=== PATIENT | male | born 1955 | race Caucasian/White ===

== ENCOUNTER 2021-08-07 18:19 | Emergency (ER) | payer MEDICARE, OTHER, SELFPAY ==
--- NOTE | ~2021-08-07 | CT_ITS ---
EXAMINATION: CT abdomen pelvis wo con DATE: 08/07/2021 20:48 INDICATION: Bilateral flank pain radiating to lower abdomen for one month TECHNIQUE: Computed tomography (CT) of the abdomen and pelvis was performed without intravenous contr ast. Automated exposure control and iterative reconstruction technique were employed. Exam dose: 208 .97 mGy-cm total exam DLP. COMPARISON: 06/10/2019 CT abdomen pelvis with IV contrast material FINDINGS: There is chronic discoid scarring at the lung bases. Normal heart size. No pericardial or p leural effusion. Small sliding hiatal hernia. Status post cholecystectomy. The liver, spleen, pancreas, and adrenal glands are unremarkable. No stefan e duct or pancreatic duct dilatation. There is bilateral perinephric stranding; consider pyelonephritis. Multiple bilateral renal cysts are noted. No urinary tract calculus or hydroureteronephrosis. The uri nary bladder is unremarkable. No evidence of appendicitis. No bowel obstruction, bowel wall thickening, pneumatosis or intraperiton eal free air. There is atherosclerotic calcification of the abdominal aorta and iliac and femoral arteries. No abdo lola aortic aneurysm. No intraperitoneal or retroperitoneal or pelvic mass lesion or adenopathy or a scites. No suspicious osteolytic or osteoblastic lesions. IMPRESSION: Bilateral perinephric stranding; recommend clinical correlation for possible pyelonephri tis No urinary tract calculus or hydroureteronephrosis Bilateral renal cysts Status post cholecystectomy Small sliding hiatal hernia Reviewed, dictated and finalized at [facility]. Reviewed, dictated and finalized at location [facility]. IMPRESSION: Bilateral perinephric stranding; recommend clinical correlation fo r possible pyelonephritis No urinary tract calculus or hydroureteronephrosis Bilateral renal cysts Status post cholecystectomy Small sliding hiatal hernia
[2021-08-07 18:47] VITALS: BP 130/87; PULSE 93; RESP 17; TEMP 36.4; O2SAT 97
[2021-08-07 18:58] LABS: Basophils Percent Auto 0.3 % (0.2-1.2); Eosinophils Absolute Auto 0.1 K/mm3 (0-0.3); Eosinophils Percent Auto 1.1 % (0-4.4); Hematocrit 39.8 % (42.0-52.0); Hemoglobin 13.5 g/dL (14.0-18.0); Immature Granulocyte Absolute 0.04 K/mm3 (0.00-0.031); Immature Granulocyte Percent A 0.4 % (0-0.5); Lymphocytes Percent Auto 30.2 % (18.3-44.2); Mean Corpuscular HGB Conc 33.9 g/dl (32-36); Mean Corpuscular Volume 94.3 fl (80-100); Mean Platelet Volume 9.8 fl (7.4-10.4); Monocytes Absolute Auto 0.8 K/mm3 (0.1-0.6); Monocytes Percent Auto 8.7 % (2.6-8.5); Neutrophils Absolute Auto 5.5 K/mm3 (1.3-6.7); Neutrophils Percent Auto 59.3 % (45.5-73.1); Platelet Count Result 305 k/mm3 (150-375); Red Blood Count 4.22 M/mm3 (4.6-6.20); Red Cell Distribution Width 13.2 % (11.5-14.5); White Blood Count 9.3 K/mm3 (4.5-10.0)
[2021-08-07 19:19] LABS: Add Urine Microscopic? NO; Appearance Urine Clear (Clear); Bilirubin Urine Negative (Negative); Blood Urine Negative (Negative); Color Urine Yellow (Yellow); Glucose Urine UA Negative (Negative); Ketones Urine Negative (Negative); Leukocyte Esterase Ur Negative LEU/UL (Negative); Nitrate Urine Negative (Negative); Protein Urine Negative (Negative); Specific Grav Ur 1.013 (1.001-1.035); Urobilinogen Urine Negative mg/dL (<2.0)
[2021-08-07 19:40] LABS: Anion Gap 11 mmol/L (8-16); Blood Urea Nitrogen 24 mg/dL (9-20); Carbon Dioxide 23 mmol/L (22-30); Chloride 104 mmol/L (98-107); Estimated CRCL calculation 52 ml/min; Estimated Glomerular Filt Rate 55; Glucose 104 mg/dL (65-110); Potassium 4.2 mmol/L (3.4-5.0); Sodium 138 mmol/L (137-145)
[2021-08-07 20:25] VITALS: BP 141/89; PULSE 78; RESP 16; O2SAT 98
--- NOTE | 2021-08-07 20:50 | ED.BACK ---
HPI - Back Pain/Injury General Chief Complaint: Back Pain/Injury Stated Complaint: bilateral flank pain Time Seen by Provider: 08/07/21 20:13 Source: patient Mode of arrival: ambulatory Limitations: no limitations History of Present Illness HPI Narrative: 66-year-old female with complaints of low back pain and flank pain for past few days since this morning his pain has been more intense. He states that his unable to lay down because of the pain. He denies any trauma. He states that he walks about a mile a day. MD elicited complaint: back pain Onset (ago): day(s) (1) Timing: constant Severity: moderate Related Data Allergies Allergy/AdvReac Type Severity Reaction Status Date / Time No Known Allergies Allergy Verified 08/07/21 20:40 Review of Systems Review of Systems: All systems reviewed & are unremarkable except as noted in HPI and below Constitutional: Constitutional: Reports no additional constitutional complaints Eyes: Eyes: Reports no additional eye complaints ENT: Reports system reviewed and no additional complaints, except as documented Cardiovascular: Cardiovascular: Reports no additional cardiovascular complaints Respiratory: Respiratory: Reports no additional respiratory complaints Gastrointestinal: Gastrointestinal: Reports as per HPI Genitourinary: Genitourinary: Reports no additional male genitourinary complaints Musculoskeletal: Musculoskeletal: Reports as per HPI Neurologic: Reports system reviewed and no additional complaints, except as documented Exam Narrative: GENERAL: Well-appearing, well-nourished, and in no acute distress. HEAD: Normocephalic, atraumatic. EYES: PERRLA and EOMI. NECK: Supple. CHEST: Clear to auscultation. No respiratory distress. HEART: Regular rate and rhythm. No murmur heard. Normal peripheral pulses. ABDOMEN: Soft, nontender, nondistended, normal active bowel sounds. No CVA tenderness Back no vertebral point tenderness but has pain in the lower lumbar area between L3-L4-L5 EXTREMITIES: Normal range of motion. No edema. SKIN: Warm, dry, no rash. NEURO: No focal deficits. Alert and oriented x3. PSYCH: Normal mood and affect. Course Course Emergency Course: Patient feeling slightly better with the pain medication I did inform him about his lab work, CT findings. Cause of pain most likely musculoskeletal however the CT report states he has pyelonephritis and send the urine for culture meanwhile given pain medication advised him to follow-up with his primary doctor. Vital Signs Vital signs: Vital Signs Temperature 36.4 C 08/07/21 18:47 Pulse Rate 93 08/07/21 18:47 Respiratory Rate 17 08/07/21 18:47 Blood Pressure 130/87 08/07/21 18:47 Pulse Oximetry 97 08/07/21 18:47 Temperature 36.4 C 08/07/21 18:47 Pulse Rate 78 08/07/21 20:25 Respiratory Rate 16 08/07/21 20:25 Blood Pressure 141/89 H 08/07/21 20:25 Pulse Oximetry 98 08/07/21 20:25 MDM - Back Pain/Injury Lab Data Result diagrams: 08/07/21 18:52 08/07/21 18:52 Labs: Lab Results 08/07/21 08/07/21 08/07/21 Range/Units 18:52 18:52 19:07 WBC 9.3 (4.5-10.0) K/mm3 RBC 4.22 L (4.6-6.20) M/mm3 Hgb 13.5 L (14.0-18.0) g/dL Hct 39.8 L (42.0-52.0) % MCV 94.3 (80-100) fl MCH 32.0 (26-34) pg MCHC 33.9 (32-36) g/dl RDW 13.2 (11.5-14.5) % Plt Count 305 (150-375) k/mm3 MPV 9.8 (7.4-10.4) fl Immature Gran % (Auto) 0.4 (0-0.5) % Neut % (Auto) 59.3 (45.5-73.1) % Lymph % (Auto) 30.2 (18.3-44.2) % [place] % (Auto) 8.7 H (2.6-8.5) % Eos % (Auto) 1.1 (0-4.4) % Baso % (Auto) 0.3 (0.2-1.2) % Lymph # (Auto) 2.80 (0.9-3.2) K/mm3 [place] # (Auto) 0.8 H (0.1-0.6) K/mm3 Eos # (Auto) 0.1 (0-0.3) K/mm3 Baso # (Auto) 0.0 (0.0-0.1) K/mm3 Abs Immat Gran (auto) 0.04 H (0.00-0.031) K/mm3 Absolute Neuts (auto) 5.5 (1.3-6.7) K/mm3 Absolute Nucleated RBC 0.0 (0
[2021-08-07] MEDS: SODIUM CHLORIDE 0.9% IV 1,000 ML 150 ML IV CONT (21:00)
[2021-08-07] MEDS: KETOROLAC 30 MG/ML VIAL (*BKC) IV PUSH (21:18)
[2021-08-07 21:40] LABS: Troponin I < 0.012 ng/mL (0.000-0.034)
[2021-08-07 21:47] VITALS: BP 136/83; PULSE 70; RESP 16; O2SAT 98
== END 2021-08-07 21:50 | disposition home or self-care (01) ==
PROVIDERS: Emergency Provider Family Medicine
DX: S39.012A Strain of muscle, fascia and tendon of lower back, initial encounter (principal); N28.1 Cyst of kidney, acquired; K44.9 Diaphragmatic hernia without obstruction or gangrene; X58.XXXA Exposure to other specified factors, initial encounter
CPT/HCPCS: 36415; 74176; 80048; 81003; 84484; 85025; 96361; 96374; 99284; J1885; J7030

== ENCOUNTER 2024-08-13 16:45 | Emergency (ER) | payer MEDICARE, OTHER, SELFPAY ==
[2024-08-13] VITALS (17 sets, daily range): BP systolic 111–128; BP diastolic 64–84; PULSE 59–98; RESP 8–35; TEMP 36.7; O2SAT 95–99
--- NOTE | ~2024-08-13 | CT_ITS ---
CTA brain carotid Ordering provider: Eileen White PA-C History: . lightheadedness/syncope . Comparison: None. Technique: CT angiogram head and neck was performed following timed intravenous injection of contrast . Thin slice axial images and reformatted coronal images were obtained. Three dimensional reformatted images of the brain were also obtained using a Directr workstation. Radiation reduction technique ut ilized. DLP is 1000 2237.39 mGy-cm. 100 mL Omnipaque 350 was given IV. FINDINGS: HEAD: The inferior sagittal sinus is not demonstrated. --ANTERIOR AND MIDDLE CEREBRAL ARTERIES AND BRANCHES: Normal caliber and contour. --INTERNAL CAROTID ARTERIES: Mild atheromatous disease but no significant stenosis. No occlusion. --BASILAR ARTERY AND BRANCHES: Normal caliber and contour. No atheromatous disease. --POSTERIOR CEREBRAL ARTERIES: Normal caliber and contour --POSTERIOR COMMUNICATING ARTERIES: Not visualized which is probably related to congenital absence or small size. --ANEURYSM: None visualized. --BRAIN: Please refer to report of CT head performed the same day. --BONES AND SUPERFICIAL SOFT TISSUES: Please refer to report of CT head performed the same day. --PARANASAL SINUSES AND MASTOIDS: Please refer to report of CT head done the same day. NECK: --RIGHT CERVICAL CAROTID SYSTEM: Mild atheromatous disease of the carotid bulb and proximal internal carotid artery without significant stenosis. Percent stenosis per NASCET criteria is 0%. No carotid dissection. Otherwise, no significant atheromatous disease or stenosis of the cervical carotid system . --LEFT CERVICAL CAROTID SYSTEM: Mild atheromatous disease of the carotid bulb and proximal internal c arotid artery without significant stenosis. Percent stenosis per NASCET criteria is 0%. No carotid d issection. Otherwise, no significant atheromatous disease or stenosis of the cervical carotid system. --VERTEBRAL ARTERIES: Normal caliber and contour. --VISUALIZED AORTIC ARCH AND BRANCHING VESSELS: Mild atheromatous disease but no significant stenosis . --SOFT TISSUES: Normal. Dependent atelectatic changes. --CERVICAL SPINE: Age appropriate degenerative changes. IMPRESSION: 1. Normal CTA head and neck. Percent stenosis per NASCET criteria is 0%. No intracranial occlusion or significant stenosis seen. 2. Nonvisualization of the inferior sagittal venous sinus. Reviewed, dictated and finalized at location A. IMPRESSION: 1. Normal CTA head and neck. Percent stenosis per NASCET criteria is 0%. No i ntracranial occlusion or significant stenosis seen. 2. Nonvisualization of the inferior sagittal venous sinus.
--- NOTE | ~2024-08-13 | CT_ITS ---
CT brain wo con Ordering provider: Eileen White PA-C History: 69 years Male with . syncope . Comparison: None. Technique: CT of the head without contrast. Radiation reduction technique utilized. The dose-length product was 681 mGy-cm. FINDINGS: BRAIN PARENCHYMA AND CSF SPACES: No midline shift, mass effect or hemorrhage. The brain parenchyma a nd CSF spaces are otherwise normal. VISUALIZED PARANASAL SINUSES: Well aerated. MASTOIDS: Well aerated. BONES: The bones appear intact. SOFT TISSUES: Visualized nasopharynx is normal. Superficial soft tissues are normal. IMPRESSION: No acute intracranial findings. Reviewed, dictated and finalized at location A.
--- NOTE | ~2024-08-13 | XR_ITS ---
XR chest 2V Ordering provider: Tr Wright MD History: 69 years Male with . syncope . Comparison: None. FINDINGS: MEDIASTINUM: The cardiac silhouette is not enlarged. LUNGS: No infiltrates, effusions or pneumothorax. OTHER: No free air under the diaphragm. IMPRESSION: No acute cardiopulmonary pathology. Reviewed, dictated and finalized at location A.
--- NOTE | ~2024-08-13 | CT_ITS ---
CT cervical spine wo con Ordering provider: Eileen White PA-C History: . NECK PAIN . Comparison: None. Technique: CT of the cervical spine was performed without contrast. Sagittal and coronal reformatted images were also obtained and reviewed. Automated exposure control and iterative reconstruction sonya hnique were employed. The dose-length product was 681.00 mGy-cm. FINDINGS: VERTEBRAE: No subluxation or acute fracture. The occipital condyles are intact. Degenerative changes of the spine. DISC SPACES: Narrowing of the disc C5-C6 and C6-C7. Multilevel facet joint disease. Multilevel uncove rtebral joint osteoarthritic changes. Narrowing of the foramina at the level of bilateral C3-C4, righ t C4-C5, bilateral C5-C6 and left C6-C7. PARASPINOUS SOFT TISSUES: Bilateral carotid calcification. Dependent atelectatic changes in the lungs . IMPRESSION: No acute osseous abnormality cervical spine. Multilevel degenerative disc disease with variable degrees of intervertebral foraminal narrowing. Reviewed, dictated and finalized at location A. IMPRESSION: No acute osseous abnormality cervical spine. Multilevel degenerative disc disease with variable degrees of intervertebral fo raminal narrowing.
--- NOTE | 2024-08-13 16:47 | ECG_ITS ---
Test Date: 2024-08-13 17:07:08 Measurements Intervals [place] Rate: 81 P: 68 SD: 211 QRS: -50 QRSD: 117 T: 72 QT: 361 QTc: 419 Interpretive Statements SINUS RHYTHM WITH FIRST DEGREE AV BLOCK INCOMPLETE RIGHT BUNDLE BRANCH BLOCK LEFT ANTERIOR FASCICULAR BLOCK BASELINE ARTIFACT- I, III, V2 ABNORMAL ECG No previous ECG available for comparison Electronically Signed On 08-13-2024 19:24:19 CDT by Sixto Mejia D.O.
--- NOTE | 2024-08-13 17:14 | PC.NURSE ---
pt informed about the need of a urine sample
[2024-08-13] MEDS: SODIUM CHLORIDE 0.9% IV 1,000 ML 999 ML IV CONT ×2 (17:17→18:48)
[2024-08-13 17:20] LABS: Basophils Percent Auto 0.4 % (0.2-1.2); Eosinophils Absolute Auto 0.1 K/mm3 (0-0.3); Eosinophils Percent Auto 0.6 % (0-4.4); Hematocrit 36.8 % (42.0-52.0); Hemoglobin 12.5 g/dL (14.0-18.0); Immature Granulocyte Absolute 0.02 K/mm3 (0.00-0.031); Immature Granulocyte Percent A 0.3 % (0-0.5); Lymphocytes Absolute Auto 1.85 K/mm3 (0.9-3.2); Lymphocytes Percent Auto 23.5 % (18.3-44.2); Mean Corpuscular Volume 91.3 fl (80-100); Mean Platelet Volume 9.6 fl (7.4-10.4); Monocytes Absolute Auto 0.4 K/mm3 (0.1-0.6); Monocytes Percent Auto 5.2 % (2.6-8.5); Neutrophils Absolute Auto 5.5 K/mm3 (1.3-6.7); Platelet Count Result 295 k/mm3 (150-375); Red Blood Count 4.03 M/mm3 (4.6-6.20); Red Cell Distribution Width 13.4 % (11.5-14.5); White Blood Count 7.9 K/mm3 (4.5-10.0)
[2024-08-13 17:41] LABS: Alanine Aminotransferase 14 U/L (6-50); Albumin Level 4.2 g/dL (3.5-5.1); Alkaline Phosphatase 79 U/L (38-126); Anion Gap 8 mmol/L (4-12); Aspartate Amino Transferase 23 U/L (17-59); Bilirubin,Total 0.4 mg/dL (0.2-1.3); Blood Urea Nitrogen 18 mg/dL (9-20); Carbon Dioxide 23 mmol/L (22-30); Chloride 94 mmol/L (98-107); Creatine Kinase 56 U/L (55-170); Estimated Glomerular Filt Rate 60; Glucose 149 mg/dL (65-110); Sodium 125 mmol/L (137-145)
[2024-08-13 17:43] LABS: Troponin I < 0.012 ng/mL (0.000-0.034)
[2024-08-13 17:45] LABS: Potassium 3.7 mmol/L (3.4-5.0)
--- NOTE | 2024-08-13 18:40 | ED.DIZZY ---
HPI - Dizziness General Chief Complaint: Syncope <AUSTIN Kinney Last Filed: 08/14/24 03:51> Stated Complaint: syncope, low blood pressure <AUSTIN Kinney Last Filed: 08/14/24 03:51> Time Seen by Provider: 08/13/24 17:04 <AUSTIN Kinney Last Filed: 08/14/24 03:51> Source: patient <AUSTIN Kinney Last Filed: 08/14/24 03:51> Mode of arrival: ambulatory <AUSTIN Kinney Last Filed: 08/14/24 03:51> Limitations: no limitations <AUSTIN Kinney Last Filed: 08/14/24 03:51> History of Present Illness HPI Narrative: Patient is a 69-year-old male who presents the ED with report of syncope. Patient reports he walks his dogs on the bike trail every morning. This morning he was walking and began feeling lightheaded. Noticed black spots in his vision. He sat down quickly to avoid falling. He then woke up on the ground appeared to have passed out. He is unsure how long he out for. He does mention he has had intermittent lightheadedness with movement and standing upright for the last several months. [facility]. Has never been told he may have vertigo. He has never passed out before. Patient does still feel somewhat lightheaded with movements currently. Denies BEAL, vision changes, focal weakness/numbness, chest pain, palpitations, shortness of breath, abdominal pain, nausea, vomiting. <AUSTIN Kinney Last Filed: 08/14/24 03:51> Related Data Home Medications: Home Medications Medication Instructions Recorded Confirmed dicyclomine 10 mg capsule 10 mg PO BID PRN abdominal pain 06/01/24 06/01/24 doxazosin 8 mg tablet 8 mg PO QHS 06/01/24 06/01/24 finasteride 5 mg tablet 5 mg PO DAILY 06/01/24 06/01/24 oxybutynin chloride 10 mg 10 mg PO DAILY 06/01/24 06/01/24 tablet,extended release 24 hr rosuvastatin 10 mg tablet 5 mg PO DAILY 06/01/24 06/01/24 sildenafil 50 mg tablet 50 mg PO DAILY PRN 06/01/24 06/01/24 <Eileen White PA-C - Last Filed: 08/14/24 03:51> Allergies/Adverse Reactions: Allergies Allergy/AdvReac Type Severity Reaction Status Date / Time No Known Allergies Allergy Verified 08/13/24 17:14 <Eileen White PA-C - Last Filed: 08/14/24 03:51> Review of Systems Review of Systems: All systems reviewed & are unremarkable except as noted in HPI. <Eileen White PA-C - Last Filed: 08/14/24 03:51> All systems reviewed & are unremarkable except as noted in HPI and below <Eileen White PA-C - Last Filed: 08/14/24 03:51> [facility] Past Medical History Medical History: Medical History BPH (benign prostatic hyperplasia) C. difficile diarrhea (~2017) Hyperlipidemia Irritable bowel syndrome Pancreatitis (~2017) Prediabetes <Eileen White PA-C - Last Filed: 08/14/24 03:51> Surgical History Surgical History: Surgical History Hx of cholecystectomy (~2016) <Eileen White PA-C - Last Filed: 08/14/24 03:51> Family History Family History: Family History Father Hypertension Family history of lung cancer Cerebrovascular accident <Eileen White PA-C - Last Filed: 08/14/24 03:51> Social History Social History: Social History Smoking packs per day: 0.5 Smoking cigarettes per day: 10.0 Years smoked: 40 Smoking pack-years: 20.00 Smoking status: Unknown if ever smoked Tobacco type: cigarettes Alcohol intake: unknown Substance use type: does not use Do You Feel Safe in your Home?: Yes Lack of Transportation: No Lack of Food: Never True Current Housing: I Have Housing Concerned About Future Housing:
[2024-08-13] MEDS: MECLIZINE HCL 25 MG TABLET PO (18:49)
[2024-08-13 19:03] LABS: Add Urine Microscopic? NO; Appearance Urine Clear (Clear); Bilirubin Urine Negative (Negative); Blood Urine Negative (Negative); Color Urine Yellow (Yellow); Glucose Urine UA Negative (Negative); Ketones Urine Negative (Negative); Leukocyte Esterase Ur Negative LEU/UL (Negative); Nitrate Urine Negative (Negative); Protein Urine Negative (Negative); Specific Grav Ur 1.006 (1.001-1.035); Urobilinogen Urine 0.2 mg/dL (<2.0)
[2024-08-13 19:23] LABS: Amphetamine Screen Urine Negative (Negative); Barbiturate Screen Urine Negative (Negative); Benzodiazepines Screen Urine Negative (Negative); Cannabinoid Screen Urine Negative (Negative); Cocaine Screen Urine Negative (Negative); Methadone Screen Urine Negative (Negative); Opiate Screen Urine Negative (Negative); Phencyclidine Screen Urine Negative (Negative)
[2024-08-13 20:44] LABS: Ethanol < 10 mg/dL (<10)
[2024-08-13 20:56] LABS: Troponin I < 0.012 ng/mL (0.000-0.034)
== END 2024-08-13 23:11 | disposition home or self-care (01) ==
PROVIDERS: Student in an Organized Health Care Education/Training Program; Emergency Provider Physician Assistant; PCP Internal Medicine
DX: R55 Syncope and collapse (principal); R42 Dizziness and giddiness; E87.1 Hypo-osmolality and hyponatremia; E78.5 Hyperlipidemia, unspecified; N40.0 Benign prostatic hyperplasia without lower urinary tract symptoms; K58.9 Irritable bowel syndrome, unspecified; R73.03 Prediabetes; Z90.49 Acquired absence of other specified parts of digestive tract; I45.10 Unspecified right bundle-branch block; I44.0 Atrioventricular block, first degree; M50.31 Other cervical disc degeneration, high cervical region
CPT/HCPCS: 36415; 70450; 70496; 70498; 71046; 72125; 80053; 80307; 81003; 82550; 83735; 84484; 85025; 93005; 96360; 96361; 99284; A9270; J7030; Q9967

== ENCOUNTER 2024-08-14 14:36 | Emergency (ER) | payer MEDICARE, OTHER, SELFPAY ==
[2024-08-14 14:42] VITALS: BP 121/70; PULSE 86; RESP 16; TEMP 36.9; O2SAT 98
[2024-08-14 16:48] VITALS: BP 113/66; PULSE 70; RESP 16; TEMP 36.6; O2SAT 100
[2024-08-14 17:12] VITALS: BP 147/102; PULSE 64; PULSE 68; RESP 14; O2SAT 100
--- NOTE | 2024-08-14 17:56 | ECG_ITS ---
Test Date: 2024-08-14 18:08:58 Measurements Intervals [place] Rate: 63 P: 61 MN: 268 QRS: -45 QRSD: 105 T: 47 QT: 389 QTc: 401 Interpretive Statements SINUS RHYTHM WITH FIRST DEGREE AV BLOCK LEFT ANTERIOR FASCICULAR BLOCK ABNORMAL ECG Compared to ECG 08/13/2024 17:07:08 Incomplete right bundle-branch block no longer present Electronically Signed On 08-14-2024 18:55:52 CDT by Sixto Mejia D.O.
--- NOTE | 2024-08-14 17:59 | ED.DIZZY ---
HPI - Dizziness General Chief Complaint: Dizziness Stated Complaint: dizziness Time Seen by Provider: 08/14/24 17:25 History of Present Illness HPI Narrative: 69-year-old male with history of prediabetes, BPH, hyperlipidemia GERD presents to the emergency department for dizziness. Patient states he has had intermittent episodes of dizziness for approximately 1 year but they seem to be more frequent over the past couple of days. He states he gets very dizzy when he turns his head too quickly. He came to our ED yesterday after having an episode of dizziness where he saw black spots after walking his dog. He had a full workup including normal EKG, 2- troponins and a CTA brain carotid that was unremarkable. He was found to be hyponatremic which was treated with fluids. He was given the option to stay in the hospital for a MRI and was discharged home after he reported improvement with the meclizine. Patient states he was feeling great last night after he left the hospital and again this morning. Around 9:00 a.m. this morning he states he started to feel dizzy again. States it feels like he is veering to the left when these episodes occur. He states he has not picked up his prescription for meclizine because he has not had time. He denies vision changes, focal numbness or weakness, chest pain or shortness of breath, palpitations, syncope. States he is currently asymptomatic. Related Data Home Medications Medication Instructions Recorded Confirmed dicyclomine 10 mg capsule 10 mg PO BID PRN abdominal pain 06/01/24 06/01/24 doxazosin 8 mg tablet 8 mg PO QHS 06/01/24 06/01/24 finasteride 5 mg tablet 5 mg PO DAILY 06/01/24 06/01/24 oxybutynin chloride 10 mg 10 mg PO DAILY 06/01/24 06/01/24 tablet,extended release 24 hr rosuvastatin 10 mg tablet 5 mg PO DAILY 06/01/24 06/01/24 sildenafil 50 mg tablet 50 mg PO DAILY PRN 06/01/24 06/01/24 Allergies Allergy/AdvReac Type Severity Reaction Status Date / Time No Known Allergies Allergy Verified 08/14/24 14:41 Review of Systems Review of Systems: All systems reviewed & are unremarkable except as noted in HPI and below PMFSH Past Medical History Medical History BPH (benign prostatic hyperplasia) C. difficile diarrhea (~2017) Hyperlipidemia Irritable bowel syndrome Pancreatitis (~2017) Prediabetes Surgical History Surgical History Hx of cholecystectomy (~2017) Family History Family History Father Hypertension Family history of lung cancer Cerebrovascular accident Social History Social History Smoking packs per day: 0.5 Smoking cigarettes per day: 10.0 Years smoked: 40 Smoking pack-years: 20.00 Smoking status: Unknown if ever smoked Tobacco type: cigarettes Alcohol intake: unknown Substance use type: does not use Do You Feel Safe in your Home?: Yes Lack of Transportation: No Lack of Food: Never True Current Housing: I Have Housing Concerned About Future Housing: No Difficulty Paying Gas/Electric Bills: No Difficulty Paying for Meds: No Currently Unemployed: No Education: High School Diploma/GED Difficulty w/ Childcare or Family Care: No Exam Narrative: GENERAL: Well-appearing, well-nourished, and in no acute distress. HEAD: Normocephalic, atraumatic. EYES: PERRLA and EOMI. Horizontal and unidirectional nystagmus to both eyes ENT: Nares clear, no rhinorrhea or epistaxis. Mucous membranes moist. NECK: Supple. CHEST: Clear to auscultation. No respiratory distress. HEART: Regular rate and rhythm. No murmur heard. Normal peripheral pulses. EXTREMITIES: Normal range of motion. No edema. SKIN: Warm, dry, no rash. NEURO: No focal deficits. Alert and oriented x3. Cranial nerves 2-12 intact. Strength 5/5 in
[2024-08-14 18:21] LABS: Basophils Percent Auto 0.5 % (0.2-1.2); Eosinophils Absolute Auto 0.1 K/mm3 (0-0.3); Eosinophils Percent Auto 0.8 % (0-4.4); Hematocrit 37.1 % (42.0-52.0); Hemoglobin 12.4 g/dL (14.0-18.0); Immature Granulocyte Absolute 0.01 K/mm3 (0.00-0.031); Immature Granulocyte Percent A 0.1 % (0-0.5); Lymphocytes Absolute Auto 1.87 K/mm3 (0.9-3.2); Lymphocytes Percent Auto 25.3 % (18.3-44.2); Mean Corpuscular HGB Conc 33.4 g/dl (32-36); Mean Corpuscular Hemoglobin 31.2 pg (26-34); Mean Corpuscular Volume 93.2 fl (80-100); Mean Platelet Volume 9.6 fl (7.4-10.4); Monocytes Absolute Auto 0.5 K/mm3 (0.1-0.6); Monocytes Percent Auto 6.9 % (2.6-8.5); Neutrophils Absolute Auto 4.9 K/mm3 (1.3-6.7); Neutrophils Percent Auto 66.4 % (45.5-73.1); Platelet Count Result 301 k/mm3 (150-375); Red Blood Count 3.98 M/mm3 (4.6-6.20); Red Cell Distribution Width 13.5 % (11.5-14.5); White Blood Count 7.4 K/mm3 (4.5-10.0)
[2024-08-14 18:30] LABS: Alanine Aminotransferase 13 U/L (6-50); Alkaline Phosphatase 72 U/L (38-126); Anion Gap 9 mmol/L (4-12); Aspartate Amino Transferase 20 U/L (17-59); Bilirubin,Total 0.3 mg/dL (0.2-1.3); Blood Urea Nitrogen 15 mg/dL (9-20); Carbon Dioxide 24 mmol/L (22-30); Chloride 103 mmol/L (98-107); Estimated CRCL calculation 52 ml/min; Estimated Glomerular Filt Rate 60; Glucose 99 mg/dL (65-110); Potassium 3.9 mmol/L (3.4-5.0); Sodium 136 mmol/L (137-145)
[2024-08-14] MEDS: SODIUM CHLORIDE 0.9% IV 1,000 ML 999 ML IV CONT (18:34)
[2024-08-14] MEDS: MECLIZINE HCL 25 MG TABLET PO (18:35)
--- NOTE | 2024-09-05 21:07 | PC.NURSE ---
LATE ENTRY This note is being entered to document information to the patient's record. The following information was omitted on [08/14/24], by [Delia Avendaño RN]. Stop time for NS was 1914
== END 2024-08-14 19:31 | disposition home or self-care (01) ==
PROVIDERS: Emergency Provider Physician Assistant; PCP Internal Medicine
DX: R42 Dizziness and giddiness (principal); E78.5 Hyperlipidemia, unspecified; N40.0 Benign prostatic hyperplasia without lower urinary tract symptoms; R73.03 Prediabetes; K21.9 Gastro-esophageal reflux disease without esophagitis; K58.9 Irritable bowel syndrome, unspecified; F17.210 Nicotine dependence, cigarettes, uncomplicated; Z90.49 Acquired absence of other specified parts of digestive tract; Z79.899 Other long term (current) drug therapy; I44.0 Atrioventricular block, first degree; I44.4 Left anterior fascicular block
CPT/HCPCS: 36415; 80053; 85025; 93005; 96360; 99284; A9270; J7030

== ENCOUNTER 2024-12-30 11:25 | Outpatient (CLI) | payer MEDICARE, OTHER, SELFPAY ==
--- OUTSIDE RECORDS SUMMARY | 2024-12-30 13:02 | XMS_ITS | Clinical Summary ---
Author Organization [facility] Address [address] [place] [address] Care Team Providers Care Senior Oracle Soa Developer Name Role Phone Unavailable Primary Care Provider Unavailabl e Source Comments [facility],non-owned Affiliates and Associated Physician Practices is amultiple site organization consisting of ambulatory clinics and hospital sitesin [place], [place], [place] and [place]. This disclosure is being madepursuant to the Care Everywhere program and may not contain all information available regarding this patient. Last updated 18.[employer] Allergies No known active allergies Medications * Be aware that medications may not be up to date on this document. Alwaysverify current medications with the patient. Medication Sig Dispensed Refills Start Date End Date Status VANCOMYCIN HCL PO Active METRONIDAZOLE PO Active OXYCODONE HCL PO Active DOCUSATE SODIUM PO Active AMOXICILLIN ER PO Active aspirin (ASPIRIN) 81 MG tablet Take 81 mg by mouth once daily Active PANTOPRAZOLE SODIUM PO Ac tive Immunizations Name Administration Dates Next Due INFLUENZA VACCINE, HIGH-DOSE , QUADR. (FLUZONE HIGH-DOSE QUADRIVALENT; 65Y+), 0.7 ML (HD-IIV4) 09/14/2020 Social History Tobacco Use Types Packs/Day Years Used Date Smoking Tobacco: Former Smokeless Tobacco: Never Sex and Gender Information Value Date Recorded Sex Assigned at Not on file Gender Identity Not on file Sexual Orientation Not on file Last Filed Vital Signs Vital Sign Reading Time Taken Comments Blood Pressure 138/88 09/20/2017 10:57 AM CDT Pulse 84 09/20/2017 10:57 AM CDT Temperature 36.6 ??C (97.9 ??F) 09/20/2017 10:57 AM C DT Respiratory Rate 16 09/20/2017 10:57 AM CDT Oxygen Saturation 96% 09/20/2017 10:57 AM CDT Inhaled Oxygen Concentration - - Weight 74.8 kg (165 lb) 09/20/2017 10:57 AM CDT Height 175.3 cm (5' 9 ) 09/20/2017 10:57 AM CDT Body Mass Index 24.37 09/20/2017 10:57 AM CDT Plan of Treatment Health Maintenance Due Date Last Done Comments COLOGUARD (AGES 45-75) - COL ON CA SCREENING 1955 COLON MONITORING 1955 COLONOSCOPY - COLON CA SCREENING 1955 CT COLONOGRAPHY - COLON CA SCREENING 1955 Colorectal Cancer Screening 1955 FIT - COLON CA SCREENING 1955 FLEX SIG - COLON CA SCREENING 1955 LIPID TESTING 1955 MEDICARE AWV ? 12 MONTHS 1955 HEPATITIS C SCREENING 07/09/1973 DTAP/TDAP/TD VACCINES (1 - Tdap) 1974 PNEUMOCOCCAL VACCINE 50+ (1 of 1 - PCV) 2005 ZOSTER VACCINE (1 of 2) 2005 AAA SCREENING 2020 COVID-19 VACCINE (1 - 2023-2 5 season) 2024 INFLUENZA VACCINE (#1) 2024 09/14/2020 DEPRESSION SCREENING 11/25/2024 Respiratory Syncytial Virus (RSV) Vaccine Pt: or over 60 yrs (1 - 1-dose 75+ series) 2030 HEPATITIS B VACCINE Aged Out No longe r eligible based on patient's age to complete this topic HIB VACCINE Aged Out No longer eligi ble based on patient's age to complete this topic HPV VACCINE Aged Out No longer eligi ble based on patient's age to complete this topic MENINGOCOCCAL (Group B) VACCINE Aged Out No longer eligible based on patient's age to complete this topic MENINGOCOCCAL VACCINE Aged Out No rachel tea eligible based on patient's age to complete this topic
--- OUTSIDE RECORDS SUMMARY | 2024-12-30 13:02 | XMS_ITS | Continuity of Care Document ---
Author Organization [facility] Address [address] [place] [address] [address] [place] [address] Phone Care Team Providers Care Superintendent Mechanical Name Role Phone Margarita Rodriguez Unavailable Unavailable Advance Directives Directive Yes / No Effective Date File Name No Information Encounters Encounter Description Practice Location Reason(s) For Visit Diagnoses Date Provider Providers Copied on Encounter [facility], [address] [place] [address] [address], [place], [place], [id number], [place] tel:[phone] [facility] No Information [address] Jennifer Avila. [address] [facility] , [address], [place], [address], [place]. tel:[phone] Family History Family Member Type Diagnosis Age At Onset No Information Payers Payer name Insurance type Covered alliance party ID Authoriza tion(s) No Information Social [...]
--- OUTSIDE RECORDS SUMMARY | 2024-12-30 13:02 | XMS_ITS | Clinical Summary ---
Author Organization [facility] Address [address] [place] [address] Care Team Providers Care Drawing Tender Name Role Phone Unavailable Primary Care Provider Unavailabl e Social History Tobacco Use Types Packs/Day Years Used Date Smoking Tobacco: Never Assessed Sex and Gender Information Value Date Recorded Sex Assigned at Not on file Legal Sex Male 8:24 PM CDT Gender Identity Not on file Sexual Orientation Not on file Last Filed Vital Signs Vital Sign Reading Time Taken Comments Blood Pressure 128/86 09/08/2012 11:08 AM CDT Pulse 76 09/08/2012 11:08 AM CDT Temperature - - Respiratory Rate - - Oxygen Saturation - - Inhaled Oxygen Concentration - - Weight 74.8 kg (165 lb) 09/08/2012 11:08 AM CDT Height 175.3 cm (5' 9 ) 09/08/2012 11:08 AM CDT Body Mass Index 24.37 09/08/2012 11:08 AM CDT Plan of Treatment Health Maintenance Due Date Last Done Comments Colorectal Cancer Screening Colonoscopy (10 Years) 1955 Hepatitis C 1973 DTaP, Tdap and Td Vaccines ( 1 - Tdap) 1974 Zoster Vaccines (1 of 2) 2005 Pneumococcal Vaccine: 65+ Ye ars (1 of 1 - PCV) 2020 COVID-19 Vaccine ( - 2023-2 5 season) 2024 Influenza Adult (#1) 2024 RSV Immunization or 60+ Years (1 - 1-dose 75+ series) 2030 Meningococcal B Vaccine Aged Out No l onger eligible based on patient's age to complete this topic Meningococcal Vaccine Aged Out No rachel tea eligible based on patient's age to complete this topic RSV Immunizations Under 20 Months Aged Out No longer eligible based on patient's age to complete this topic
--- OUTSIDE RECORDS SUMMARY | 2024-12-30 13:02 | XMS_ITS | Referral Summary ---
Author Organization [facility] Address [address] [place] [address] Care Team Providers Care Operations Supervisor Chemical Cleaning Name Role Phone Unavailable Primary Care Provider Unavailabl e Source Comments [facility],non-owned Affiliates and Associated Physician Practices is amultiple site organization consisting of ambulatory clinics and hospital sitesin [place], [place], [place] and [place]. This disclosure is being madepursuant to the Care Everywhere program and may not contain all information available regarding this patient. Last updated 18.[employer] Allergies No known active allergies Medications * [...] 09/20/2017 10:57 AM CDT Plan of Treatment Not on file
--- OUTSIDE RECORDS SUMMARY | 2024-12-30 13:02 | XMS_ITS | Patient Health Summary ---
Author Organization [facility] Address [address] [place] [address] Care Team Providers Care Health Science Writer Name Role Phone Unavailable Primary Care Provider Unavailabl e Note from [facility],non-owned Affiliates and Associated Physician Practices is amultiple site organization consisting of ambulatory clinics and hospital sitesin [place], [place], [place] and [place]. This disclosure is being madepursuant to the Care Everywhere program and may not contain all information available regarding this patient. Last updated 18.[facility] Allergies No known active allergies Medications * Be aware that medications may not be up to date on this document. Alwaysverify current medications with the patient. * VANCOMYCIN HCL PO * METRONIDAZOLE PO * OXYCODONE HCL PO * DOCUSATE SODIUM PO * AMOXICILLIN ER PO * aspirin (ASPIRIN) 81 MG tablet Take 81 mg by mouth once daily * PANTOPRAZOLE SODIUM PO Immunizations * INFLUENZA VACCINE, HIGH-DOSE, QUADR. (FLUZONE HIGH-DOSE QUADRIVALENT; 65Y+), 0.7 ML (HD-IIV4)(Given 09/14/2020) Social History Tobacco Use Types Packs/Day Years [...]
--- OUTSIDE RECORDS SUMMARY | 2024-12-30 13:02 | XMS_ITS | Continuity of Care Document ---
Author Organization [facility] Address [address] [place] [address] Phone Care Team Providers Care Director Of Business Operations Name Role Phone Administrative, Provider Unavailable Unavail able Procedures Procedure Date Work/Medical Disability Exam [employer] 2011 Advance Directives Directive Yes / No Effective Date File Name No Information Encounters Encounter Description Practice Location Reason(s) For Visit Diagnoses Date Provider Providers Copied on Encounter [facility], [address] [place], [place] [address] [place] [address], [id number], tel:[phone] [facility] CERVICAL DISC DEGEN 2 Administrative Provider. [address] [place] [address], [place] [address], [place], [place], [address] [place] [address], . tel:[phone] Referring Provider: Markell Aceves, [address] [place] [address] [address] [facility], [place], [address] . tel:[phone] Family History Family Member Type Diagnosis Age At Onset No Information Payers Payer name Insurance type Covered green party ID Authorkarlaa titameka(s) [facility] [id number] Social History Type Description Quantity Date [...]
[2024-12-30 14:09] LABS: Basophils Percent Auto 0.1 % (0.2-1.2); Eosinophils Absolute Auto 0.1 K/mm3 (0-0.3); Eosinophils Percent Auto 0.8 % (0-4.4); Hemoglobin 11.9 g/dL (14.0-18.0); Immature Granulocyte Absolute 0.05 K/mm3 (0.00-0.031); Immature Granulocyte Percent A 0.7 % (0-0.5); Lymphocytes Absolute Auto 2.09 K/mm3 (0.9-3.2); Lymphocytes Percent Auto 28.7 % (18.3-44.2); Mean Corpuscular HGB Conc 32.2 g/dl (32-36); Mean Corpuscular Hemoglobin 30.1 pg (26-34); Mean Corpuscular Volume 93.4 fl (80-100); Mean Platelet Volume 9.6 fl (7.4-10.4); Monocytes Absolute Auto 0.8 K/mm3 (0.1-0.6); Monocytes Percent Auto 10.8 % (2.6-8.5); Neutrophils Absolute Auto 4.3 K/mm3 (1.3-6.7); Neutrophils Percent Auto 58.9 % (45.5-73.1); Platelet Count Result 469 k/mm3 (150-375); Red Blood Count 3.96 M/mm3 (4.6-6.20); Red Cell Distribution Width 13.5 % (11.5-14.5); White Blood Count 7.3 K/mm3 (4.5-10.0)
== END 2024-12-30 11:26 | disposition home or self-care (01) ==
LOC: ANHGOSHLAB 11:27
PROVIDERS: PCP Internal Medicine; Visit Provider Clinical Nurse Specialist
DX: R73.9 Hyperglycemia, unspecified (principal); D64.9 Anemia, unspecified
CPT/HCPCS: 36415; 83036; 85025

== ENCOUNTER 2025-01-18 08:42 | Emergency (ER) | payer MEDICARE, OTHER, SELFPAY ==
--- NOTE | ~2025-01-18 | CT_ITS ---
EXAMINATION: CT abdomen pelvis w con DATE: 01/18/2025 11:48 INDICATION: Diarrhea. Lower abdominal pain and cramping. TECHNIQUE: Computed tomography (CT) of the abdomen and pelvis was performed with 100 mL Omnipaque-350 intravenous contrast. Automated exposure control and iterative reconstruction technique were employe d. The dose-length product was 350.02 mGy-cm. COMPARISON: 08/07/2021 FINDINGS: Discoid atelectasis at the bilateral lung bases. Heart size is normal. No pericardial or pleural effu chrissy. Heart size is normal. No pericardial or pleural effusion.. Small sliding-type hiatal hernia. Ch olecystectomy clips in the gallbladder fossa. 6 mm hepatic cyst. Spleen, pancreas and bilateral adren al glands are normal. There are bilateral renal cysts the largest on the left measuring up to 3.7 cm. Bowels including the appendix are normal. Bladder is normal. No free intraperitoneal gas or fluid. N o pathologically enlarged abdominal or pelvic lymphadenopathy. IMPRESSION: 1. No acute intra-abdominal/pelvic process. Reviewed, dictated and finalized at location B. NT LIAISON
[2025-01-18 08:47] VITALS: BP 133/79; PULSE 114; RESP 18; TEMP 36.1; O2SAT 98
--- OUTSIDE RECORDS SUMMARY | 2025-01-18 09:02 | XMS_ITS | CLINICAL SUMMARY ---
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 Name Role Phone Krishna Avila Unavailable [phone] Nahed Bush Unavailable [facility] Unavailable [phone] SOCIAL HISTORY Social History Observation Description Dates Observed Current Smoking Status Current every day smoker 20231004 Sex Male [id number] VITAL SIGNS BMI Body Mass Index Percentile Date Systolic Diastolic Head Circumference Head Circumference Percentile Height Oxygen Concentration Pulse Pulse Oximeter Respiratory Rate Temperature Weight Udoefh-zxh-xouiny Percentile 24.8 82 kg/m 2 Unknown 110 130 mmHg 70 mmHg Unknown Unknown 69 [in_i] Unknown 81 /min 97 % 18 /min 98.1 168.5 [lb_av] Unknown ALLERGIES AND ADVERSE REACTIONS No known allergies MEDICATIONS Medication Directions Start Date Form Frequency Route Duration Duration Units Status Strength Strength Units of Measure albuterol sulfate Take 2 Application (inhalation ) 4 times per day for 7 days 20221125 10 HFA aeros ol inhal er 4 times per day inhala tion 7 days suspend ed 90 mcg/actua tion Bromfed DM Take 10 ml (oral) 3 times per day PRN - Cough for 7 days 20221125 10 syrup 3 times per day oral 7 days suspend ed 2-30-10 mg/5 mL prednisone Take 1 tablet (oral) 1 time per day for 5 days 20221125 10 table t 1 time per day oral 5 days suspend ed 50 MG Bromfed DM Take 10 ml (oral) 3 times per day PRN - Cough for 7 days 20231125 syrup 3 times per day oral 7 days suspend ed 2-30-10 mg/5 mL Paxlovid Take 1 (oral) per package directions 20231125 Table t, Dose Pack per package directions oral No set duration recorded No set duration amount recorded active 300 mg (150 mg x 2)-100 mg Bromfed DM Take 10 ml (oral) 3 times per day PRN - Cough for 7 days syrup 3 times per day oral 7 days active 2-30-10 mg/5 mL Tamiflu Take 1 Capsule (oral) 1 time per day for 10 days capsu le 1 time per day oral 10 days active 75 MG finasteride Take No date record ed No form recor ded No frequency recorded No route record ed No set duration recorded No set duration amount recorded active No dosage strength recorded No dosage strength units of measure recorded pantoprazol e Take No date record ed No form recor ded No frequency recorded No route record ed No set duration recorded No set duration amount recorded active No dosage strength recorded No dosage strength units of measure recorded rosuvastati n Take No date record ed No form recor ded No frequency recorded No route record ed No set duration recorded No set duration amount recorded active No dosage strength recorded No dosage strength units of measure recorded PROBLEM LIST Names Dates Status Hyperlipidemia No date recorded active Acute upper respiratory infection, unspecified 2 8020156 active Other specified symptoms and signs involving the circulatory and respiratory systems 72048866 active COVID-19 [id number] active Acute cough 07434686 active Other specified symptoms and signs involving the circulatory and respiratory systems 84040821 active Acute upper respiratory infection, unspecified 2 0008792 active Influenza due to unidentifie d influenza virus with other manifestations No date recorded undefined Fever, unspecified 45560193 active Other fatigue 24606008 active Headache, unspecified 96174556 active FAMILY HISTORY ENCOUNTERS Encounter Performer Location E/M Code E/M Label Date Diagnosi s visit [facility] [address] Office or other outpatient visit (detailed) [id number] Acute upper respiratory infection, unspecified visit [facility] [address] Office or other outpatient visit (detailed) 17563280 Other specified symptoms and signs involving the circulatory and respiratory systems LAB RESULTS Overall Code Overall Text [Code] Result Type (Code) Result Text Result Value Relevant Reference Range Date Lab Name [facility] No overall lab code recorded PPE Worn {PPE} QTY(1) No result type code recorded PPE Worn {PPE} QTY(1) No range recorded 20221125 No lab name record ed No street recorded No city recor ded No state record ed No zip code recor ded INSURANCE PROVIDERS (PAYERS) Payer name Policy type / Coverage type Policy ID Covered green party ID Insurance type Policy [employer] [id number] ? Primary [facility] PROCEDURE NOTE Date Name Status Summary Text (N otes) 20231004 PPE Worn {PPE} Completed PPE Worn {PPE } QTY(1) None recorded None recorded None recorded None recorde d None recorded None recorded None recorded None recorde d PROCEDURES Date Name Status Summary Text (N otes) 20231004 PPE Worn {PPE} Completed PPE Worn {PPE } QTY(1) None recorded None recorded None recorded None recorde d None recorded None recorded None recorded None recorde d ASSESSMENTS No information recorded LABORATORY REPORT NARRATIVE NOTE No information recorded PATHOLOGY REPORT NARRATIVE NOTE No information recorded IMAGING NARRATIVE Result Code Result Text Date Status Urgency Interp retation None None None None None None DISCHARGE SUMMARY NOTE * Allergies: No known allergies * Medication Current: Medication Directions Start Date Form Frequency Route Duration Duration Units Status Strength Strength Units of Measure albuterol sulfate Take 2 Application (inhalation ) 4 times per day for 7 days 20221125 10 HFA aeros ol inhal er 4 times per day inhala tion 7 days suspend ed 90 mcg/actua tion Bromfed DM Take 10 ml (oral) 3 times per day PRN - Cough for 7 days 20221125 10 syrup 3 times per day oral 7 days suspend ed 2-30-10 mg/5 mL prednisone Take 1 tablet (oral) 1 time per day for 5 days 20221125 10 table t 1 time per day oral 5 days suspend ed 50 MG Bromfed DM Take 10 ml (oral) 3 times per day PRN - Cough for 7 days 20231125 08 syrup 3 times per day oral 7 days suspend ed 2-30-10 mg/5 mL Paxlovid Take 1 (oral) per package directions 20231125 08 Table t, Dose Pack per package directions oral No set duration recorded No set duration amount recorded active 300 mg (150 mg x 2)-100 mg Bromfed DM Take 10 ml (oral) 3 times per day PRN - Cough for 7 days syrup 3 times per day oral 7 days active 2-30-10 mg/5 mL Tamiflu Take 1 Capsule (oral) 1 time per day for 10 days capsu le 1 time per day oral 10 days active 75 MG finasteride Take No date record ed No form recor ded No frequency recorded No route record ed No set duration recorded No set duration amount recorded active No dosage strength recorded No dosage strength units of measure recorded pantoprazol e Take No date record ed No form recor ded No frequency recorded No route record ed No set duration recorded No set duration amount recorded active No dosage strength recorded No dosage strength units of measure recorded rosuvastati n Take No date record ed No form recor ded No frequency recorded No route record ed No set duration recorded No set duration amount recorded active No dosage strength recorded No dosage strength units of measure recorded * Plan of Care (advice, pending tests, pending diagnostic tests): Treatment Type Code Text Date Observatio n Data Instruction [id number] Patient Education 2023-10-04 Recomm end follow up with PCP in 7-10 days if still not better. Instruction [id number] Patient Education 2023-10-04 May us e Afrin 2 puffs 2 times a day for 3 days, and then stop using. It has very high dependancy potential and may lead to a rebound congestion effect. Instruction [id number] Patient Education 2023-10-04 - do f requent valsalva maneuvers throughout the day - apply warm compresses to the outer ear several times a day - use Afrin (oxymetazoline) nasal spray twice a day for 3 days Instruction [id number] Patient Education 2023-10-04 You ar e currently suffering from an illness which is most likely viral, antibiotics will not be effective in treating your illness. The symptoms can last anywhere from 7- 10 days, with the cough persisting for up to 3 weeks. The most effective treatment is simply for symptom relief, with cough suppressants, decongestants, and pain/fever reducers. Please discuss over the counter medication options with your pharmacist. Instruction [id number] Patient Education 2023-10-04 Nasal saline rinse/spray 3-4 times per day Instruction [id number] Patient Education 2023-10-04 If you r condition worsens we recommend that you receive another evaluation at the emergency room immediately or contact your primary medical clinics after hours call service to discuss your concerns. You must understand that you've received an Urgent Care treatment only and that you may be released before all of your medical problems are known or treated. You, the patient, will arrange for follow up care as instructed. Instruction [id number] Patient Education 2023-10-04 Please use over the counter cough remedies, discuss the best options with your pharmacist. Instruction [id number] Patient Education 2023-10-04 Please take prednisone/Medrol mark after meals. Avoid concurrent use of OTC NSAID unless recommended by your provider * Visit Diagnosis: Acute upper respiratory infection, unspecified (J06.9) Other specified symptoms and signs involving the circulatory and respiratory systems (R09.89) * Referrals: First Name Last Name NPI# Reason None recorded None recorded None recorded None recorde d HISTORY AND PHYSICAL NOTE * Reason for Visit: Patient Reports: Congestion; Cough [Onset: 09/20/2023; Frequency: Constant; Duration: 2 Week(s); Free text: 68yr. old male presents with cough and congestion. Pt. states that cough is worse at night and when coughing pt. states that he feels phlegmin his chest but it won't come out. Pt. has declind testing.]. * Family History: * Smoking Status: Current every day smoker 20231004 * Allergies: No known allergies * Problems: Names Dates Status Hyperlipidemia No date recorded active Acute upper respiratory infection, unspecified 2 0970006 active Other specified symptoms and signs involving the circulatory and respiratory systems 20231004 active COVID-19 14666748 active Acute cough 20241006 active Other specified symptoms and signs involving the circulatory and respiratory systems 20241006 active Acute upper respiratory infection, unspecified 2 6939050 active Influenza due to unidentifie d influenza virus with other manifestations No date recorded undefined Fever, unspecified 98779811 active Other fatigue 41080617 active Headache, unspecified 61110794 active * Vitals: BMI Body Mass Index Percentile Date Systolic Diastolic Head Circumference Head Circumference Percentile Height Oxygen Concentration Pulse Pulse Oximeter Respiratory Rate Temperature Weight Wmlzmi-bmv-vvmdlr Percentile 24.8 82 kg/m 2 Unknown 110 130 mmHg 70 mmHg Unknown Unknown 69 [in_i] Unknown 81 /min 97 % 18 /min 98.1 168.5 [lb_av] Unknown * Review of Systems: All non-documented systems reviewed and considered negative. * *Systemic* Patient Denies* Fever * Allergy/Immun* Patient Denies* Allergy symptoms * ENT/Mouth* Patient Denies* Sore throat * Eyes* Patient Denies* Vision changes * GI* Patient Denies* Nausea * * Patient Denies* Decreased urinary output * Reinaldo/Lymph* Patient Denies* Lymphadenopthy (Swollen Lymph Nodes) * Musc/Skel* Patient Denies* Swelling * Respiratory* Patient Reports* Congestion * Cough (Onset: 09/20/2023; Frequency: Constant; Duration: 2 Week(s); Free text: 68yr. old male presents with cough and congestion. Pt. states that cough is worse at night and when coughing pt. states that he feels phlegmin his chest but it won't come out. Pt. has declind testing.) * Skin/Breast* Patient Denies* Rash * Exam: * General : Normal* Normal : Well developed,No acute distress * Skin, Hair, Nails : Normal* Normal : No rashes noted,No Abrasions observed * Head : Abnormal* Normal : Normocephalic,Non-tender right frontal sinus,Non- tender left frontal sinus,Non-tender nasal bridge,No evidence of trauma * Abnormal : Tender right maxillary sinus,Tender left maxillary sinus * Eyes : Normal* Normal : Pupils Equal, Round, Reactive to Light and Accomodation,Sclera normal,Lids and lashes are normal,Normal conjunctiva,Nystagmus absent,Photophobia absent * Ears : Normal* Normal : Normal TM(s), Normal pinna bilaterally, Normal external canals bilaterally * Nose : Normal* Normal : Nasal discharge absent,Normal appearing nose * Oral pharynx : Abnormal* Normal : Lips appear normal,Normal tongue,Normal gingiva,Normal appearing tonsils,Normal soft palate,Normal dentitia * Abnormal : Posterior pharynx is erythematous * Neck : Normal* Normal : Neck is grossly unremarkable upon exam * Lymph Nodes : Normal* Normal : Lymph nodes are grossly unremarkable upon exam * Chest/Lungs : Normal* Normal : No signs of respiratory distress,Chest is clear to auscultation bilaterally upon exam,Normal and symmetrical appearing chest on exam * Cardiac : Normal* Normal : Heart normal to auscultation,Normal heart rate noted,Peripheral edema absent * Plan of Care (advice, pending tests, pending diagnostic tests): Treatment Type Code Text Date Observatio n Data Instruction [id number] Patient Education 2023-10-04 Recomm end follow up with PCP in 7-10 days if still not better. Instruction [id number] Patient Education 2023-10-04 May us e Afrin 2 puffs 2 times a day for 3 days, and then stop using. It has very high dependancy potential and may lead to a rebound congestion effect. Instruction [id number] Patient Education 2023-10-04 - do f requent valsalva maneuvers throughout the day - apply warm compresses to the outer ear several times a day - use Afrin (oxymetazoline) nasal spray twice a day for 3 days Instruction [id number] Patient Education 2023-10-04 You ar e currently suffering from an illness which is most likely viral, antibiotics will not be effective in treating your illness. The symptoms can last anywhere from 7- 10 days, with the cough persisting for up to 3 weeks. The most effective treatment is simply for symptom relief, with cough suppressants, decongestants, and pain/fever reducers. Please discuss over the counter medication options with your pharmacist. Instruction [id number] Patient Education 2023-10-04 Nasal saline rinse/spray 3-4 times per day Instruction [id number] Patient Education 2023-10-04 If you r condition worsens we recommend that you receive another evaluation at the emergency room immediately or contact your primary medical clinics after hours call service to discuss your concerns. You must understand that you've received an Urgent Care treatment only and that you may be released before all of your medical problems are known or treated. You, the patient, will arrange for follow up care as instructed. Instruction [id number] Patient Education 2023-10-04 Please use over the counter cough remedies, discuss the best options with your pharmacist. Instruction [id number] Patient Education 2023-10-04 Please take prednisone/Medrol mark after meals. Avoid concurrent use of OTC NSAID unless recommended by your provider * Lab Results: Overall Code Overall Text [Code] Result Type (Code) Result Text Result Value Relevant Reference Range Date Lab Name Street City State Zip Code No overall lab code recorded PPE Worn {PPE} QTY(1) No result type code recorded PPE Worn {PPE} QTY(1) No range recorded 20221125 No lab name record ed No street recorded No city recor ded No state record ed No zip code recor ded * Radiology Results: Overall Code Overall Text [Code] Result Type (Code) Result Text Result Value Relevant Reference Range Date Lab Name Street City State Zip Code None recorded None recorded None recorded None recorded None recorded None recorded None recor ded None recor ded None recorde d None recor ded None record ed None recor ded * Visit Diagnosis: Acute upper respiratory infection, unspecified (J06.9) Other specified symptoms and signs involving the circulatory and respiratory systems (R09.89) * Referrals: First Name Last Name NPI# Reason None recorded None recorded None recorded None recorde d PLAN OF TREATMENT Treatment Type Code Text Date Instructio n Data Instruction [id number] Patient Education 2023-10-04 Recomm end follow up with PCP in 7-10 days if still not better. Instruction [id number] Patient Education 2023-10-04 May us e Afrin 2 puffs 2 times a day for 3 days, and then stop using. It has very high dependancy potential and may lead to a rebound congestion effect. Instruction [id number] Patient Education 2023-10-04 - do f requent valsalva maneuvers throughout the day - apply warm compresses to the outer ear several times a day - use Afrin (oxymetazoline) nasal spray twice a day for 3 days Instruction [id number] Patient Education 2023-10-04 You ar e currently suffering from an illness which is most likely viral, antibiotics will not be effective in treating your illness. The symptoms can last anywhere from 7- 10 days, with the cough persisting for up to 3 weeks. The most effective treatment is simply for symptom relief, with cough suppressants, decongestants, and pain/fever reducers. Please discuss over the counter medication options with your pharmacist. Instruction [id number] Patient Education 2023-10-04 Nasal saline rinse/spray 3-4 times per day Instruction [id number] Patient Education 2023-10-04 If you r condition worsens we recommend that you receive another evaluation at the emergency room immediately or contact your primary medical clinics after hours call service to discuss your concerns. You must understand that you've received an Urgent Care treatment only and that you may be released before all of your medical problems are known or treated. You, the patient, will arrange for follow up care as instructed. Instruction [id number] Patient Education 2023-10-04 Please use over the counter cough remedies, discuss the best options with your pharmacist. Instruction [id number] Patient Education 2023-10-04 Please take prednisone/Medrol mark after meals. Avoid concurrent use of OTC NSAID unless recommended by your provider CHIEF COMPLAINT AND REASON FOR VISIT NARRATIVE Patient Reports: Congestion; Cough [Onset: 09/20/2023; Frequency: Constant; Duration: 2 Week(s); Free text: 68yr. old male presents with cough and congestion. Pt. states that cough is worse at night and when coughing pt. states that he feels phlegmin his chest but it won't come out. Pt. has declind testing.].
--- OUTSIDE RECORDS SUMMARY | 2025-01-18 09:02 | XMS_ITS | Data Portability ---
Author Organization [place] [facility], Main Office Address [address] [place] [address] Assessment Encounter Date Assessment Date Assessment LastModified by Organization Details LastModified Time 09/09/2023 09/09/2023 Patient has righ t knee pain mostly medially he has had 2 previous knee arthroscopies on this knee back in the s and has likely developed some osteoarthritis particularly medial and patellofemoral compartments. We talked about treatment options for this in detail today we talked about gel shots versus cortisone and oral prednisone he want to proceed with cortisone and oral prednisone therefore under sterile conditions I injected the patient's right knee joint in the office with 4 cc 0.5% ropivacaine and 20 mg of Kenalog. Patient tolerated the procedure well. I will see him back in a month if his symptoms continue to be significant we can try a course of gel shots we talked about this in detail today as well. We will see how he does with time he voiced understanding agrees above plan he will call for any further problems difficulties or questions. I do suspect he has more osteoarthritis than the plain x-rays reveal if his symptoms continue when he returns we will get a 30 degree PA view as well. Not available 09/09/2023 12:16:54 06/23/2024 06/23/2024 The patient has moderate primary osteoarthritis of the right knee joint with significant chondromalacia patella, resulting in crepitation aching pain with more activity. We talked about treatment options today he had cortisone last time this worked well for him but he would like to try something different we talked about gel shots he would like to proceed therefore today under sterile conditions I injected the patient's right knee joint in the office with Orthovisc injection number 1. I will see him back next time for the 2nd injection right knee. He was given a brochure on Orthovisc we talked about it in detail today, we talked about the differences between cortisone and Orthovisc and he elected to go with the Orthovisc. Hopefully this will work for him given time. He voiced understanding agrees above plan he will ice his knee if necessary and avoid lots of squatting or kneeling or stair climbing when he can due to the fact that he does have significant wear behind the kneecap. Not available 06/23/2024 15:34:56 07/07/2024 07/07/2024 The patient has moderate primary osteoarthritis of the right knee joint with chronic pain under sterile conditions I injected the patient's right knee joint in the office today with Orthovisc injection number 2. I will see him back next week for the 3rd injection right knee voiced understanding agrees above plan call for any further problems difficulties or questions. Not available 07/07/2024 14:17:27 2024 2024 The patient has moderate primary osteoarthritis of the right knee joint with significant chondromalacia of the right patella and crepitation. Under sterile conditions I injected the patient's right knee joint in the office with Orthovisc injection number 3. He tolerated the procedure well. We can do this again in 6 months versus cortisone in between we talked about this in detail today he will continue with current conservative measures and call for any further problems difficulties or questions he voiced understanding and agrees with the above plan. Not available 2024 14:12:51 Plan of Treatment Reminders Order Date Submit Date Provider Last Modified By Organization Details Last Modified Time Details Appointments None recorded. Lab None recorded. Referral None recorded. Procedures knee aspiration/ injection (PROC) 2023 024 In-Office Order, Internal Use Only DO Not Attach Compendium DO Not Attach Compendium, Do Not Delete/merge, [id number] 13:56:37 knee aspiration/ injection (PROC) 2023 024 In-Office Order, Internal Use Only DO Not Attach Compendium DO Not Attach Compendium, Do Not Delete/merge, [id number] 14:01:15 injection/a spiration joint/bursa (PROC) - in office procedure, administere d by provider 2023 024 In-Office Order, Internal Use Only DO Not Attach Compendium DO Not Attach Compendium, Do Not Delete/merge, [id number] 4 14:56:27 injection/a spiration joint/bursa (PROC) - in office procedure, administere d by provider 2022 023 [email or web address] In-Office Order, Internal Use Only DO Not Attach Compendium DO Not Attach Compendium, Do Not Delete/merge, [id number] 11:35:36 Surgeries None recorded. Imaging XR, knee 2023 024 [facility] [place], [address], [place], [address], 4 15:35:51 Medication Orders ORTHOVISC 30 mg/2 mL intra-artic ular syringe 2023 024 [facility] #[id number], [address] [place], [place], [id number], 4 16:53:47 ORTHOVISC 30 mg/2 mL intra-artic ular syringe 2023 024 [facility] #[id number], [address] [facility], [place], [place], [id number], 4 14:42:51 ORTHOVISC 30 mg/2 mL intra-artic ular syringe 2023 024 [facility] #[id number], [address] [place], [place], [id number], 4 16:10:57 Kenalog 10 mg/mL suspension for injection 2022 023 [facility] #[id number], [address] [facility], [place], [place], [id number], 4 14:50:22 prednisone 10 mg tablets in a dose pack 2022 023 [facility] #73103, [address], [place], [id number], 4 14:50:44 ropivacaine (PF) 5 mg/mL (0.5 %) injection solution 2022 023 Not available 4 14:50:56 Patient TargetsNo targets recorded. Patient InstructionsNo instructions recorded. Reason for Referral None Reported. Results Created Date Observation Date Name Description Value Unit Range Abnormal Flag Note LastModifiedBy Organization Detail LastModifiedTime 06/23/20 24 XR, knee No observ ation record ed. [facility] [place] [address], [place], [address], 06/23/2024 15:35:50 Result Notes None recorded. Problems Name Problem SNOMED Code Status Onset Date Resolution Date Notes Provider Name and Address Organization Details Recorded Time Chondromal acia of right patella 7489299013350 9108 Active 2021 Not Available [facility] 3 13:30:13 Pain of right knee joint 8431291054584 00 Active 2022 Mary allen, MD - [facility] [employer] 3 11:21:04 Osteoarthr itis of right knee joint 8646946318696 00 Active 2022 RYAN Azar [address] [facility], [facility] [address], [place], [address] , [place] [facility] [employer] 3 12:17:02 Problem Notes None recorded. Procedures Surgical History Date Name Laterality Status Provider Name and Address Organization Details Recorded Time repair of meniscus completed Not Available [facility] 01/23/2023 13:29:48 Imaging Results Imaging Date Name Status LastModified by Organiz ation Details LastModified Time 06/23/2024 XR, knee completed [facility] [place] [address], [place], [id number], 06/23/2024 15:35:50 Procedure Notes None recorded. Medical Equipment None Reported. Allergies No known drug allergies Medications Name Sig Start Date Stop Date Status Note LastModified by Organization Details LastModified Time amoxicillin 500 mg capsule TAKE 1 CAPSULE BY MOUTH TWICE DAILY FOR 7 DAYS 06/23 completed Not Available Not Available Not Available prednisone 10 mg tablet 06/23 completed Not Available Not Available Not Available oxybutynin chloride ER 10 mg tablet,exte nded release 24 hr Take 1 tablet every day by oral route. active Not Available Not Available No t Available Lidocaine Viscous 2 % mucosal solution 06/23 completed Not Available Not Available Not Available prednisone 10 mg tablets in a dose pack Take 1 tab by mouth, 3 times a day for 3 daysTake 1 tab by mouth 2 times a day for 2 daysTake 1 tab by mouth once a day for 1 day 06/23 completed Not Available Not Available Not Available doxazosin 8 mg tablet Take 1 tablet every day by oral route. active Not Available Not Available No t Available Kenalog 10 mg/mL suspension for injection Take 20 mg by injection route. 06/23 completed [facility]: 0003- 0494- 20 Not Available Not Available Not Available prednisone 50 mg tablet TAKE 1 TABLET BY MOUTH DAILY 06/23 completed Not Available Not Available Not Available albuterol sulfate HFA 90 mcg/actuati on aerosol inhaler INHALE 2 PUFFS BY MOUTH FOUR TIMES DAILY 06/23 completed Not Available Not Available Not Available bromphenira mine-pseudo ephedrine-D M 2 mg-30 mg-10 mg/5 mL oral syrup TAKE 10 ML BY MOUTH THREE TIMES DAILY FOR 7 DAYS NEEDED FOR COUGH 06/23 completed Not Available Not Available Not Available ORTHOVISC 30 mg/2 mL intra-artic ular syringe Inject 2 mL every week by intra-art icular route. 2023 active Not Available Not Available Not Avai lable metronidazo le 1 % topical gel APPLY TO RED AREAS ON FACE EVERY DAY 10/02 completed Not Available Not Available Not Available atorvastati n 2021 active Not Available Not Available Not Avai lable ropivacaine (PF) 5 mg/mL (0.5 %) injection solution Take 20 mg by injection route. 06/23 completed [facility] 17941 -[phone]- 01 Not Available Not Available Not Available Vitals Date Recorded Body mass index (BMI) Body height Body weight Provider Name and Address Organization Details Last Updated DateTime 11/13/2022 26.4 kg/m2 175.26 cm 27503.03 g Not Available [facility] 01/23/2023 13:29:57 Date Recorded Body height Body mass index (BMI) Body weight Provider Name and Address Organization Details Last Updated DateTime 09/09/2023 175.26 cm 26.4 kg/m2 19603.03 g Mary Jungmons [email or web address] 09/09/2023 11:19:59 Date Recorded Body height Body mass index (BMI) Body weight Provider Name and Address Organization Details Last Updated DateTime 06/23/2024 175.26 cm 25.8 kg/m2 23318.66 g [email or web address] 06/23/2024 14:49:10 Date Recorded Body height Body mass index (BMI) Body weight Provider Name and Address Organization Details Last Updated DateTime 07/07/2024 175.26 cm 25.8 kg/m2 92008.66 g [facility], [employer] [email or web address] 07/07/2024 13:59:44 Date Recorded Body height Body mass index (BMI) Body weight Provider Name and Address Organization Details Last Updated DateTime 2024 175.26 cm 25.1 kg/m2 68908.7 g [employer], [email or web address] 2024 13:54:54 Social History Question Answer Notes LastModified by Organizat ion Details LastModified Time Tobacco Smoking Status Current Every Day Smoker Not Available [facility] 01/23/2023 13:29:47 What Is Your Level Of Alcohol Consumption? None Information not available 06/23/2024 How Much Tobacco Do You Smoke? 0.5 PPD Information not available 06/23/2024 How Many Years Have You Smoked Tobacco? 2 Information not available 06/23/2024 Sex: Unknown Functional Status None recorded. Mental Status None recorded. Family History Nothing Reported. Medical History Condition Response URINARY/BLADDER/KIDNEY PROBLEMS Y Past Encounters Encounter ID Performer Location Encounter Start Date Encounter Closed Date Diagnosis/Indication Diagnosis SNOMED-CT Code Diagnosis ICD10 Code Diagnosis Note [id number] [facility] [place] [address] [place] [address] 10/02/2022 00:00:00 10/02/2022 14:27:11 [id number] [facility] [place] [address] [place] [address] 11/13/2022 00:00:00 11/13/2022 14:29:52 [id number] RYAN Azar [facility] [place] [address] [place] [address] 09/09/2023 11:15:42 09/09/2023 11:37:47 Chondromalacia of right patella 8084634503 1769786 M22.41 Pain of ri ght knee joint 3669939072 04157 M25.561 Osteoarthr itis of right knee joint 1407524086 89099 M17.11 [id number] RYAN Azar [facility] [place] [address] [place] [address] 06/23/2024 14:36:04 06/23/2024 15:17:42 Chondromalacia of right patella 8524732528 1923806 M22.41 Osteoarthr itis of right knee joint 6659095663 55739 M17.11 Pain of ri ght knee joint 0185528300 68654 M25.076 [id number] RYAN Azar [facility] [place] [address] [place] [address] 07/07/2024 13:57:15 07/07/2024 14:52:46 Chondromalacia of right patella 1659579457 6089004 M22.41 Osteoarthr itis of right knee joint 3235979223 98010 M17.11 Pain of ri ght knee joint 7768305591 06312 M25.057 [id number] RYAN Azar [facility] [place] [address] [facility] [address] [place] [id number] 2024 13:51:53 2024 14:15:46 Chondromalacia of right patella 9205631632 3741979 M22.41 Osteoarthr itis of right knee joint 7978217784 47089 M17.11 Pain of ri ght knee joint 3524562037 93809 M25.561 Health Concerns Section Related Observation LastModified by Organization Detai ls LastModified Time None Recorded Concern Status LastModified by Organization Details LastModified Time None Recorded Advance Directives Directive None Recorded Payers Encounter Date Sequence Insurance Name Policy Number Policy Riggs Covered Member ID Riggs Member ID Guarantor Name 09/09/2023 1 MEDICARE-ID (MEDICARE) Brent Landaverde [employer]arel[employer] [id number] 1 Brent Landaverde Yarelis 06/23/2024 1 MEDICARE-ID (MEDICARE) Brent Landaverde Yarelis [id number] 1 Brent Landaverde Yarelis 07/07/2024 1 MEDICARE-ID (MEDICARE) Brent Landaverde Yarelis [id number] 1 Brent Landaverde Yarelis 2024 1 MEDICARE-ID (MEDICARE) Brent Antonler [id number] 1 Brent Santoyo Notes Date Note Type Note Provider Name and Address Organization Details Recorded Time 11/13/2022 text/html KneeReported bypatient.Location:r ight; anterior Quality:aching; burning; throbbing Severity:moderate Duration:continuous since onset Timing:chronic; recurrent; intermittent episodes lasting: Context:cannot identify Alleviating Factors:lying down; rest; elevation; stretching Aggravating Factors:twisting; bending/squatting Associated Symptoms:swelling;wa rmth;popping/clickin g Previous PT:helped a little Not Available [facility] 11/13/2022 14:29:52 09/09/2023 text/html The patient is a 68-year-old male who presents with a chronic history of right knee pain. He states recently his knees really started bothering quite a bit he was staying at his daughter's house for a month last month and had to go up and down the stairs quite a bit. He states when he was doing this he started to develop more more knee pain. He was last seen for knee pain about a year ago he had a shot of cortisone at that time and did well until recently. He does have remote history of 2 knee arthroscopies in the for his right knee due to medial meniscal tears. He has likely developed some osteoarthritis particularly the medial compartment his x-rays in the past did not show severe osteoarthritis or anything else obvious. He states he has popping sensation with mechanical irritation particularly medially tenderness here sometimes the throbbing and aching keep him awake at night. He denies any effusion or swelling today no recent injury no erythema heat or other signs of infection. He states he has been taking easy for the past week so today is a little bit better day for him. He comes in today with right knee pain as described. His past medical history was reviewed in detail today with the patient. RYAN Azar [address], [place], [address], [facility] - [facility] [employer] [facility] 09/09/2023 12:21:19 06/23/2024 text/html patient returns we have not seen him for over 9 months. He is complaining of right knee aching pain he states he has lots of popping and cracking behind the kneecap if he is very active this bothers him more. He has particularly problems with going up and down stairs. In the he did have knee arthroscopy x2 for medial meniscal tears. It appears he has developed some osteoarthritis particularly the medial compartment but also shows significant chondromalacia on exam in the patellofemoral articulation and some irregularity and spurring of the patellofemoral joint. He states the mechanical symptoms behind the kneecap concern him this has been present chronically but lately causes more throbbing and aching and keeping him awake at night. He comes in today for evaluation treatment. He had a shot of cortisone 9 months ago states this gave him excellent relief for several months but now his pain is bothering him once again. Denies any new trauma or injury to the knee. New past medical history sheet was reviewed and signed on the intake sheet of today's date drug allergies current medications family social history previous surgical history 10 point review of systems was reviewed and discussed in detail today with the patient. Hugo Loza, [address], [place], [address], [email or web address] 06/23/2024 15:36:25 07/07/2024 text/html Patient returns for Orthovisc injection number 2 right knee. The patient has moderate primary osteoarthritis of the right knee with significant crepitation in the patellofemoral region and has had chronic aching pain particularly squatting kneeling going up and down stairs. He has had a couple of knee arthroscopies in the mid 90s from medial meniscal tears and has developed osteoarthritis over time in the medial compartment as well. Today he denies any effusion or swelling no erythema heat or other signs of infection he is starting to get a little relief from the 1st round. RYAN Azar [address], [place], [address], [email or web address] 07/07/2024 14:17:37 2024 text/html The patient retu rns for Orthovisc injection number 3 right knee. He has moderate primary osteoarthritis with significant crepitation in the patellofemoral region chronic aching pain but is getting much better today he states he has no pain although on his history sheet he had marked 5 on a scale of 1-10. He states the crepitation and popping behind the kneecap or what he is referring to but otherwise he really does not have any pain. He denies any effusion or swelling no erythema heat or other signs of infection he states he likes to walk every morning for exercise he is continuing to do this I have advised him better exercise would be an exercise bike or elliptical machine something low-impact but he would rather walk. He comes in today for the last injection. RYAN Azar [address], [place], [address], [email or web address] 2024 14:13:05
--- OUTSIDE RECORDS SUMMARY | 2025-01-18 09:02 | XMS_ITS | CLINICAL SUMMARY ---
Author Name Krishna Avila Address [address] [place] [address] Phone Organization [facility] Address [address] [place] [address] Phone Care Team Providers Care Client Evaluator Name Role Phone Krishna Avila Unavailable Aury Gutierrez Unavailable [facility] Unavailable [phone] SOCIAL HISTORY Social History Observation Description Dates Observed Sex Male [id number] None recorded VITAL SIGNS BMI Body Mass Index Percentile Date Systolic Diastolic Head Circumference Head Circumference Percentile Height Oxygen Concentration Pulse Pulse Oximeter Respiratory Rate Temperature Weight Baaqxv-kmu-fxwszs Percentile 24.9 56 kg/m 2 Unknown 108 131 mmHg 82 mmHg Unknown Unknown 69 [in_i] Unknown 105 /min 98 % 16 /min 99.7 169 [lb_av] Unknown ALLERGIES AND ADVERSE REACTIONS No [...] active Acute upper respiratory infection, unspecified 2 0163270 active Other specified symptoms and signs involving the circulatory and respiratory systems [id number] active COVID-19 56512236 active Acute cough 93549659 active Other specified symptoms and signs involving the circulatory and respiratory systems 04229953 active Acute upper respiratory infection, unspecified 2 8320583 active Influenza due to unidentifie d influenza virus with other manifestations No date recorded undefined Fever, unspecified 56627662 active Other fatigue 54436652 active Headache, unspecified 06323442 active FAMILY HISTORY ENCOUNTERS Encounter Performer Location E/M Code E/M Label Date Diagnosi s visit [facility] [address] No E/M display label [id number] COVID-19 visit [facility] [address] No E/M display label [id number] Hyperlipidemia visit [facility] [address] No E/M display label [id number] Acute cough visit [facility] [address] No E/M display label [id number] Other specified symptoms and signs involving the circulatory and respiratory systems LAB RESULTS Overall Code Overall Text [Code] Result Type (Code) Result Text Result Value Relevant Reference Range Date Lab Name [facility] Zip Code No overall lab code recorded Covid-19 Antigen Test CARD [60448] 05235-7 Covid-19 Antigen Test CARD Positive Normal = Negative 20231125 08 [facility] [place] [address] [place] [address] 0000 No overall lab code recorded Flu Test (Binax, QuickVue ) [13264] No result type code recorded Flu A Negative Normal = Negative 20231125 08 [facility] [place] [facility] [address] [place] [address] 0000 No overall lab code recorded Flu Test (Binax, QuickVue ) [93513] No result type code recorded Flu B Negative Normal = Negative 20231125 08 [facility] [place] [facility] [address] [place] [address] 0000 No overall lab code recorded Rapid Strep [89365] No result type code recorded Rapid Strep Negative Normal = Negative 20231125 08 [facility] [place] [facility] [address] [place] [address] 0000 No overall lab code recorded Covid-19 Antigen Test CARD [21815] QTY(1) No result type code recorded Covid-19 Antigen Test CARD [12225] QTY(1) No range recorded 20231125 08 [facility] [place] [facility] [address] [place] [address] 0000 No overall lab code recorded Rapid Strep [57755] QTY(1) [Complet ed by: Aury Gutierrez] No result type code recorded Rapid Strep [21792] QTY(1) [Complet ed by: Aury Gutierrez] No range recorded 20231125 08 [facility] [place] [facility] [address] [place] [address] 0000 INSURANCE PROVIDERS (PAYERS) Payer name Policy type / Coverage type Policy ID Covered libertarian ID Insurance type Policy [employer] [id number] ? Primary [facility] [place] PROCEDURE NOTE Date Name Status Summary Text (N otes) 20241002 Covid-19 Antigen Test CARD Completed C ovid-19 Antigen Test CARD [24500] QTY(1) 20241002 Flu Test (Binax, QuickVue) Completed F sergey Test (Binax, QuickVue) [25227] QTY(2) [Completed by: Aury Gutierrez] 20241002 Rapid Strep Completed Rapid Strep [87 880] QTY(1) [Completed by: Aury Gutierrez] 20241002 59698 Completed Flu Test (Binax , QuickVue) None recorded None recorded None recorded None recorde d 20241002 Covid-19 Antigen Test CARD Completed C ovid-19 Antigen Test CARD [50186] QTY(1) 20241002 Flu Test (Binax, QuickVue) Completed F sergey Test (Binax, QuickVue) [56293] QTY(2) [Completed by: Aury Gutierrez] 20241002 Rapid Strep Completed Rapid Strep [87 880] QTY(1) [Completed by: Aury Gutierrez] PROCEDURES Date Name Status Summary Text (N otes) 20241002 Covid-19 Antigen Test CARD Completed C ovid-19 Antigen Test CARD [72288] QTY(1) 20241002 Flu Test (Binax, QuickVue) Completed F sergey Test (Binax, QuickVue) [74216] QTY(2) [Completed by: Aury Gutierrez] 20241002 Rapid Strep Completed Rapid Strep [87 880] QTY(1) [Completed by: Aury Gutierrez] 20241002 56120 Completed Flu Test (Binax , QuickVue) None recorded None recorded None recorded None recorde d 20241002 Covid-19 Antigen Test CARD Completed C ovid-19 Antigen Test CARD [01289] QTY(1) 20241002 Flu Test (Binax, QuickVue) Completed F sergey Test (Binax, QuickVue) [74285] QTY(2) [Completed by: Aury Gutierrez] 20241002 Rapid Strep Completed Rapid Strep [87 880] QTY(1) [Completed by: Aury Gutierrez] ASSESSMENTS No information recorded LABORATORY REPORT NARRATIVE [...] day PRN - Cough for 7 days 21 syrup 3 times per day oral 7 days active 2-30-10 mg/5 mL Tamiflu Take 1 Capsule (oral) 1 time per day for 10 days 21 capsu le 1 time per day oral [...] Code Text Date Observatio n Data Instruction [id number] Patient Education 2024-10-02 The nivia leiva was stable enough for home care and placed in home self-isolation while awaiting the laboratory results. The patient was also given handouts containing information about home self-isolation regarding both the patient and household members. Instructed the patient to remain on home self-isolation until contacted with the laboratory results and further guidance is given. Patient verbalized understanding. Instruction [id number] Patient Education 2024-10-02 You we re tested today for COVID-19. Per CDC recommendations, your symptoms are stable enough, at this time, to receive care at home. Please use a space in your home that is not shared with other family members. Advise your family to wash their hands for a minimum of 20 seconds, use gloves and a face mask as a precaution, if available. Please remain home until you receive your test results. If your symptoms worsen, please call the ER and let them know you have been quarantined, awaiting results, and that you will be presenting to their facility. Instruction [id number] Patient Education 2024-10-02 If you r condition worsens we recommend [...] for follow up care as instructed. Instruction [id number] Patient Education 2024-10-02 Avoid Caffeine, Alcohol, Peppermint, and Chocolate. Keep Head of bed elevated 4-6 inches. Instruction [id number] Patient Education 2024-10-02 Please use over the counter cough remedies, discuss the best options with your pharmacist. Instruction [id number] Patient Education 2024-10-02 Tyleno l every 4-6 hours as needed and/or Ibuprofen every 6-8 hours as needed, over the counter for pain or fever. Instruction [id number] Patient Education 2024-10-02 It is possible that dehydration could be the cause of or aggravate your condition. Both food and water are important to maintain proper hydration status. Signs of dehydration include but are not limited to; feeling thirsty, urinating less often, dark yellow urine, dry mouth, feeling tired, and feeling dizzy or lightheaded. Instruction [id number] Patient Education 2024-10-02 Paxlov id Antiviral therapy was recommended today, as one or more of the following criteria were met; *Age >65 *Age >50 without vaccination *Immunocompromised *Multiple risk factors Instruction [id number] Patient Education 2024-10-02 You te sted positive for COVID-19. You have been given detailed information on follow-up and self-care. If you have worsening symptoms please call 911 and inform personnel that you were COVID-19 positive. Instruction [id number] Patient Education 2024-10-02 Your c hronic illness appears to be exacerbated and therefore needs to be addressed as it adds complexity for the condition you have be diagnosed with. Instruction [id number] Patient Education 2024-10-02 You we re prescribed Paxlovid for your Covid diagnosis. This medication interacts with your high cholesterol medication. As we discussed, stop your cholesterol medication for the next 10 days. Observation 88517-6 Covid-19 Antigen Test CARD None specified No Observation data available for this record Observation Flu Test (Binax, QuickVue) None specified No Observation data available for this record Observation Rapid Strep None specified No Obser vation data available for this record * Visit Diagnosis: COVID-19 (U07.1) Hyperlipidemia (E78.5) Acute cough (R05.1) Other specified symptoms and signs involving the circulatory and respiratory systems (R09.89) * Referrals: First Name Last Name NPI# Reason None recorded None recorded None recorded None recorde d HISTORY AND PHYSICAL NOTE * Reason for Visit: Patient Reports: Cough [Onset: 3 Day(s)]; Sore throat [Onset: 3 Day(s)]; Runny nose [Onset: 2 Day(s)]. Dictation: 69 y/o M presents with sore throat, cough, and runny nose. Pt stated visiting his four grandsons recently and they were all under the weather, coughing, sneezing. Pt stated taking OTC cough medicine but not feeling any improvement in his symptoms. Pt is requesting to get tested for COVID, Flu, and Strep. Dictation: 69 y/o M presents with sore throat, cough, and runny nose. Pt stated visiting his four grandsons recently and they were all under the weather, coughing, sneezing. Pt stated taking OTC cough medicine but not feeling any improvement in his symptoms. Pt is requesting to get tested for COVID, Flu, and Strep. * Family History: * * Allergies: No known allergies * Problems: Names Dates Status Hyperlipidemia No date recorded active Acute upper respiratory infection, unspecified 2 0678434 active Other specified symptoms and signs involving the circulatory and respiratory systems 20231004 active COVID-19 47262137 active Acute cough 20241006 active Other specified symptoms and signs involving the circulatory and respiratory systems 20241006 active Acute upper respiratory infection, unspecified 2 2501025 active Influenza due to unidentifie d influenza virus with other manifestations No date recorded undefined Fever, unspecified 20241218 active Other fatigue 29618397 active Headache, unspecified 20241218 active * Vitals: BMI Body Mass Index Percentile Date Systolic Diastolic Head Circumference Head Circumference Percentile Height Oxygen Concentration Pulse Pulse Oximeter Respiratory Rate Temperature Weight Imapps-som-txtrjh Percentile 24.9 56 kg/m 2 Unknown 98739 108 131 mmHg 82 mmHg Unknown Unknown 69 [in_i] Unknown 105 /min 98 % 16 /min 99.7 169 [lb_av] Unknown * Review of Systems: All non-documented systems reviewed and considered negative. * *Systemic* Patient Denies* Dizziness * Fever * Allergy/Immun* Patient Denies* Allergy symptoms * ENT/Mouth* Patient Reports* Sore throat (Onset: 3 Day(s)) * Eyes* Patient Denies* Vision changes * GI* Patient Denies* Nausea * * Patient Denies* Decreased urinary output * Reinaldo/Lymph* Patient Denies* Lymphadenopthy (Swollen Lymph Nodes) * Musc/Skel* Patient Denies* Muscle weakness * Swelling * Respiratory* Patient Reports* Cough (Onset: 3 Day(s)) * Skin/Breast* Patient Denies* Rash * Exam: * General : Normal* Normal : Well developed,No acute distress * Skin, Hair, Nails : Normal* Normal : No rashes noted,No Abrasions observed * Head : Normal* Normal : Normocephalic,Face is grossly normal,No evidence of trauma * Eyes : Normal* Normal : Sclera normal,Lids and lashes are normal,Normal conjunctiva * Ears : Normal* Normal : Normal TMs,Normal External canal,Normal Auditory canal * Nose : Normal* Normal : Nasal discharge absent,Normal appearing nose * Oral pharynx : Abnormal* Normal : Lips appear normal,Normal tongue,Normal gingiva,Normal appearing tonsils,Normal soft palate,Normal oral mucosa,Normal dentitia,Normal voice * Abnormal : Posterior pharynx is erythematous,Posterior nasal drainage noted in exam * Neck : Normal* Normal : No deformity of neck * Lymph Nodes : Normal* Normal : Lymph nodes are grossly unremarkable upon exam * Chest/Lungs : Normal* Normal : No signs of respiratory distress,Normal and symmetrical appearing chest on exam * Cardiac : Normal* Normal : Normal heart rate noted,Peripheral edema absent * Neurological : Normal* Normal : Gross motor coordination intact * Musculoskeletal : Normal* Normal : Normal Gait,Normal Posture * Plan of Care (advice, pending tests, pending diagnostic tests): Treatment Type Code Text Date Observatio n Data Instruction [id number] Patient Education 2024-10-02 The pa tient was stable enough for home care and placed in home self-isolation while awaiting the laboratory results. The patient was also given handouts containing information about home self-isolation regarding both the patient and household members. Instructed the patient to remain on home self-isolation until contacted with the laboratory results and further guidance is given. Patient verbalized understanding. Instruction [id number] Patient Education 2024-10-02 You we re tested today for COVID-19. Per CDC recommendations, your symptoms are stable enough, at this time, to receive care at home. Please use a space in your home that is not shared with other family members. Advise your family to wash their hands for a minimum of 20 seconds, use gloves and a face mask as a precaution, if available. Please remain home until you receive your test results. If your symptoms worsen, please call the ER and let them know you have been quarantined, awaiting results, and that you will be presenting to their facility. Instruction [id number] Patient Education 2024-10-02 If you r condition worsens we recommend [...] for follow up care as instructed. Instruction [id number] Patient Education 2024-10-02 Avoid Caffeine, Alcohol, Peppermint, and Chocolate. Keep Head of bed elevated 4-6 inches. Instruction [id number] Patient Education 2024-10-02 Please use over the counter cough remedies, discuss the best options with your pharmacist. Instruction [id number] Patient Education 2024-10-02 Tyleno l every 4-6 hours as needed and/or Ibuprofen every 6-8 hours as needed, over the counter for pain or fever. Instruction [id number] Patient Education 2024-10-02 It is possible that dehydration could be the cause of or aggravate your condition. Both food and water are important to maintain proper hydration status. Signs of dehydration include but are not limited to; feeling thirsty, urinating less often, dark yellow urine, dry mouth, feeling tired, and feeling dizzy or lightheaded. Instruction [id number] Patient Education 2024-10-02 Paxlov id Antiviral therapy was recommended today, as one or more of the following criteria were met; *Age >65 *Age >50 without vaccination *Immunocompromised *Multiple risk factors Instruction [id number] Patient Education 2024-10-02 You te sted positive for COVID-19. You have been given detailed information on follow-up and self-care. If you have worsening symptoms please call 911 and inform personnel that you were COVID-19 positive. Instruction [id number] Patient Education 2024-10-02 Your c hronic illness appears to be exacerbated and therefore needs to be addressed as it adds complexity for the condition you have be diagnosed with. Instruction [id number] Patient Education 2024-10-02 You we re prescribed Paxlovid for your Covid diagnosis. This medication interacts with your high cholesterol medication. As we discussed, stop your cholesterol medication for the next 10 days. Observation 02387-4 Covid-19 Antigen Test CARD None specified No Observation data available for this record Observation Flu Test (Binax, QuickVue) None specified No Observation data available for this record Observation Rapid Strep None specified No Obser vation data available for this record * Lab Results: Overall Code Overall Text [Code] Result Type (Code) Result Text Result Value Relevant Reference Range Date Lab Name [facility] Zip Code No overall lab code recorded Covid-19 Antigen Test CARD [11322] 19995-8 Covid-19 Antigen Test CARD Positive Normal = Negative 20231125 08 [facility] [place] [facility] [address] [place] [address] 0000 No overall lab code recorded Flu Test (Binax, QuickVue ) [23301] No result type code recorded Flu A Negative Normal = Negative 20231125 08 [facility] [place] [facility] [address] [place] [address] 0000 No overall lab code recorded Flu Test (Binax, QuickVue ) [98234] No result type code recorded Flu B Negative Normal = Negative 20231125 08 [facility] [place] [facility] [address] [place] [address] 0000 No overall lab code recorded Rapid Strep [93375] No result type code recorded Rapid Strep Negative Normal = Negative 20231125 08 [facility] [place] [facility] [address] [place] [address] 0000 No overall lab code recorded Covid-19 Antigen Test CARD [22456] QTY(1) No result type code recorded Covid-19 Antigen Test CARD [03782] QTY(1) No range recorded 20231125 08 [facility] [place] [address] [place] [address] 0000 No overall lab code recorded Rapid Strep [22831] QTY(1) [Complet ed by: uAry Gutierrez] No result type code recorded Rapid Strep [90583] QTY(1) [Complet ed by: Aury Gutierrez] No range recorded 20231125 08 [facility] [place] [facility] [address] [place] [address] 0000 * Radiology Results: Overall Code Overall Text [Code] Result Type (Code) Result Text Result Value Relevant Reference Range Date Lab Name [facility] Zip Code None recorded None recorded None recorded None recorded None recorded None recorded None recor ded None recor ded None recorde d None recor ded None record ed None recor ded * Visit Diagnosis: COVID-19 (U07.1) Hyperlipidemia (E78.5) Acute cough (R05.1) Other specified symptoms and signs involving the circulatory and respiratory systems (R09.89) * Referrals: First Name Last Name NPI# Reason None recorded None recorded None recorded None recorde d PLAN OF TREATMENT Treatment Type Code Text Date Instructebonie dominic Data Instruction [id number] Patient Education 2024-10-02 The pa tient was stable enough for home care and placed in home self-isolation while awaiting the laboratory results. The patient was also given handouts containing information about home self-isolation regarding both the patient and household members. Instructed the patient to remain on home self-isolation until contacted with the laboratory results and further guidance is given. Patient verbalized understanding. Instruction [id number] Patient Education 2024-10-02 You we re tested today for COVID-19. Per CDC recommendations, your symptoms are stable enough, at this time, to receive care at home. Please use a space in your home that is not shared with other family members. Advise your family to wash their hands for a minimum of 20 seconds, use gloves and a face mask as a precaution, if available. Please remain home until you receive your test results. If your symptoms worsen, please call the ER and let them know you have been quarantined, awaiting results, and that you will be presenting to their facility. Instruction [id number] Patient Education 2024-10-02 If you r condition worsens we recommend [...] for follow up care as instructed. Instruction [id number] Patient Education 2024-10-02 Avoid Caffeine, Alcohol, Peppermint, and Chocolate. Keep Head of bed elevated 4-6 inches. Instruction [id number] Patient Education 2024-10-02 Please use over the counter cough remedies, discuss the best options with your pharmacist. Instruction [id number] Patient Education 2024-10-02 Tyleno l every 4-6 hours as needed and/or Ibuprofen every 6-8 hours as needed, over the counter for pain or fever. Instruction [id number] Patient Education 2024-10-02 It is possible that dehydration could be the cause of or aggravate your condition. Both food and water are important to maintain proper hydration status. Signs of dehydration include but are not limited to; feeling thirsty, urinating less often, dark yellow urine, dry mouth, feeling tired, and feeling dizzy or lightheaded. Instruction [id number] Patient Education 2024-10-02 Paxlov id Antiviral therapy was recommended today, as one or more of the following criteria were met; *Age >65 *Age >50 without vaccination *Immunocompromised *Multiple risk factors Instruction [id number] Patient Education 2024-10-02 You te sted positive for COVID-19. You have been given detailed information on follow-up and self-care. If you have worsening symptoms please call 911 and inform personnel that you were COVID-19 positive. Instruction [id number] Patient Education 2024-10-02 Your c hronic illness appears to be exacerbated and therefore needs to be addressed as it adds complexity for the condition you have be diagnosed with. Instruction [id number] Patient Education 2024-10-02 You we re prescribed Paxlovid for your Covid diagnosis. This medication interacts with your high cholesterol medication. As we discussed, stop your cholesterol medication for the next 10 days. Observation 75752-5 Covid-19 Antigen Test CARD None specified No instruction data available for this record Observation Flu Test (Binax, QuickVue) None specified No instruction data available for this record Observation Rapid Strep None specified No instr uction data available for this record CHIEF COMPLAINT AND REASON FOR VISIT NARRATIVE Patient Reports: Cough [Onset: 3 Day(s)]; Sore throat [Onset: 3 Day(s)]; Runny nose [Onset: 2 Day(s)]. Dictation: 69 y/o M presents with sore throat, cough, and runny nose. Pt stated visiting his four grandsons recently and they were all under the weather, coughing, sneezing. Pt stated taking OTC cough medicine but not feeling any improvement in his symptoms. Pt is requesting to get tested for COVID, Flu, and Strep. Dictation: 69 y/o M presents with sore throat, cough, and runny nose. Pt stated visiting his four grandsons recently and they were all under the weather, coughing, sneezing. Pt stated taking OTC cough medicine but not feeling any improvement in his symptoms. Pt is requesting to get tested for COVID, Flu, and Strep.
--- OUTSIDE RECORDS SUMMARY | 2025-01-18 09:02 | XMS_ITS | Clinical Summary ---
Author Organization [facility] [employer] Address [address] [place] [address] Care Team Providers Care Engineering Research Manager Name Role Phone Unavailable Primary Care Provider Unavailabl e Source Comments [facility] [employer]non-owned Affiliates and Associated Physician Practices is amultiple site organization consisting of ambulatory clinics and hospital sitesin [place], [place], [place] and [place]. This disclosure is being madepursuant to the Care Everywhere program and may not contain all information available regarding this patient. Last updated 18.[facility] Allergies No known active allergies Medications * [...] 84 09/20/2017 10:57 AM CDT Temperature 36.6 C (97.9 F) 09/20/2017 10:57 AM CDT Respiratory Rate 16 09/20/2017 10:57 AM CDT [...] SCREENING 1955 LIPID TESTING 1955 MEDICARE AWV 12 MONTHS 1955 HEPATITIS C SCREENING 07/09/1973 DTAP/TDAP/TD VACCINES (1 - Tdap) 1974 PNEUMOCOCCAL VACCINE 50+ (1 of 1 - PCV) 2005 ZOSTER VACCINE (1 of 2) 2005 AAA SCREENING 2020 COVID-19 VACCINE ( - 2023-2 5 season) 2024 INFLUENZA VACCINE [...]
--- OUTSIDE RECORDS SUMMARY | 2025-01-18 09:02 | XMS_ITS | Continuity of Care Document ---
Author Organization [facility] Address [address] [place] [address] Phone Care Team Providers Care Shear Helper Name Role Phone Administrative, Provider Unavailable Unavail able Procedures Procedure Date Work/Medical Disability Exam RJR 2011 Advance Directives Directive Yes / No Effective Date File Name No Information Encounters Encounter Description Practice Location Reason(s) For Visit Diagnoses Date Provider Providers Copied on Encounter [facility], [address] [place], [place] [address]uite [address] [place] [address], [id number], tel:[phone] [facility] [employer] [facility] DEGEN 2 Administrative Provider. [address] [place] [address], [place] [address], [place], [place], [address] [place] [address], . tel:[phone] Referring Provider: Markell Aceves, [address] [place] [address] [address] [facility], [place], [address] . tel:[phone] Family History Family Member Type Diagnosis Age At Onset No Information Payers Payer name Insurance type Covered alliance party ID Authorkarlaa titameka(s) [employer] [facility] [id number] Social History Type Description Quantity Date [...]
--- OUTSIDE RECORDS SUMMARY | 2025-01-18 09:02 | XMS_ITS | Clinical Summary ---
Author Organization [facility] Address [address] [place] [address] Care Team Providers Care Construction Project Administrator Name Role Phone Unavailable Primary Care Provider [...]
--- OUTSIDE RECORDS SUMMARY | 2025-01-18 09:02 | XMS_ITS | CLINICAL SUMMARY ---
Author Name Krishna Avila Address [address] [place] [address] Phone Organization [facility] Address [address] [place] [address] Phone Care Team Providers Care Cistern Room Operator Name Role Phone Krishna Avila Unavailable [phone] Essence Floreskarinnataly Unavailable [facility] Unavailable [phone] SOCIAL HISTORY Social History Observation Description Dates Observed Sex Male 10201740 None recorded VITAL SIGNS BMI Body Mass Index Percentile Date Systolic Diastolic Head Circumference Head Circumference Percentile Height Oxygen Concentration Pulse Pulse Oximeter Respiratory Rate Temperature Weight Zuibec-qaa-ubcbla Percentile 23.8 71 kg/m 2 Unknown 87225 121 122 mmHg 77 mmHg Unknown Unknown 68 [in_i] Unknown 122 /min 96 % 19 /min 101 157 [lb_av] Unknown ALLERGIES AND ADVERSE REACTIONS No [...] active Acute upper respiratory infection, unspecified 2 1334951 active Other specified symptoms and signs involving the circulatory and respiratory systems 50135810 active COVID-19 21701804 active Acute cough 96771310 active Other specified symptoms and signs involving the circulatory and respiratory systems 53946419 active Acute upper respiratory infection, unspecified 2 5373621 active Influenza due to unidentifie d influenza virus with other manifestations No date recorded undefined Fever, unspecified 84504033 active Other fatigue 94065051 active Headache, unspecified 85179960 active FAMILY HISTORY ENCOUNTERS Encounter Performer Location E/M Code E/M Label Date Diagnosi s visit [facility] [address] No E/M display label 17842800 Acute upper respiratory infection, unspecified visit [facility] [address] No E/M display label 14327489 Influenza due to unidentified influenza virus with other manifestations visit [facility] [address] No E/M display label 70231650 Fever, unspecified visit [facility] [address] No E/M display label 92860290 Other fatigue visit Krishna Avila [facility] [address] No E/M display label 17229792 Headache, unspecified LAB RESULTS Overall Code Overall Text [Code] Result Type (Code) Result Text Result Value Relevant Reference Range Date Lab Name [facility] Zip Code No overall lab code recorded Covid-19 Antigen Test CARD [11519] 78970-5 Covid-19 Antigen Test CARD Negative Normal = Negative 362064 [facility] [place] [address] [place] [address] No overall lab code recorded Flu Test ([facility], [facility] ) [19524] No result type code recorded Flu A Negative Normal = Negative 054192 [facility] [place] [facility] [address] [place] [address] No overall lab code recorded Flu Test (Binax, [facility] ) [47686] No result type code recorded Flu B Negative Normal = Negative 488553 [facility] [place] [facility] [address] [place] [address] 0000 No overall lab code recorded Rapid Strep [54503] No result type code recorded Rapid Strep Negative Normal = Negative 247865 [facility] [place] [facility] [address] [place] [address] 0000 No overall lab code recorded Covid-19 Antigen Test CARD [85624] QTY(1) No result type code recorded Covid-19 Antigen Test CARD [87323] QTY(1) No range recorded 887150 [facility] [place] [address] [place] [address] No overall lab code recorded Rapid Strep [83463] QTY(1) [Complet ed by: Naima Flores] No result type code recorded Rapid Strep [83980] QTY(1) [Complet ed by: Naima Flores] No range recorded 443172 [facility] [place] [address] [place] [address] INSURANCE PROVIDERS (PAYERS) Payer name Policy type / Coverage type Policy ID Covered libertarian ID Insurance type Policy [employer] Bilna. [id number] ? Primary Brent Marsh PROCEDURE NOTE Date Name Status Summary Text (N otes) [id number] Covid-19 Antigen Test CARD Completed C ovid-19 Antigen Test CARD [29375] QTY(1) 87757930 Flu Test (Binax, [facility]) Completed F sergey Test (Binax, [facility]) [80110] QTY(2) [Completed by: Naima Flores] 23200435 Rapid Strep Completed Rapid Strep [87 880] QTY(1) [Completed by: Naima Flores] [id number] 54558 Completed Flu Test (Binax , [facility]) None recorded None recorded None recorded None recorde d [id number] Covid-19 Antigen Test CARD Completed C ovid-19 Antigen Test CARD [17083] QTY(1) 69994527 Flu Test (Binax, [facility]) Completed F sergey Test (Binax, QuickVue) [67282] QTY(2) [Completed by: Naima Flores] 47979849 Rapid Strep Completed Rapid Strep [87 880] QTY(1) [Completed by: Naima Flores] PROCEDURES Date Name Status Summary Text (N otes) 09016559 Covid-19 Antigen Test CARD Completed C ovid-19 Antigen Test CARD [80235] QTY(1) 59303270 Flu Test (Binax, QuickVue) Completed F sergey Test (Binax, QuickVue) [20826] QTY(2) [Completed by: Naima Flores] 89162584 Rapid Strep Completed Rapid Strep [87 880] QTY(1) [Completed by: Naima Flores] 36236133 37261 Completed Flu Test (Binax , QuickVue) None recorded None recorded None recorded None recorde d [id number] Covid-19 Antigen Test CARD Completed C ovid-19 Antigen Test CARD [21973] QTY(1) 16506956 Flu Test (Binax, QuickVue) Completed F sergey Test (Binax, QuickVue) [66315] QTY(2) [Completed by: Naima Flores] 20416916 Rapid Strep Completed Rapid Strep [87 880] QTY(1) [Completed by: Naima Flores] ASSESSMENTS No information recorded LABORATORY REPORT NARRATIVE [...] Code Text Date Observatio n Data Instruction [id number] Patient Education 2024-12-15 Recomm end follow up with PCP in 7-10 days if still not better. Instruction [id number] Patient Education 2024-12-15 You ar e currently suffering from an [...] counter medication options with your pharmacist. Instruction [id number] Patient Education 2024-12-15 Your t est for COVID-19 was negative today. You have been given education sheets with detailed information on self and follow up care. If you have worsening symptoms, please call 911. Instruction [id number] Patient Education 2024-12-15 Nasal saline rinse/spray 3-4 times per day Instruction [id number] Patient Education 2024-12-15 If you r condition worsens we recommend [...] for follow up care as instructed. Instruction [id number] Patient Education 2024-12-15 Please use over the counter cough remedies, discuss the best options with your pharmacist. Observation 66451-4 Covid-19 Antigen Test CARD None specified No Observation data available for this record Observation Flu Test (Binax, QuickVue) None specified No Observation data available for this record Observation Rapid Strep None specified No Obser vation data available for this record * Visit Diagnosis: Acute upper respiratory infection, unspecified (J06.9) Influenza due to unidentified influenza virus with other manifestations (J11.89) Fever, unspecified (R50.9) Other fatigue (R53.83) Headache, unspecified (R51.9) * Referrals: First Name Last Name NPI# Reason None recorded None recorded None recorded None recorde d HISTORY AND PHYSICAL NOTE * Reason for Visit: Patient Reports: Chills; Cough [Free text: 69 yo m patient presents with chills, cough, congestion,fever, fatigue and headache onset lastnight, pt states him and his grandson both have the same symptoms. Pt states he took tylenol but it didn't help.]; Congestion; Fever; Fatigue; Headache. * Family History: * * Allergies: No known allergies * Problems: Names Dates Status Hyperlipidemia No date recorded active Acute upper respiratory infection, unspecified 2 2301204 active Other specified symptoms and signs involving the circulatory and respiratory systems 20231004 active COVID-19 11724931 active Acute cough 20241006 active Other specified symptoms and signs involving the circulatory and respiratory systems 20241006 active Acute upper respiratory infection, unspecified 2 2501025 active Influenza due to unidentifie d influenza virus with other manifestations No date recorded undefined Fever, unspecified 20241218 active Other fatigue 48894110 active Headache, unspecified 20241218 active * Vitals: BMI Body Mass Index Percentile Date Systolic Diastolic Head Circumference Head Circumference Percentile Height Oxygen Concentration Pulse Pulse Oximeter Respiratory Rate Temperature Weight Lehxsi-qri-ahojts Percentile 23.8 71 kg/m 2 Unknown 91611 121 122 mmHg 77 mmHg Unknown Unknown 68 [in_i] Unknown 122 /min 96 % 19 /min 101 157 [lb_av] Unknown * Review of Systems: All non-documented systems reviewed and considered negative. * *Systemic* Patient Reports* Chills * Patient Denies* Dizziness * Patient Reports* Fatigue * Fever * Headache * Allergy/Immun* Patient Denies* Allergy symptoms * ENT/Mouth* Patient Denies* Sore throat * Eyes* Patient Denies* Vision changes * GI* Patient Denies* Nausea * * Patient Denies* Decreased urinary output * Reinaldo/Lymph* Patient Denies* Lymphadenopthy (Swollen Lymph Nodes) * Musc/Skel* Patient Denies* Muscle weakness * Swelling * Respiratory* Patient Reports* Congestion * Cough (Free text: 69 yo m patient presents with chills, cough, congestion, fever, fatigue and headache onset lastnight, pt states him and his grandson both have the same symptoms. Pt states he took tylenol but it didn't help.) * Skin/Breast* Patient Denies* Rash * Exam: * General : Normal* Normal : Well developed,No acute distress * Skin, Hair, Nails : Normal* Normal : No rashes noted,No Abrasions observed * Head : Normal* Normal : Normocephalic,Non-tender right frontal sinus,Non- tender left frontal sinus,Non-tender nasal bridge,Non-tender right maxillary sinus,Non-tender left maxillary sinus,No evidence of trauma * Eyes : Normal* Normal : Sclera normal,Lids and lashes are normal,Normal conjunctiva * Ears : Normal* Normal : Normal TMs,Normal External canal,Normal Auditory canal * Nose : Abnormal* Normal : Normal appearing nose * Abnormal : Congested nasal mucosa both nasal passages noted,Small amount clear nasal drainage notedboth nostrils * Oral pharynx : Abnormal* Normal : Lips appear normal,Normal tongue,Normal gingiva,Normal appearing tonsils,Normal soft palate,Normal oral mucosa,Normal dentitia,Normal voice * Abnormal : Posterior pharynx is erythematous,Posterior nasal drainage noted in exam * Neck : Normal* Normal : No deformity of neck,Neck is supple * Lymph Nodes : Normal* Normal : No cervical lymphadenopathy noted on exam,Submental lymph nodes normal on exam,Submandibular lymph nodes normal on exam,Supraclavicular nodes normal on exam,No preauricular nodes enlarged on exam,No postauricular nodes enlarged on exam * Chest/Lungs : Normal* Normal : No signs of respiratory distress,Normal and symmetrical appearing chest on exam * Cardiac : Normal* Normal : Normal heart rate noted,Peripheral edema absent * Neurological : Normal* Normal : Patient is alert and attentive,Gross motor coordination intact * Musculoskeletal : Normal* Normal : Normal Gait,Normal Posture * Plan of Care (advice, pending tests, pending diagnostic tests): Treatment Type Code Text Date Observatio n Data Instruction [id number] Patient Education 2024-12-15 Recomm end follow up with PCP in 7-10 days if still not better. Instruction [id number] Patient Education 2024-12-15 You ar e currently suffering from an [...] counter medication options with your pharmacist. Instruction [id number] Patient Education 2024-12-15 Your t est for COVID-19 was negative today. You have been given education sheets with detailed information on self and follow up care. If you have worsening symptoms, please call 911. Instruction [id number] Patient Education 2024-12-15 Nasal saline rinse/spray 3-4 times per day Instruction [id number] Patient Education 2024-12-15 If you r condition worsens we recommend [...] for follow up care as instructed. Instruction [id number] Patient Education 2024-12-15 Please use over the counter cough remedies, discuss the best options with your pharmacist. Observation 01055-9 Covid-19 Antigen Test CARD None specified No Observation data available for this record Observation Flu Test (Binax, [facility]Vue) None specified No Observation data available for this record Observation Rapid Strep None specified No Obser vation data available for this record * Lab Results: Overall Code Overall Text [Code] Result Type (Code) Result Text Result Value Relevant Reference Range Date Lab Name [facility] Zip [facility] No overall lab code recorded Covid-19 Antigen Test CARD [80744] 96145-5 Covid-19 Antigen Test CARD Negative Normal = Negative 475511 [facility] [place] [address] [place] [address] No overall lab code recorded Flu Test (Binax, QuickVue ) [26215] No result type code recorded Flu A Negative Normal = Negative 898082 [facility] [place] [address] [place] [address] No overall lab code recorded Flu Test (Binax, QuickVue ) [55970] No result type code recorded Flu B Negative Normal = Negative 578585 [facility] [place] [address] [place] [address] No overall lab code recorded Rapid Strep [43117] No result type code recorded Rapid Strep Negative Normal = Negative 919684 [facility] [place] [address] [place] [address] No overall lab code recorded Covid-19 Antigen Test CARD [02370] QTY(1) No result type code recorded Covid-19 Antigen Test CARD [29099] QTY(1) No range recorded 866354 [facility] [place] [address] [place] [address] No overall lab code recorded Rapid Strep [84573] QTY(1) [Complet ed by: Naima Flores] No result type code recorded Rapid Strep [15312] QTY(1) [Complet ed by: Naima Flores] No range recorded 846241 [facility] [place] [address] [place] [address] * Radiology Results: Overall Code Overall Text [Code] Result Type (Code) Result Text Result Value Relevant Reference Range Date Lab Name [facility] Zip Code None recorded None recorded None recorded None recorded None recorded None recorded None recor ded None recor ded None recorde d None recor ded None record ed None recor ded * Visit Diagnosis: Acute upper respiratory infection, unspecified (J06.9) Influenza due to unidentified influenza virus with other manifestations (J11.89) Fever, unspecified (R50.9) Other fatigue (R53.83) Headache, unspecified (R51.9) * Referrals: First Name Last Name NPI# Reason None recorded None recorded None recorded None recorde d PLAN OF TREATMENT Treatment Type Code Text Date Instructio n Data Instruction [id number] Patient Education 2024-12-15 Recomm end follow up with PCP in 7-10 days if still not better. Instruction [id number] Patient Education 2024-12-15 You ar e currently suffering from an [...] counter medication options with your pharmacist. Instruction [id number] Patient Education 2024-12-15 Your t est for COVID-19 was negative today. You have been given education sheets with detailed information on self and follow up care. If you have worsening symptoms, please call 911. Instruction [id number] Patient Education 2024-12-15 Nasal saline rinse/spray 3-4 times per day Instruction [id number] Patient Education 2024-12-15 If you r condition worsens we recommend [...] for follow up care as instructed. Instruction [id number] Patient Education 2024-12-15 Please use over the counter cough remedies, discuss the best options with your pharmacist. Observation 33480-9 Covid-19 Antigen Test CARD None specified No instruction data available for this record Observation Flu Test (Binax, QuickVue) None specified No instruction data available for this record Observation Rapid Strep None specified No instr uction data available for this record CHIEF COMPLAINT AND REASON FOR VISIT NARRATIVE Patient Reports: Chills; Cough [Free text: 69 yo m patient presents with chills, cough, congestion,fever, fatigue and headache onset lastnight, pt states him and his grandson both have the same symptoms. Pt states he took tylenol but it didn't help.]; Congestion; Fever; Fatigue; Headache.
--- OUTSIDE RECORDS SUMMARY | 2025-01-18 09:02 | XMS_ITS | Patient Health Summary ---
Author Organization [facility] Address [address] [place] [address] Care Team Providers Care Customer Service Advocate Name Role Phone Unavailable Primary Care Provider Unavailabl e Note from [facility],non-owned Affiliates and Associated Physician Practices is amultiple site organization consisting of ambulatory clinics and hospital sitesin [place], [place], [place] and [place]. This disclosure is being madepursuant to the Care Everywhere program and may not contain all information available regarding this patient. Last updated 18.[facility] Allergies No known active allergies Medications * [...]
--- OUTSIDE RECORDS SUMMARY | 2025-01-18 09:02 | XMS_ITS | Referral Summary ---
Author Organization [facility] Address [address] [place] [address] Care Team Providers Care Geospatial Developer Name Role Phone Unavailable Primary Care Provider Unavailabl e Source Comments [facility],non-owned Affiliates and Associated Physician Practices is amultiple site organization consisting of ambulatory clinics and hospital sitesin [place], [place], [place] and [place]. This disclosure is being madepursuant to the Care Everywhere program and may not contain all information available regarding this patient. Last updated 18.[facility] Allergies No known active allergies Medications * [...]
--- OUTSIDE RECORDS SUMMARY | 2025-01-18 09:02 | XMS_ITS | Continuity of Care Document ---
Author Organization [facility] Address [address] [place] [address] [address] [place] [address] Phone Care Team Providers Care Hand Stemmer Name Role Phone Margarita Rodriguez Unavailable Unavailable Advance Directives Directive Yes / No Effective Date File Name No Information Encounters Encounter Description Practice Location Reason(s) For Visit Diagnoses Date Provider Providers Copied on Encounter [facility], [address] [place] [address] [address], [place], [place], [id number], [place] tel:[phone] [facility] [place] No Information [address] Jennifer Avila. [address] , [address], [place], [address], [place]. tel:[phone] Family History Family Member Type Diagnosis Age At Onset No Information Payers Payer name Insurance type Covered libertarian ID Authoriza tion(s) No Information Social History [...]
--- NOTE | 2025-01-18 10:32 | ED_ITS ---
HPI - Nausea/Vomiting/Diarrhea General Chief complaint: Nausea/Vomiting/Diarrhea Stated complaint: diarrhea Time Seen by Provider: 01/18/25 10:23 History of Present Illness HPI Narrative: 69-year-old male presents emergency department for diarrhea for 5 days. Patient reports several bouts of diarrhea and lower abdominal pain and cramping. He endorses history of C diff back in 2006 is concerning may have C diff. He was also recently hospitalized at the end of November for pneumonia or he received IV antibiotics. States he underwent C diff testing with and draining her a which was negative. Diarrhea has persisted. He has been taking dicyclomine with little relief. He denies fever, vomiting, dysuria or hematuria, hematochezia, mucus in stool. Related Data Home Medications ?Medication ?Instructions ?Recorded ?Confirmed ?Last Taken ?Type dicyclomine 10 mg capsule 10 mg PO BID PRN abdominal pain 06/01/24 01/06/25 Unknown History rosuvastatin 10 mg tablet 5 mg PO DAILY 06/01/24 01/06/25 Unknown History sildenafil 50 mg tablet 50 mg PO DAILY PRN activity 06/01/24 01/06/25 Unknown History pantoprazole 40 mg tablet,delayed 40 mg PO QAM 08/20/24 01/06/25 Unknown History release Allergies Allergy/AdvReac Type Severity Reaction Status Date / Time No Known Allergies Allergy Verified 12/30/24 10:49 Review of Systems 2 Review of Systems: All systems reviewed & are unremarkable except as noted in HPI and below PMFSH Past Medical History Medical History Sepsis Prediabetes Hyperlipidemia BPH (benign prostatic hyperplasia) Irritable bowel syndrome Pancreatitis (~2017) C. difficile diarrhea (~2017) Surgical History Surgical History Hx of cholecystectomy (~2017) Family History Family History Father Hypertension Family history of lung cancer Cerebrovascular accident Social History Social History Smoking packs per day: 0.5 Smoking cigarettes per day: 10.0 Years smoked: 40 Smoking pack-years: 20.00 Smoking status: Unknown if ever smoked Alcohol intake: unknown Substance use: never Substance use type: does not use Do You Feel Safe in your Home?: Yes Lack of Transportation: No Lack of Food: Never True Current Housing: I Have Housing Concerned About Future Housing: No Difficulty Paying Gas/Electric Bills: No Difficulty Paying for Meds: No Currently Unemployed: No Education: High School Diploma/GED Difficulty w/ Childcare or Family Care: No Spiritual care concerns: No Exam 2 Narrative: GENERAL: Well-appearing, well-nourished, and in no acute distress. HEAD: Normocephalic, atraumatic. EYES: PERRLA and EOMI. ENT: Nares clear, no rhinorrhea or epistaxis. Mucous membranes moist. NECK: Supple. CHEST: Clear to auscultation. No respiratory distress. HEART: Regular rate and rhythm. No murmur heard. Normal peripheral pulses. ABDOMEN: Soft, nontender, nondistended, normal active bowel sounds. EXTREMITIES: Normal range of motion. No edema. SKIN: Warm, dry, no rash. NEURO: No focal deficits. Alert and oriented x3 Course Vital Signs Vital signs: Vital Signs Temperature 97.0 F L 01/18/25 08:47 Pulse Rate 114 H 01/18/25 08:47 Respiratory Rate 18 01/18/25 08:47 Blood Pressure 133/79 01/18/25 08:47 Pulse Oximetry 98 01/18/25 08:47 Oxygen Delivery Room Air 01/18/25 08:47 Temperature 97.0 F L 01/18/25 08:47 Pulse Rate 63 01/18/25 11:15 Respiratory Rate 16 01/18/25 11:15 Blood Pressure 128/74 01/18/25 11:15 Pulse Oximetry 97 01/18/25 11:15 Oxygen Delivery Room Air 01/18/25 08:47 MDM - Nausea/Vomiting/Diarrhea MDM Narrative Medical decision making narrative: 69-year-old male presents emergency department for diarrhea for the past 5 days. History of C diff with recent hospitalization and IV antibiotics at the end of November. Vitals with tachycardia 114. He is afebrile nontoxic appearing. Exam significant the above. CBC without leukocytosis, stable chronic anemia with hemoglobin of 12.4. Chemistries are unremarkable. Lipase normal. UA is unremarkable. CT abdomen pelvis shows no acute findings. Patient was unable to provide a stool sample during his several hours stay in the ED. He was updated on results. He was given a prescription for loperamide and advised to follow-up with GI in his PCP. Return precautions provided. He is agreeable to plan verbalized understanding. Discharged in stable condition. Lab Data 01/18/25 10:44 01/18/25 10:44 Labs: Lab Results 01/18/25 01/18/25 Range/Units 10:44 10:50 WBC 8.6 (4.5-10.0) K/mm3 RBC 3.98 L (4.6-6.20) M/mm3 Hgb 12.4 L (14.0-18.0) g/dL Hct 36.7 L (42.0-52.0) % MCV 92.2 (80-100) fl MCH 31.2 (26-34) pg MCHC 33.8 (32-36) g/dl RDW 14.1 (11.5-14.5) % Plt Count 327 (150-375) k/mm3 MPV 9.7 (7.4-10.4) fl Immature Gran % (Auto) 0.3 (0-0.5) % Neut % (Auto) 72.8 (45.5-73.1) % Lymph % (Auto) 19.6 (18.3-44.2) % [place] % (Auto) 6.9 (2.6-8.5) % Eos % (Auto) 0.2 (0-4.4) % Baso % (Auto) 0.2 (0.2-1.2) % Lymph # (Auto) 1.68 (0.9-3.2) K/mm3 [place] # (Auto) 0.6 (0.1-0.6) K/mm3 Eos # (Auto) 0.0 (0-0.3) K/mm3 Baso # (Auto) 0.0 (0.0-0.1) K/mm3 Abs Immat Gran (auto) 0.03 (0.00-0.031) K/mm3 Absolute Neuts (auto) 6.2 (1.3-6.7) K/mm3 Absolute Nucleated RBC 0.000 (0.0-0.012) K/mm3 Nucleated RBC % 0.0 (0.0-0.2) % Sodium 138 (137-145) mmol/L Potassium 4.2 (3.4-5.0) mmol/L Chloride 105 (98-107) mmol/L Carbon Dioxide 23 (22-30) mmol/L Anion Gap 10 (4-12) mmol/L BUN 17 (9-20) mg/dL Creatinine 0.91 (0.7-1.3) mg/dL Estim Creat Clear Calc 67 ml/min Estimated GFR > 60 (59 - ) Glucose 73 (65-110) mg/dL Calcium 9.3 (8.4-10.2) mg/dL Total Bilirubin 0.5 (0.2-1.3) mg/dL AST 28 (17-59) U/L ALT 26 (6-50) U/L Alkaline Phosphatase 72 (38-126) U/L Total Protein 7.0 (6.3-8.2) g/dL Albumin 3.9 (3.5-5.1) g/dL Lipase 50 (23-300) U/L Urine Color Yellow (Yellow) Urine Appearance Clear (Clear) Urine pH 5.5 (5.0-9.0) Ur Specific [place] 1.018 (1.001-1.035) Urine Protein Negative (Negative) mg/dL Urine Glucose (UA) Negative (Negative) mg/dL Urine Ketones Negative (Negative) mg/dL Ur Blood (Man) Negative (Negative) Urine Nitrate Negative (Negative) Urine Bilirubin Negative (Negative) Urine Urobilinogen 0.2 (<2.0) mg/dL Leukocyte Esterase Rfl Negative (Negative) HARPAL/UL Discharge Plan Discharge Clinical Impression: Diarrhea Qualifiers: Diarrhea type: unspecified type Qualified Code(s): R19.7 - Diarrhea, unspecified Patient Disposition: Home, Self-Care Condition: Stable Instructions: Antibiotic Form, Acute Diarrhea (ED) Additional Instructions: Please drink plenty of fluids including water, Gatorade and Pedialyte. Eat a bland diet including bananas, rice, applesauce and toast. Take Bentyl as needed for stomach cramps and loperamide as needed for diarrhea. Follow up with her primary care provider. Return to the emergency department if you develop new or worsening symptoms. Patient Language: Persian Prescriptions: New loperamide 2 mg capsule 2 mg PO Q6H PRN (Reason: loose stool) Qty: 20 0RF No Action pantoprazole 40 mg tablet,delayed release (DR/EC) 40 mg PO QAM rosuvastatin 10 mg tablet 5 mg PO DAILY dicyclomine 10 mg capsule 10 mg PO BID PRN (Reason: abdominal pain) sildenafil 50 mg tablet 50 mg PO DAILY PRN (Reason: activity) Rx Instructions: administer 30 minutes to 4 hours before activity albuterol sulfate [Ventolin HFA] 90 mcg/actuation HFA aerosol inhaler 2 puff inhalation QID PRN (Reason: shortness of breath or wheezing) Qty: 8.5 0RF Follow-up/Referrals: Benoit Solis MD [Physician] - Ignacio Encinas DO [Primary Care Provider] -
[2025-01-18 10:50] LABS: Basophils Percent Auto 0.2 % (0.2-1.2); Eosinophils Percent Auto 0.2 % (0-4.4); Hematocrit 36.7 % (42.0-52.0); Hemoglobin 12.4 g/dL (14.0-18.0); Immature Granulocyte Absolute 0.03 K/mm3 (0.00-0.031); Immature Granulocyte Percent A 0.3 % (0-0.5); Lymphocytes Absolute Auto 1.68 K/mm3 (0.9-3.2); Lymphocytes Percent Auto 19.6 % (18.3-44.2); Mean Corpuscular HGB Conc 33.8 g/dl (32-36); Mean Corpuscular Hemoglobin 31.2 pg (26-34); Mean Corpuscular Volume 92.2 fl (80-100); Mean Platelet Volume 9.7 fl (7.4-10.4); Monocytes Absolute Auto 0.6 K/mm3 (0.1-0.6); Monocytes Percent Auto 6.9 % (2.6-8.5); Neutrophils Absolute Auto 6.2 K/mm3 (1.3-6.7); Neutrophils Percent Auto 72.8 % (45.5-73.1); Platelet Count Result 327 k/mm3 (150-375); Red Blood Count 3.98 M/mm3 (4.6-6.20); Red Cell Distribution Width 14.1 % (11.5-14.5); White Blood Count 8.6 K/mm3 (4.5-10.0)
[2025-01-18] MEDS: SODIUM CHLORIDE 0.9% IV 1,000 ML 999 ML IV CONT (10:53)
[2025-01-18 10:58] LABS: Add Urine Microscopic? NO; Appearance Urine Clear (Clear); Bilirubin Urine Negative (Negative); Blood Urine Negative (Negative); Color Urine Yellow (Yellow); Glucose Urine UA Negative (Negative); Ketones Urine Negative (Negative); Leukocyte Esterase Ur Negative LEU/UL (Negative); Nitrate Urine Negative (Negative); Protein Urine Negative (Negative); Specific Grav Ur 1.018 (1.001-1.035); Urobilinogen Urine 0.2 mg/dL (<2.0); pH Urine 5.5 (5.0-9.0)
[2025-01-18 11:06] LABS: Alanine Aminotransferase 26 U/L (6-50); Albumin Level 3.9 g/dL (3.5-5.1); Alkaline Phosphatase 72 U/L (38-126); Anion Gap 10 mmol/L (4-12); Aspartate Amino Transferase 28 U/L (17-59); Bilirubin,Total 0.5 mg/dL (0.2-1.3); Blood Urea Nitrogen 17 mg/dL (9-20); Calcium 9.3 mg/dL (8.4-10.2); Carbon Dioxide 23 mmol/L (22-30); Chloride 105 mmol/L (98-107); Estimated CRCL calculation 67 ml/min; Estimated Glomerular Filt Rate > 60; Glucose 73 mg/dL (65-110); Lipase 50 U/L (23-300); Potassium 4.2 mmol/L (3.4-5.0); Sodium 138 mmol/L (137-145)
[2025-01-18 11:15] VITALS: BP 128/74; PULSE 63; RESP 16; O2SAT 97
--- OUTSIDE RECORDS SUMMARY | 2025-01-18 12:14 | XMS_ITS | CLINICAL SUMMARY ---
Author Name Krisnha Avila Address [address] [place] [address] Phone Organization [facility] Address [address] [place] [address] Phone Care Team Providers Care Study Specialist Name Role Phone Krishna Avila Unavailable [phone] Aury Gutierrez Unavailable [facility] Unavailable [phone] SOCIAL HISTORY Social History Observation Description Dates Observed Sex Male [id number] None recorded VITAL SIGNS BMI Body Mass Index Percentile Date Systolic Diastolic Head Circumference Head Circumference Percentile Height Oxygen Concentration Pulse Pulse Oximeter Respiratory Rate Temperature Weight [id number]-[id number]-[id number] Percentile 24.9 56 kg/m 2 Unknown 108 [...] active Acute upper respiratory infection, unspecified 2 4944686 active Other specified symptoms and signs involving the circulatory and respiratory systems 00103930 active COVID-19 78164775 active Acute cough 14236084 active Other specified symptoms and signs involving the circulatory and respiratory systems 54595659 active Acute upper respiratory infection, unspecified 2 3679706 active Influenza due to unidentifie d influenza virus with other manifestations No date recorded undefined Fever, unspecified 09501206 active Other fatigue 97911532 active Headache, unspecified 15056041 active FAMILY HISTORY ENCOUNTERS Encounter Performer Location E/M Code E/M Label Date Diagnosi s visit [facility] [address] No E/M display label [id number] COVID-19 visit [facility] 25303 No E/M display label [id number] Hyperlipidemia visit [facility] [address]643 No E/M display label [id number] Acute cough visit [facility] [address]26 No E/M display label [id number] Other specified symptoms and signs involving the circulatory and respiratory systems LAB RESULTS Overall Code Overall Text [Code] Result Type (Code) Result Text Result Value Relevant Reference Range Date Lab Name [facility] [place] [facility] [place] lab code recorded Covid-19 Antigen Test CARD [83620] 73789-0 Covid-19 Antigen Test CARD Positive Normal = Negative 20231125 08 [facility] [place] [facility] [address] [place] [address] No overall lab code recorded Flu Test (Binax, QuickVue ) [45051] No result type code recorded Flu A Negative Normal = Negative 20231125 08 [facility] [place] [facility] [address] [place] [address] 0000 No overall lab code recorded Flu Test (Binax, QuickVue ) [94152] No result type code recorded Flu B Negative Normal = Negative 20231125 08 [facility] [place] [facility] [address] [place] [address] 0000 No overall lab code recorded Rapid Strep [18810] No result type code recorded Rapid Strep Negative Normal = Negative 20231125 08 [facility] [place] [facility] [address] [place] [address] 0000 No overall lab code recorded Covid-19 Antigen Test CARD [65765] QTY(1) No result type code recorded Covid-19 Antigen Test CARD [45837] QTY(1) No range recorded 20231125 08 [facility] [place] [facility] [address] [place] [address] 0000 No overall lab code recorded Rapid Strep [22551] QTY(1) [Complet ed by: Aury Gutierrez] No result type code recorded Rapid Strep [81406] QTY(1) [Complet ed by: Aury Gutierrez] No range recorded 20231125 08 [facility] [place] [facility] [address] [place] [address] 0000 INSURANCE PROVIDERS (PAYERS) Payer name Policy type / Coverage type Policy ID Covered democrat ID Insurance type Policy [employer]. [id number] ? Primary Brent [place] PROCEDURE NOTE Date Name Status Summary Text (N otes) 20241002 Covid-19 Antigen Test CARD Completed C ovid-19 Antigen Test CARD [94906] QTY(1) 20241002 Flu Test (Binax, QuickVue) Completed F sergey Test (Binax, QuickVue) [66185] QTY(2) [Completed by: Aury Gutierrez] 20241002 Rapid Strep Completed Rapid Strep [87 880] QTY(1) [Completed by: Aury Gutierrez] 20241002 41550 Completed Flu Test (Binax , QuickVue) None recorded None recorded None recorded None recorde d 20241002 Covid-19 Antigen Test CARD Completed C ovid-19 Antigen Test CARD [87285] QTY(1) 20241002 Flu Test (Binax, QuickVue) Completed F sergey Test (Binax, QuickVue) [80418] QTY(2) [Completed by: Aury Gutierrez] 20241002 Rapid Strep Completed Rapid Strep [87 880] QTY(1) [Completed by: Aury Gutierrez] PROCEDURES Date Name Status Summary Text (N otes) 20241002 Covid-19 Antigen Test CARD Completed C ovid-19 Antigen Test CARD [74171] QTY(1) 20241002 Flu Test (Binax, QuickVue) Completed F sergey Test (Binax, QuickVue) [27680] QTY(2) [Completed by: Aury Gutierrez] 20241002 Rapid Strep Completed Rapid Strep [87 880] QTY(1) [Completed by: Aury Gutierrez] 20241002 32611 Completed Flu Test (Binax , QuickVue) None recorded None recorded None recorded None recorde d 20241002 Covid-19 Antigen Test CARD Completed C ovid-19 Antigen Test CARD [88552] QTY(1) 20241002 Flu Test (Binax, QuickVue) Completed F sergey Test (Binax, QuickVue) [30567] QTY(2) [Completed by: Aury Gutierrez] 20241002 Rapid [...] Code Text Date Observatio n Data Instruction [id number] Patient Education 2024-10-02 The nivia leiva was stable enough for home care and placed in home self-isolation while awaiting the laboratory results. The patient was also given handouts containing information about home self-isolation regarding both the patient and household members. Instructed the patient to remain on home self-isolation until contacted with the laboratory results and further guidance is given. Patient verbalized understanding. Instruction [id number] Patient Education 2024-10-02 You we re tested [...] will be presenting to their facility. Instruction [id number] Patient Education 2024-10-02 If you r condition [...] for follow up care as instructed. Instruction [id number] Patient Education 2024-10-02 Avoid Caffeine, Alcohol, Peppermint, and Chocolate. Keep Head of bed elevated 4-6 inches. Instruction [id number] Patient Education 2024-10-02 Please use over the counter cough remedies, discuss the best options with your pharmacist. Instruction [id number] Patient Education 2024-10-02 Tyleno l every 4-6 hours as needed and/or Ibuprofen every 6-8 hours as needed, over the counter for pain or fever. Instruction [id number] Patient Education 2024-10-02 It is possible that dehydration could be the cause of or aggravate your condition. Both food and water are important to maintain proper hydration status. Signs of dehydration include but are not limited to; feeling thirsty, urinating less often, dark yellow urine, dry mouth, feeling tired, and feeling dizzy or lightheaded. Instruction [id number] Patient Education 2024-10-02 Paxlov id Antiviral therapy was recommended today, as one or more of the following criteria were met; *Age >65 *Age >50 without vaccination *Immunocompromised *Multiple risk factors Instruction [id number] Patient Education 2024-10-02 You te sted positive for COVID-19. You have been given detailed information on follow-up and self-care. If you have worsening symptoms please call 911 and inform personnel that you were COVID-19 positive. Instruction [id number] Patient Education 2024-10-02 Your c hronic illness appears to be exacerbated and therefore needs to be addressed as it adds complexity for the condition you have be diagnosed with. Instruction [id number] Patient Education 2024-10-02 You we re prescribed Paxlovid for your Covid diagnosis. This medication interacts with your high cholesterol medication. As we discussed, stop your cholesterol medication for the next 10 days. Observation 23640-2 Covid-19 Antigen Test CARD None specified No [...] circulatory and respiratory systems 20231004 active COVID-19 83716898 active Acute cough 20241006 active Other specified symptoms and signs involving the circulatory and respiratory systems 20241006 active Acute upper respiratory infection, unspecified 2501025 active Influenza due to unidentifie d influenza virus with other manifestations No date recorded undefined Fever, unspecified 20241218 active Other fatigue 95650960 active Headache, unspecified 20241218 active * Vitals: BMI Body Mass Index Percentile Date Systolic Diastolic Head Circumference Head Circumference Percentile Height Oxygen Concentration Pulse Pulse Oximeter Respiratory Rate Temperature Weight Vixigc-iyu-sqlkom Percentile 24.9 56 kg/m 2 Unknown 108 [...] Code Text Date Observatio n Data Instruction [id number] Patient Education 2024-10-02 The pa tient was stable enough for home care and placed in home self-isolation while awaiting the laboratory results. The patient was also given handouts containing information about home self-isolation regarding both the patient and household members. Instructed the patient to remain on home self-isolation until contacted with the laboratory results and further guidance is given. Patient verbalized understanding. Instruction [id number] Patient Education 2024-10-02 You we re tested [...] will be presenting to their facility. Instruction [id number] Patient Education 2024-10-02 If you r condition [...] for follow up care as instructed. Instruction [id number] Patient Education 2024-10-02 Avoid Caffeine, Alcohol, Peppermint, and Chocolate. Keep Head of bed elevated 4-6 inches. Instruction [id number] Patient Education 2024-10-02 Please use over the counter cough remedies, discuss the best options with your pharmacist. Instruction [id number] Patient Education 2024-10-02 Tyleno l every 4-6 hours as needed and/or Ibuprofen every 6-8 hours as needed, over the counter for pain or fever. Instruction [id number] Patient Education 2024-10-02 It is possible that dehydration could be the cause of or aggravate your condition. Both food and water are important to maintain proper hydration status. Signs of dehydration include but are not limited to; feeling thirsty, urinating less often, dark yellow urine, dry mouth, feeling tired, and feeling dizzy or lightheaded. Instruction [id number] Patient Education 2024-10-02 Paxlov id Antiviral therapy was recommended today, as one or more of the following criteria were met; *Age >65 *Age >50 without vaccination *Immunocompromised *Multiple risk factors Instruction [id number] Patient Education 2024-10-02 You te sted positive for COVID-19. You have been given detailed information on follow-up and self-care. If you have worsening symptoms please call 911 and inform personnel that you were COVID-19 positive. Instruction [id number] Patient Education 2024-10-02 Your c hronic illness appears to be exacerbated and therefore needs to be addressed as it adds complexity for the condition you have be diagnosed with. Instruction [id number] Patient Education 2024-10-02 You we re prescribed Paxlovid for your Covid diagnosis. This medication interacts with your high cholesterol medication. As we discussed, stop your cholesterol medication for the next 10 days. Observation 30540-1 Covid-19 Antigen Test CARD None specified No Observation data available for this record Observation Flu Test (Binax, QuickVue) None specified No Observation data available for this record Observation Rapid Strep None specified No Obser vation data available for this record * Lab Results: Overall Code Overall Text [Code] Result Type (Code) Result Text Result Value Relevant Reference Range Date Lab Name [facility] Zip Code No overall lab code recorded Covid-19 Antigen Test CARD [40792] 17215-0 Covid-19 Antigen Test CARD Positive Normal = Negative 20231125 08 [facility] [place] [address] [place] [address] No overall lab code recorded Flu Test (Binax, QuickVue ) [21427] No result type code recorded Flu A Negative Normal = Negative 20231125 08 [facility] [place] [address] [place] [address] 0000 No overall lab code recorded Flu Test (Binax, QuickVue ) [09849] No result type code recorded Flu B Negative Normal = Negative 20231125 08 [facility] [place] [facility] [address] [place] [address] 0000 No overall lab code recorded Rapid Strep [45763] No result type code recorded Rapid Strep Negative Normal = Negative 20231125 08 [facility] [place] [facility] [address] [place] [address] 0000 No overall lab code recorded Covid-19 Antigen Test CARD [92478] QTY(1) No result type code recorded Covid-19 Antigen Test CARD [74683] QTY(1) No range recorded 20231125 08 [facility] [place] [address] [place] [address] No overall lab code recorded Rapid Strep [47810] QTY(1) [Complet ed by: Aury Gutierrez] No result type code recorded Rapid Strep [02631] QTY(1) [Complet ed by: Aury Gutierrez] No range recorded 340093 08 [facility] [place] [address] [place] [address] 0000 * Radiology Results: Overall Code Overall Text [Code] Result Type (Code) Result Text Result Value Relevant Reference Range Date Lab Name [facility] Zip Code None recorded None recorded None [...] OF TREATMENT Treatment Type Code Text Date [place] alfaro Data Instruction [id number] Patient Education 2024-10-02 The pa tient was stable enough for home care and placed in home self-isolation while awaiting the laboratory results. The patient was also given handouts containing information about home self-isolation regarding both the patient and household members. Instructed the patient to remain on home self-isolation until contacted with the laboratory results and further guidance is given. Patient verbalized understanding. Instruction [id number] Patient Education 2024-10-02 You we re tested [...] will be presenting to their facility. Instruction [id number] Patient Education 2024-10-02 If you r condition [...] for follow up care as instructed. Instruction [id number] Patient Education 2024-10-02 Avoid Caffeine, Alcohol, Peppermint, and Chocolate. Keep Head of bed elevated 4-6 inches. Instruction [id number] Patient Education 2024-10-02 Please use over the counter cough remedies, discuss the best options with your pharmacist. Instruction [id number] Patient Education 2024-10-02 Tyleno l every 4-6 hours as needed and/or Ibuprofen every 6-8 hours as needed, over the counter for pain or fever. Instruction [id number] Patient Education 2024-10-02 It is possible that dehydration could be the cause of or aggravate your condition. Both food and water are important to maintain proper hydration status. Signs of dehydration include but are not limited to; feeling thirsty, urinating less often, dark yellow urine, dry mouth, feeling tired, and feeling dizzy or lightheaded. Instruction [id number] Patient Education 2024-10-02 Paxlov id Antiviral therapy was recommended today, as one or more of the following criteria were met; *Age >65 *Age >50 without vaccination *Immunocompromised *Multiple risk factors Instruction [id number] Patient Education 2024-10-02 You te sted positive for COVID-19. You have been given detailed information on follow-up and self-care. If you have worsening symptoms please call 911 and inform personnel that you were COVID-19 positive. Instruction [id number] Patient Education 2024-10-02 Your c hronic illness appears to be exacerbated and therefore needs to be addressed as it adds complexity for the condition you have be diagnosed with. Instruction [id number] Patient Education 2024-10-02 You we re prescribed Paxlovid for your Covid diagnosis. This medication interacts with your high cholesterol medication. As we discussed, stop your cholesterol medication for the next 10 days. Observation 02070-9 Covid-19 Antigen Test CARD None specified No [...]
--- OUTSIDE RECORDS SUMMARY | 2025-01-18 12:14 | XMS_ITS | Patient Health Summary ---
Author Organization [facility] [employer] Address [address] [place] [address] Care Team Providers Care Production Cell Leader Name Role Phone Unavailable Primary Care Provider Unavailabl e Note from [facility] [employer] [facility] [employer],non-owned Affiliates and Associated Physician Practices is amultiple site organization consisting of ambulatory clinics and hospital sitesin [place], [place], [place] and [place]. This disclosure is being madepursuant to the Care Everywhere program and may not contain all information available regarding this patient. Last updated 18.[facility] [employer] Allergies No known active allergies Medications * [...]
--- OUTSIDE RECORDS SUMMARY | 2025-01-18 12:14 | XMS_ITS | Clinical Summary ---
Author Organization [facility] Address [address] [place] [address] Care Team Providers Care Sheet Sorter Name Role Phone Unavailable Primary Care Provider [...]
--- OUTSIDE RECORDS SUMMARY | 2025-01-18 12:14 | XMS_ITS | CLINICAL SUMMARY ---
Author Name Krishna Avila Address [address] [place] [address] Phone Organization [facility] Address [address] [place] [address] Phone Care Team Providers Care Machine Worker Name Role Phone Krishna Avila Unavailable [phone] Nahed Bush Unavailable [facility] Unavailable SOCIAL HISTORY Social History Observation Description Dates Observed Current Smoking Status Current every day smoker 20231004 Sex Male 86421646 VITAL SIGNS BMI Body Mass Index Percentile Date Systolic Diastolic Head Circumference Head Circumference Percentile Height Oxygen Concentration Pulse Pulse Oximeter Respiratory Rate Temperature Weight Cxygmb-cir-gdyqbu Percentile 24.8 82 kg/m 2 Unknown 110 [...] day PRN - Cough for 7 days 375301 08 syrup 3 times per day oral [...] active Acute upper respiratory infection, unspecified 2 5656627 active Other specified symptoms and signs involving the circulatory and respiratory systems 53367482 active COVID-19 64999209 active Acute cough 06958677 active Other specified symptoms and signs involving the circulatory and respiratory systems 34823084 active Acute upper respiratory infection, unspecified 2 4436983 active Influenza due to unidentifie d influenza virus with other manifestations No date recorded undefined Fever, unspecified 76527444 active Other fatigue 71757367 active Headache, unspecified 16807565 active FAMILY HISTORY ENCOUNTERS Encounter Performer Location E/M Code E/M Label Date Diagnosi s visit [facility] [address] Office or other outpatient visit (detailed) [id number] Acute upper respiratory infection, unspecified visit [facility] [address] Office or other outpatient visit (detailed) 82859698 Other specified symptoms and signs involving the [...] type / Coverage type Policy ID Covered alliance party ID Insurance type Policy [employer] [id number] ? Primary Brent Marsh PROCEDURE NOTE Date [...] Code Text Date Observatio n Data Instruction [id number] Patient Education 2023-10-04 Recomm end follow up with PCP in 7-10 days if still not better. Instruction [id number] Patient Education 2023-10-04 May us e Afrin 2 puffs 2 times a day for 3 days, and then stop using. It has very high dependancy potential and may lead to a rebound congestion effect. Instruction [id number] Patient Education 2023-10-04 - do f requent valsalva maneuvers throughout the day - apply warm compresses to the outer ear several times a day - use Afrin (oxymetazoline) nasal spray twice a day for 3 days Instruction [id number] Patient Education 2023-10-04 You ar e currently [...] counter medication options with your pharmacist. Instruction [id number] Patient Education 2023-10-04 Nasal saline rinse/spray 3-4 times per day Instruction [id number] Patient Education 2023-10-04 If you r condition [...] for follow up care as instructed. Instruction [id number] Patient Education 2023-10-04 Please use over the counter cough remedies, discuss the best options with your pharmacist. Instruction [id number] Patient Education 2023-10-04 Please take prednisone/Medrol mark [...] active Acute upper respiratory infection, unspecified 2 4020066 active Other specified symptoms and signs involving the circulatory and respiratory systems 20231004 active COVID-19 24961705 active Acute cough 60170429 active Other specified symptoms and signs involving the circulatory and respiratory systems 55948042 active Acute upper respiratory infection, unspecified 2 3251512 active Influenza due to unidentifie d influenza virus with other manifestations No date recorded undefined Fever, unspecified 08160960 active Other fatigue 26079060 active Headache, unspecified 16506309 active * Vitals: BMI Body Mass Index Percentile Date Systolic Diastolic Head Circumference Head Circumference Percentile Height Oxygen Concentration Pulse Pulse Oximeter Respiratory Rate Temperature Weight Jcwnus-zpg-xdxzvn Percentile 24.8 82 kg/m 2 Unknown 110 [...] Code Text Date Observatio n Data Instruction [id number] Patient Education 2023-10-04 Recomm end follow up with PCP in 7-10 days if still not better. Instruction [id number] Patient Education 2023-10-04 May us e Afrin 2 puffs 2 times a day for 3 days, and then stop using. It has very high dependancy potential and may lead to a rebound congestion effect. Instruction [id number] Patient Education 2023-10-04 - do f requent valsalva maneuvers throughout the day - apply warm compresses to the outer ear several times a day - use Afrin (oxymetazoline) nasal spray twice a day for 3 days Instruction [id number] Patient Education 2023-10-04 You ar e currently [...] counter medication options with your pharmacist. Instruction [id number] Patient Education 2023-10-04 Nasal saline rinse/spray 3-4 times per day Instruction [id number] Patient Education 2023-10-04 If you r condition [...] for follow up care as instructed. Instruction [id number] Patient Education 2023-10-04 Please use over the counter cough remedies, discuss the best options with your pharmacist. Instruction [id number] Patient Education 2023-10-04 Please take prednisone/Medrol mark [...] Code Text Date Instructio n Data Instruction [id number] Patient Education 2023-10-04 Recomm end follow up with PCP in 7-10 days if still not better. Instruction [id number] Patient Education 2023-10-04 May us e Afrin 2 puffs 2 times a day for 3 days, and then stop using. It has very high dependancy potential and may lead to a rebound congestion effect. Instruction [id number] Patient Education 2023-10-04 - do f requent valsalva maneuvers throughout the day - apply warm compresses to the outer ear several times a day - use Afrin (oxymetazoline) nasal spray twice a day for 3 days Instruction [id number] Patient Education 2023-10-04 You ar e currently [...] counter medication options with your pharmacist. Instruction [id number] Patient Education 2023-10-04 Nasal saline rinse/spray 3-4 times per day Instruction [id number] Patient Education 2023-10-04 If you r condition [...] for follow up care as instructed. Instruction [id number] Patient Education 2023-10-04 Please use over the counter cough remedies, discuss the best options with your pharmacist. Instruction [id number] Patient Education 2023-10-04 Please take prednisone/Medrol mark [...]
--- OUTSIDE RECORDS SUMMARY | 2025-01-18 12:14 | XMS_ITS | Referral Summary ---
Author Organization [facility] [employer] Address [address] [place] [address] Care Team Providers Care Lawn Care Professional Name Role Phone Unavailable Primary Care Provider Unavailabl e Source Comments [facility] [employer],non-owned Affiliates and Associated Physician Practices is amultiple site organization consisting of ambulatory clinics and hospital sitesin [place], [place]. This disclosure is being madepursuant to the Care Everywhere program and may not contain all information available regarding this patient. Last updated 18.[employer] Allergies No known active allergies Medications * [...]
--- OUTSIDE RECORDS SUMMARY | 2025-01-18 12:14 | XMS_ITS | CLINICAL SUMMARY ---
Author Name Krishna Avila Address [address] [place] [address] Phone Organization [facility] Address [address] [place] [address] Phone Care Team Providers Care Carrier Washer Name Role Phone Krishna Avila Unavailable [phone] Essence Floreskarinnataly Unavailable [facility] Unavailable [phone] SOCIAL HISTORY Social History Observation Description Dates Observed Sex Male 88639171 None recorded VITAL SIGNS BMI Body Mass Index Percentile Date Systolic Diastolic Head Circumference Head Circumference Percentile Height Oxygen Concentration Pulse Pulse Oximeter Respiratory Rate Temperature Weight Hpcpgm-dtk-drtujc Percentile 23.8 71 kg/m 2 Unknown 51234 121 122 mmHg 77 mmHg Unknown Unknown [...] active Acute upper respiratory infection, unspecified 2 9080978 active Other specified symptoms and signs involving the circulatory and respiratory systems 78166418 active COVID-19 50553561 active Acute cough 73306664 active Other specified symptoms and signs involving the circulatory and respiratory systems 35817457 active Acute upper respiratory infection, unspecified 2 1135441 active Influenza due to unidentifie d influenza virus with other manifestations No date recorded undefined Fever, unspecified 15283673 active Other fatigue 35751112 active Headache, unspecified 05150311 active FAMILY HISTORY ENCOUNTERS Encounter Performer Location E/M Code E/M Label Date Diagnosi s visit [facility] [address] No E/M display label 16834051 Acute upper respiratory infection, unspecified visit [facility] [address] No E/M display label 17681197 Influenza due to unidentified influenza virus with other manifestations visit [facility] [address] No E/M display label 27102850 Fever, unspecified visit [facility] [address] No E/M display label 47812344 Other fatigue visit Krishna Avila [facility] [address] No E/M display label 62247324 Headache, unspecified LAB RESULTS Overall Code Overall Text [Code] Result Type (Code) Result Text Result Value Relevant Reference Range Date Lab Name [facility] Zip Code No overall lab code recorded Covid-19 Antigen Test CARD [56502] 12747-9 Covid-19 Antigen Test CARD Negative Normal = Negative 047297 [facility] [place] [address] [place] [address] No overall lab code recorded Flu Test (Binax, QuickVue ) [10965] No result type code recorded Flu A Negative Normal = Negative 649750 [facility] [place] [address] [place] [address] No overall lab code recorded Flu Test (Binax, QuickVue ) [59648] No result type code recorded Flu B Negative Normal = Negative 220961 [facility] [place] [address] [place] [address] No overall lab code recorded Rapid Strep [00224] No result type code recorded Rapid Strep Negative Normal = Negative 470588 [facility] [place] [address] [place] [address] No overall lab code recorded Covid-19 Antigen Test CARD [37998] QTY(1) No result type code recorded Covid-19 Antigen Test CARD [93755] QTY(1) No range recorded 779334 [facility] [place] [address] [place] [address] No overall lab code recorded Rapid Strep [31424] QTY(1) [Complet ed by: Naima Flores] No result type code recorded Rapid Strep [74548] QTY(1) [Complet ed by: Naima Flores] No range recorded 478235 [facility] [place] [address] [place] [address] INSURANCE PROVIDERS (PAYERS) Payer name Policy type / Coverage type Policy ID Covered republican ID Insurance type Policy [employer] [id number] ? Primary Brent Marsh PROCEDURE NOTE Date Name Status Summary Text (N otes) 31431618 Covid-19 Antigen Test CARD Completed C ovid-19 Antigen Test CARD [57136] QTY(1) 08214175 Flu Test (Binax, QuickVue) Completed F sergey Test (Binax, QuickVue) [27547] QTY(2) [Completed by: Naima Flores] 30230813 Rapid Strep Completed Rapid Strep [87 880] QTY(1) [Completed by: Naima Flores] 13285855 70637 Completed Flu Test (Binax , QuickVue) None recorded None recorded None recorded None recorde d 72515564 Covid-19 Antigen Test CARD Completed C ovid-19 Antigen Test CARD [93331] QTY(1) 84082432 Flu Test (Binax, QuickVue) Completed F sergey Test (Binax, QuickVue) [76087] QTY(2) [Completed by: Naima Flores] 90326412 Rapid Strep Completed Rapid Strep [87 880] QTY(1) [Completed by: Naima Flores] PROCEDURES Date Name Status Summary Text (N otes) 19481629 Covid-19 Antigen Test CARD Completed C ovid-19 Antigen Test CARD [91286] QTY(1) 80494569 Flu Test (Binax, QuickVue) Completed F sergey Test (Binax, QuickVue) [27027] QTY(2) [Completed by: Naima Flores] 44344000 Rapid Strep Completed Rapid Strep [87 880] QTY(1) [Completed by: Naima Flores] 64046684 97148 Completed Flu Test (Binax , QuickVue) None recorded None recorded None recorded None recorde d 81607330 Covid-19 Antigen Test CARD Completed C ovid-19 Antigen Test CARD [42874] QTY(1) 04927436 Flu Test (Binax, QuickVue) Completed F sergey Test (Binax, QuickVue) [19676] QTY(2) [Completed by: Naima Flores] 79171665 Rapid Strep Completed Rapid Strep [87 880] [...] Code Text Date Observatio n Data Instruction [id number] Patient Education 2024-12-15 Recomm end follow up with PCP in 7-10 days if still not better. Instruction [id number] Patient Education 2024-12-15 You ar e currently [...] counter medication options with your pharmacist. Instruction [id number] Patient Education 2024-12-15 Your t est for COVID-19 was negative today. You have been given education sheets with detailed information on self and follow up care. If you have worsening symptoms, please call 911. Instruction [id number] Patient Education 2024-12-15 Nasal saline rinse/spray 3-4 times per day Instruction [id number] Patient Education 2024-12-15 If you r condition [...] for follow up care as instructed. Instruction [id number] Patient Education 2024-12-15 Please use over the counter cough remedies, discuss the best options with your pharmacist. Observation 34864-8 Covid-19 Antigen Test CARD None specified No [...] circulatory and respiratory systems 20231004 active COVID-19 34808792 active Acute cough 20241006 active Other specified symptoms and signs involving the circulatory and respiratory systems 20241006 active Acute upper respiratory infection, unspecified 2 2501025 active Influenza due to unidentifie d influenza virus with other manifestations No date recorded undefined Fever, unspecified 20241218 active Other fatigue 02895635 active Headache, unspecified 20241218 active * Vitals: BMI Body Mass Index Percentile Date Systolic Diastolic Head Circumference Head Circumference Percentile Height Oxygen Concentration Pulse Pulse Oximeter Respiratory Rate Temperature Weight Krdvdj-mty-fvmfbb Percentile 23.8 71 kg/m 2 Unknown 80874 121 122 mmHg 77 mmHg Unknown Unknown [...] Code Text Date Observatio n Data Instruction [id number] Patient Education 2024-12-15 Recomm end follow up with PCP in 7-10 days if still not better. Instruction [id number] Patient Education 2024-12-15 You ar e currently [...] counter medication options with your pharmacist. Instruction [id number] Patient Education 2024-12-15 Your t est for COVID-19 was negative today. You have been given education sheets with detailed information on self and follow up care. If you have worsening symptoms, please call 911. Instruction [id number] Patient Education 2024-12-15 Nasal saline rinse/spray 3-4 times per day Instruction [id number] Patient Education 2024-12-15 If you r condition [...] for follow up care as instructed. Instruction [id number] Patient Education 2024-12-15 Please use over the counter cough remedies, discuss the best options with your pharmacist. Observation 53343-3 Covid-19 Antigen Test CARD None specified No Observation data available for this record Observation Flu Test (Binax, QuickVue) None specified No Observation data available for this record Observation Rapid Strep None specified No Obser vation data available for this record * Lab Results: Overall Code Overall Text [Code] Result Type (Code) Result Text Result Value Relevant Reference Range Date Lab Name [facility] Zip [facility] No overall lab code recorded Covid-19 Antigen Test CARD [86261] 31461-8 Covid-19 Antigen Test CARD Negative Normal = Negative 407405 [facility] [place] [address] [place] [address] No overall lab code recorded Flu Test (Binax, QuickVue ) [02708] No result type code recorded Flu A Negative Normal = Negative 375923 [facility] [place] [address] [place] [address] No overall lab code recorded Flu Test (Binax, QuickVue ) [89668] No result type code recorded Flu B Negative Normal = Negative 055569 [facility] [place] [address] [place] [address] No overall lab code recorded Rapid Strep [18423] No result type code recorded Rapid Strep Negative Normal = Negative 768524 [facility] [place] [address] [place] [address] No overall lab code recorded Covid-19 Antigen Test CARD [02970] QTY(1) No result type code recorded Covid-19 Antigen Test CARD [29683] QTY(1) No range recorded 630833 [facility] [place] [address] [place] [address] No overall lab code recorded Rapid Strep [66001] QTY(1) [Complet ed by: Naima Flores] No result type code recorded Rapid Strep [77129] QTY(1) [Complet ed by: Naima Flores] No range recorded 396378 [facility] [place] [address] [place] [address] * Radiology Results: Overall Code Overall Text [Code] Result Type (Code) Result Text Result Value Relevant Reference Range Date Lab Name [facility] Zip Code None recorded None recorded None [...] Code Text Date Instructio n Data Instruction [id number] Patient Education 2024-12-15 Recomm end follow up with PCP in 7-10 days if still not better. Instruction [id number] Patient Education 2024-12-15 You ar e currently [...] counter medication options with your pharmacist. Instruction [id number] Patient Education 2024-12-15 Your t est for COVID-19 was negative today. You have been given education sheets with detailed information on self and follow up care. If you have worsening symptoms, please call 911. Instruction [id number] Patient Education 2024-12-15 Nasal saline rinse/spray 3-4 times per day Instruction [id number] Patient Education 2024-12-15 If you r condition [...] for follow up care as instructed. Instruction [id number] Patient Education 2024-12-15 Please use over the counter cough remedies, discuss the best options with your pharmacist. Observation 65514-2 Covid-19 Antigen Test CARD None specified No [...]
--- OUTSIDE RECORDS SUMMARY | 2025-01-18 12:14 | XMS_ITS | Continuity of Care Document ---
Author Organization [facility] Address [address] [place] [address] [address] [place] [address] Phone Care Team Providers Care Second Baller Name Role Phone Margarita Rodriguez Unavailable Unavailable Advance Directives Directive Yes / No Effective Date File Name No Information Encounters Encounter Description Practice Location Reason(s) For Visit Diagnoses Date Provider Providers Copied on Encounter [facility], [address] [place] [address] [address], [place], [place], [id number], [place] tel:[phone] [facility] No Information 4[address] Jennifer Avila. [address] , [address], [place], [address], [place]. tel:[phone] Family History Family Member Type Diagnosis Age At Onset No Information Payers Payer name Insurance type Covered democrat ID Authoriza tion(s) No Information Social History [...]
--- OUTSIDE RECORDS SUMMARY | 2025-01-18 12:14 | XMS_ITS | Continuity of Care Document ---
Author Organization [facility] Address [address] [place] [address] Phone Care Team Providers Care Superintendent Building Name Role Phone Administrative, Provider Unavailable Unavail able Procedures Procedure Date Work/Medical Disability Exam RJR 2011 Advance Directives Directive Yes / No Effective Date File Name No Information Encounters Encounter Description Practice Location Reason(s) For Visit Diagnoses Date Provider Providers Copied on Encounter [facility], [address] [place], [place] [address]u[address] [place] [address], [id number], tel:[phone] [facility] [employer] [facility] CERVICAL DISC DEGEN 2 Administrative Provider. [address] [place] [address], [place] [address], [place], [place], [address] [place] [address], . tel:[phone] Referring Provider: Markell Aceves, [address] [place] [address] [address] [facility] [place], [address] . tel:[phone] Family History Family Member Type Diagnosis Age At Onset No Information Payers Payer name Insurance type Covered constitution party ID Authorkarlaa titmaeka(s) [facility] [id number] Social History Type Description Quantity Date [...]
--- OUTSIDE RECORDS SUMMARY | 2025-01-18 12:14 | XMS_ITS | Clinical Summary ---
Author Organization [facility] [email or web address] Address [address] [place] [address] Care Team Providers Care Choirmaster Name Role Phone Unavailable Primary Care Provider Unavailabl e Source Comments [facility] [email or web address],non-owned Affiliates and Associated Physician Practices is amultiple site organization consisting of ambulatory clinics and hospital sitesin [place], [place], [place] and [place]. This disclosure is being madepursuant to the Care Everywhere program and may not contain all information available regarding this patient. Last updated 18.[employer] Allergies No known active allergies Medications * [...]
[2025-01-18 13:04] VITALS: BP 136/78; PULSE 82; RESP 16; TEMP 36.8; O2SAT 99
== END 2025-01-18 13:05 | disposition home or self-care (01) ==
PROVIDERS: Emergency Provider Physician Assistant; PCP Internal Medicine
DX: R19.7 Diarrhea, unspecified (principal); E78.5 Hyperlipidemia, unspecified; N40.0 Benign prostatic hyperplasia without lower urinary tract symptoms; K58.9 Irritable bowel syndrome, unspecified; R73.03 Prediabetes; F17.210 Nicotine dependence, cigarettes, uncomplicated; Z90.49 Acquired absence of other specified parts of digestive tract; Z79.899 Other long term (current) drug therapy
CPT/HCPCS: 36415; 74177; 80053; 81003; 83690; 85025; 96360; 99284; J7030; Q9967

== ENCOUNTER 2025-02-10 08:37 | Outpatient (NON) | payer MEDICARE, SELFPAY ==
--- OUTSIDE RECORDS SUMMARY | 2025-02-10 09:05 | XMS_ITS | CLINICAL SUMMARY ---
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 Name Role Phone Krishna Avila Unavailable [phone] Aury Gutierrez Unavailable [facility] Unavailable [phone] SOCIAL HISTORY Social History Observation Description Dates Observed Sex Male [id number] None recorded VITAL SIGNS BMI Body Mass Index Percentile Date Systolic Diastolic Head Circumference Head Circumference Percentile Height Oxygen Concentration Pulse Pulse Oximeter Respiratory Rate Temperature Weight Bitdmd-pgu-mwqxcu Percentile 24.9 56 kg/m 2 Unknown 108 [...] active Acute upper respiratory infection, unspecified 2 2606331 active Other specified symptoms and signs involving the circulatory and respiratory systems [id number] active COVID-19 20593888 active Acute cough 51147432 active Other specified symptoms and signs involving the circulatory and respiratory systems 05996365 active Acute upper respiratory infection, unspecified 2 1774790 active Influenza due to unidentifie d influenza virus with other manifestations No date recorded undefined Fever, unspecified 29100643 active Other fatigue 03269407 active Headache, unspecified 38022288 active FAMILY HISTORY ENCOUNTERS Encounter Performer Location E/M Code E/M Label Date Diagnosi s visit [facility] [address]140 No E/M display label [id number] COVID-19 visit [facility] [address]78 No E/M display label [id number] Hyperlipidemia visit [facility] 27815 No E/M display label [id number] Acute cough visit [facility] [address] No E/M display label [id number] Other specified symptoms and signs involving the circulatory and respiratory systems LAB RESULTS Overall Code Overall Text [Code] Result Type (Code) Result Text Result Value Relevant Reference Range Date Lab Name [facility] No overall lab code recorded Covid-19 Antigen Test CARD [74097] 21467-7 Covid-19 Antigen Test CARD Positive Normal = Negative 20231125 08 [facility] [place] [facility] [address] [place] [address] No overall lab code recorded Flu Test (Binax, QuickVue ) [76979] No result type code recorded Flu A Negative Normal = Negative 20231125 08 [facility] [place] [facility] [address] [place] [address] 0000 No overall lab code recorded Flu Test (Binax, QuickVue ) [48751] No result type code recorded Flu B Negative Normal = Negative 20231125 08 [facility] [place] [facility] [address] [place] [address] 0000 No overall lab code recorded Rapid Strep [26566] No result type code recorded Rapid Strep Negative Normal = Negative 20231125 08 [facility] [place] [facility] [address] [place] [address] 0000 No overall lab code recorded Covid-19 Antigen Test CARD [81606] QTY(1) No result type code recorded Covid-19 Antigen Test CARD [56942] QTY(1) No range recorded 20231125 08 [facility] [place] [facility] [address] [place] [address] 0000 No overall lab code recorded Rapid Strep [33772] QTY(1) [Complet ed by: Aury Gutierrez] No result type code recorded Rapid Strep [68722] QTY(1) [Complet ed by: Aury Gutierrez] No range recorded 20231125 08 [facility] [place] [facility] [facility] [address] [place] [address] 0000 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 [id number] ? Primary Bretn [place] PROCEDURE NOTE Date Name Status Summary Text (N otes) 20241002 Covid-19 Antigen Test CARD Completed C ovid-19 Antigen Test CARD [12106] QTY(1) 20241002 Flu Test (Binax, QuickVue) Completed F sergey Test (Binax, QuickVue) [96587] QTY(2) [Completed by: Aury Gutierrez] 20241002 Rapid Strep Completed Rapid Strep [87 880] QTY(1) [Completed by: Aury Gutierrez] 20241002 08076 Completed Flu Test (Binax , QuickVue) None recorded None recorded None recorded None recorde d 20241002 Covid-19 Antigen Test CARD Completed C ovid-19 Antigen Test CARD [03122] QTY(1) 20241002 Flu Test (Binax, QuickVue) Completed F sergey Test (Binax, QuickVue) [16288] QTY(2) [Completed by: Aury Gutierrez] 20241002 Rapid Strep Completed Rapid Strep [87 880] QTY(1) [Completed by: Aury Gutierrez] PROCEDURES Date Name Status Summary Text (N otes) 20241002 Covid-19 Antigen Test CARD Completed C ovid-19 Antigen Test CARD [70047] QTY(1) 20241002 Flu Test (Binax, QuickVue) Completed F sergey Test (Binax, QuickVue) [70216] QTY(2) [Completed by: Aury Gutierrez] 20241002 Rapid Strep Completed Rapid Strep [87 880] QTY(1) [Completed by: Aury Gutierrez] 20241002 35821 Completed Flu Test (Binax , QuickVue) None recorded None recorded None recorded None recorde d 20241002 Covid-19 Antigen Test CARD Completed C ovid-19 Antigen Test CARD [44670] QTY(1) 20241002 Flu Test (Binax, QuickVue) Completed F sergey Test (Binax, QuickVue) [02355] QTY(2) [Completed by: Aury Gutierrez] 20241002 Rapid [...] Code Text Date Observatio n Data Instruction [id number] Patient Education 2024-10-02 The nivia leiva was stable enough for home care and placed in home self-isolation while awaiting the laboratory results. The patient was also given handouts containing information about home self-isolation regarding both the patient and household members. Instructed the patient to remain on home self-isolation until contacted with the laboratory results and further guidance is given. Patient verbalized understanding. Instruction [id number] Patient Education 2024-10-02 You we re tested [...] will be presenting to their facility. Instruction [id number] Patient Education 2024-10-02 If you r condition [...] for follow up care as instructed. Instruction [id number] Patient Education 2024-10-02 Avoid Caffeine, Alcohol, Peppermint, and Chocolate. Keep Head of bed elevated 4-6 inches. Instruction [id number] Patient Education 2024-10-02 Please use over the counter cough remedies, discuss the best options with your pharmacist. Instruction [id number] Patient Education 2024-10-02 Tyleno l every 4-6 hours as needed and/or Ibuprofen every 6-8 hours as needed, over the counter for pain or fever. Instruction [id number] Patient Education 2024-10-02 It is possible that dehydration could be the cause of or aggravate your condition. Both food and water are important to maintain proper hydration status. Signs of dehydration include but are not limited to; feeling thirsty, urinating less often, dark yellow urine, dry mouth, feeling tired, and feeling dizzy or lightheaded. Instruction [id number] Patient Education 2024-10-02 Paxlov id Antiviral therapy was recommended today, as one or more of the following criteria were met; *Age >65 *Age >50 without vaccination *Immunocompromised *Multiple risk factors Instruction [id number] Patient Education 2024-10-02 You te sted positive for COVID-19. You have been given detailed information on follow-up and self-care. If you have worsening symptoms please call 911 and inform personnel that you were COVID-19 positive. Instruction [id number] Patient Education 2024-10-02 Your c hronic illness appears to be exacerbated and therefore needs to be addressed as it adds complexity for the condition you have be diagnosed with. Instruction [id number] Patient Education 2024-10-02 You we re prescribed Paxlovid for your Covid diagnosis. This medication interacts with your high cholesterol medication. As we discussed, stop your cholesterol medication for the next 10 days. Observation 16226-7 Covid-19 Antigen Test CARD None specified No [...] circulatory and respiratory systems 20231004 active COVID-19 46029996 active Acute cough 20241006 active Other specified symptoms and signs involving the circulatory and respiratory systems 20241006 active Acute upper respiratory infection, unspecified 2501025 active Influenza due to unidentifie d influenza virus with other manifestations No date recorded undefined Fever, unspecified 20241218 active Other fatigue 47265213 active Headache, unspecified 20241218 active * Vitals: BMI Body Mass Index Percentile Date Systolic Diastolic Head Circumference Head Circumference Percentile Height Oxygen Concentration Pulse Pulse Oximeter Respiratory Rate Temperature Weight Icqmhk-pnv-wusrfh Percentile 24.9 56 kg/m 2 Unknown 108 [...] Code Text Date Observatio n Data Instruction [id number] Patient Education 2024-10-02 The pa tient was stable enough for home care and placed in home self-isolation while awaiting the laboratory results. The patient was also given handouts containing information about home self-isolation regarding both the patient and household members. Instructed the patient to remain on home self-isolation until contacted with the laboratory results and further guidance is given. Patient verbalized understanding. Instruction [id number] Patient Education 2024-10-02 You we re tested [...] will be presenting to their facility. Instruction [id number] Patient Education 2024-10-02 If you r condition [...] for follow up care as instructed. Instruction [id number] Patient Education 2024-10-02 Avoid Caffeine, Alcohol, Peppermint, and Chocolate. Keep Head of bed elevated 4-6 inches. Instruction [id number] Patient Education 2024-10-02 Please use over the counter cough remedies, discuss the best options with your pharmacist. Instruction [id number] Patient Education 2024-10-02 Tyleno l every 4-6 hours as needed and/or Ibuprofen every 6-8 hours as needed, over the counter for pain or fever. Instruction [id number] Patient Education 2024-10-02 It is possible that dehydration could be the cause of or aggravate your condition. Both food and water are important to maintain proper hydration status. Signs of dehydration include but are not limited to; feeling thirsty, urinating less often, dark yellow urine, dry mouth, feeling tired, and feeling dizzy or lightheaded. Instruction [id number] Patient Education 2024-10-02 Paxlov id Antiviral therapy was recommended today, as one or more of the following criteria were met; *Age >65 *Age >50 without vaccination *Immunocompromised *Multiple risk factors Instruction [id number] Patient Education 2024-10-02 You te sted positive for COVID-19. You have been given detailed information on follow-up and self-care. If you have worsening symptoms please call 911 and inform personnel that you were COVID-19 positive. Instruction [id number] Patient Education 2024-10-02 Your c hronic illness appears to be exacerbated and therefore needs to be addressed as it adds complexity for the condition you have be diagnosed with. Instruction [id number] Patient Education 2024-10-02 You we re prescribed Paxlovid for your Covid diagnosis. This medication interacts with your high cholesterol medication. As we discussed, stop your cholesterol medication for the next 10 days. Observation 99321-3 Covid-19 Antigen Test CARD None specified No Observation data available for this record Observation Flu Test (Binax, QuickVue) None specified No Observation data available for this record Observation Rapid Strep None specified No Obser vation data available for this record * Lab Results: Overall Code Overall Text [Code] Result Type (Code) Result Text Result Value Relevant Reference Range Date Lab Name [facility] Zip Code No overall lab code recorded Covid-19 Antigen Test CARD [23345] 97254-0 Covid-19 Antigen Test CARD Positive Normal = Negative 20231125 08 [facility] [place] [address] [place] [address] No overall lab code recorded Flu Test (Binax, QuickVue ) [58518] No result type code recorded Flu A Negative Normal = Negative 20231125 08 [facility] [place] [facility] [address] [place] [address] 0000 No overall lab code recorded Flu Test (Binax, QuickVue ) [30999] No result type code recorded Flu B Negative Normal = Negative 20231125 08 [facility] [place] [facility] [address] [place] [address] 0000 No overall lab code recorded Rapid Strep [42488] No result type code recorded Rapid Strep Negative Normal = Negative 20231125 08 [facility] [place] [facility] [address] [place] [address] 0000 No overall lab code recorded Covid-19 Antigen Test CARD [74334] QTY(1) No result type code recorded Covid-19 Antigen Test CARD [69625] QTY(1) No range recorded 20231125 08 [facility] [place] [facility] [address] [place] [address] 0000 No overall lab code recorded Rapid Strep [39504] QTY(1) [Complet ed by: Aury Gutierrez] No result type code recorded Rapid Strep [38363] QTY(1) [Complet ed by: Aury Gutierrez] No range recorded 059616 08 [facility] [place] [facility] [address] [place] [address] 0000 * Radiology Results: Overall Code Overall Text [Code] Result Type (Code) Result Text Result Value Relevant Reference Range Date Lab Name [facility] Zip Code None recorded None recorded [...] Code Text Date [place] alfaro Data Instruction [id number] Patient Education 2024-10-02 The pa tient was stable enough for home care and placed in home self-isolation while awaiting the laboratory results. The patient was also given handouts containing information about home self-isolation regarding both the patient and household members. Instructed the patient to remain on home self-isolation until contacted with the laboratory results and further guidance is given. Patient verbalized understanding. Instruction [id number] Patient Education 2024-10-02 You we re tested [...] will be presenting to their facility. Instruction [id number] Patient Education 2024-10-02 If you r condition [...] for follow up care as instructed. Instruction [id number] Patient Education 2024-10-02 Avoid Caffeine, Alcohol, Peppermint, and Chocolate. Keep Head of bed elevated 4-6 inches. Instruction [id number] Patient Education 2024-10-02 Please use over the counter cough remedies, discuss the best options with your pharmacist. Instruction [id number] Patient Education 2024-10-02 Tyleno l every 4-6 hours as needed and/or Ibuprofen every 6-8 hours as needed, over the counter for pain or fever. Instruction [id number] Patient Education 2024-10-02 It is possible that dehydration could be the cause of or aggravate your condition. Both food and water are important to maintain proper hydration status. Signs of dehydration include but are not limited to; feeling thirsty, urinating less often, dark yellow urine, dry mouth, feeling tired, and feeling dizzy or lightheaded. Instruction [id number] Patient Education 2024-10-02 Paxlov id Antiviral therapy was recommended today, as one or more of the following criteria were met; *Age >65 *Age >50 without vaccination *Immunocompromised *Multiple risk factors Instruction [id number] Patient Education 2024-10-02 You te sted positive for COVID-19. You have been given detailed information on follow-up and self-care. If you have worsening symptoms please call 911 and inform personnel that you were COVID-19 positive. Instruction [id number] Patient Education 2024-10-02 Your c hronic illness appears to be exacerbated and therefore needs to be addressed as it adds complexity for the condition you have be diagnosed with. Instruction [id number] Patient Education 2024-10-02 You we re prescribed Paxlovid for your Covid diagnosis. This medication interacts with your high cholesterol medication. As we discussed, stop your cholesterol medication for the next 10 days. Observation 48784-2 Covid-19 Antigen Test CARD None specified No [...]
--- OUTSIDE RECORDS SUMMARY | 2025-02-10 09:05 | XMS_ITS | Clinical Summary ---
Author Organization [facility] Address [address] [place] [address] Care Team Providers Care Capacity Manager Name Role Phone Unavailable Primary Care [...]
--- OUTSIDE RECORDS SUMMARY | 2025-02-10 09:05 | XMS_ITS | Continuity of Care Document ---
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 [address] [facility] , [address], [place], [address], [place]. tel:[phone] Family History Family Member Type Diagnosis Age At Onset No Information Payers Payer name Insurance type Covered constitution party ID Authoriza tion(s) No Information Social [...]
--- OUTSIDE RECORDS SUMMARY | 2025-02-10 09:05 | XMS_ITS | CLINICAL SUMMARY ---
Author Name Krishna Avila Address [address] [place] [address] Phone Organization [facility] Address [address] [place] [address] Phone Care Team Providers Care Design Draftsman Name Role Phone Krishna Avila Unavailable [phone] Essence Floreskarinnataly Unavailable [facility] Unavailable [phone] SOCIAL HISTORY Social History Observation Description Dates Observed Sex Male [id number] None recorded VITAL SIGNS BMI Body Mass Index Percentile Date Systolic Diastolic Head Circumference Head Circumference Percentile Height Oxygen Concentration Pulse Pulse Oximeter Respiratory Rate Temperature Weight Prwtlf-ocb-lmsuld Percentile 23.8 71 kg/m 2 Unknown 75961 121 122 mmHg 77 mmHg Unknown Unknown [...] active Acute upper respiratory infection, unspecified 2 3540482 active Other specified symptoms and signs involving the circulatory and respiratory systems 13513812 active COVID-19 08285936 active Acute cough 19430276 active Other specified symptoms and signs involving the circulatory and respiratory systems 13331244 active Acute upper respiratory infection, unspecified 2 2384792 active Influenza due to unidentifie d influenza virus with other manifestations No date recorded undefined Fever, unspecified 43060058 active Other fatigue 14511327 active Headache, unspecified 33043741 active FAMILY HISTORY ENCOUNTERS Encounter Performer Location E/M Code E/M Label Date Diagnosi s visit [facility] [address] No E/M display label [id number] Acute upper respiratory infection, unspecified visit [facility] [address] No E/M display label 69755517 Influenza due to unidentified influenza virus with other manifestations visit [facility] [address] No E/M display label 89377054 Fever, unspecified visit [facility] [address] No E/M display label 35159744 Other fatigue visit Krishna Avila [facility] [address] No E/M display label 02296041 Headache, unspecified LAB RESULTS Overall Code Overall Text [Code] Result Type (Code) Result Text Result Value Relevant Reference Range Date Lab Name [facility] Zip Code No overall lab code recorded Covid-19 Antigen Test CARD [82827] 98365-2 Covid-19 Antigen Test CARD Negative Normal = Negative 109858 [facility] [place] [address] [place] [address] 0000 No overall lab code recorded Flu Test (Binax, QuickVue ) [60872] No result type code recorded Flu A Negative Normal = Negative 614382 [facility] [place] [facility] [address] [place] [address] 0000 No overall lab code recorded Flu Test (Binax, QuickVue ) [00087] No result type code recorded Flu B Negative Normal = Negative 985004 [facility] [place] [facility] [address] [place] [address] 0000 No overall lab code recorded Rapid Strep [14422] No result type code recorded Rapid Strep Negative Normal = Negative 989473 [facility] [place] [facility] [address] [place] [address] 0000 No overall lab code recorded Covid-19 Antigen Test CARD [27591] QTY(1) No result type code recorded Covid-19 Antigen Test CARD [45318] QTY(1) No range recorded 454087 [facility] [place] [facility] [address] [place] [address] 0000 No overall lab code recorded Rapid Strep [58696] QTY(1) [Complet ed by: Naima Flores] No result type code recorded Rapid Strep [22449] QTY(1) [Complet ed by: Naima Flores] No range recorded 702739 [facility] [place] [address] [place] [address] 0000 INSURANCE PROVIDERS (PAYERS) Payer name Policy type / Coverage type Policy ID Covered republican ID Insurance type Policy [employer]. [id number] ? Primary Brent [place] PROCEDURE NOTE Date Name Status Summary Text (N otes) [id number] Covid-19 Antigen Test CARD Completed C ovid-19 Antigen Test CARD [08715] QTY(1) 87391808 Flu Test (Binax, QuickVue) Completed F sergey Test (Binax, QuickVue) [88990] QTY(2) [Completed by: Naima Flores] 95465203 Rapid Strep Completed Rapid Strep [87 880] QTY(1) [Completed by: Naima Flores] [id number] 93189 Completed Flu Test (Binax , QuickVue) None recorded None recorded None recorded None recorde d [id number] Covid-19 Antigen Test CARD Completed C ovid-19 Antigen Test CARD [51477] QTY(1) 01784883 Flu Test (Binax, QuickVue) Completed F sergey Test (Binax, QuickVue) [06626] QTY(2) [Completed by: Naima Flores] 85112178 Rapid Strep Completed Rapid Strep [87 880] QTY(1) [Completed by: Naima Flores] PROCEDURES Date Name Status Summary Text (N otes) 45754157 Covid-19 Antigen Test CARD Completed C ovid-19 Antigen Test CARD [81417] QTY(1) 62454189 Flu Test (Binax, QuickVue) Completed F sergey Test (Binax, QuickVue) [39090] QTY(2) [Completed by: Naima Flores] 85735756 Rapid Strep Completed Rapid Strep [87 880] QTY(1) [Completed by: Naima Flores] [id number] 08189 Completed Flu Test (Binax , QuickVue) None recorded None recorded None recorded None recorde d 20600672 Covid-19 Antigen Test CARD Completed C ovid-19 Antigen Test CARD [17998] QTY(1) 70480561 Flu Test (Binax, QuickVue) Completed F sergey Test (Binax, QuickVue) [33044] QTY(2) [Completed by: Naima Flores] 30785922 Rapid Strep Completed Rapid Strep [87 880] [...] Code Text Date Observatio n Data Instruction [id number] Patient Education 2024-12-15 Recomm end follow up with PCP in 7-10 days if still not better. Instruction [id number] Patient Education 2024-12-15 You ar e currently [...] counter medication options with your pharmacist. Instruction [id number] Patient Education 2024-12-15 Your t est for COVID-19 was negative today. You have been given education sheets with detailed information on self and follow up care. If you have worsening symptoms, please call 911. Instruction [id number] Patient Education 2024-12-15 Nasal saline rinse/spray 3-4 times per day Instruction [id number] Patient Education 2024-12-15 If you r condition [...] for follow up care as instructed. Instruction [id number] Patient Education 2024-12-15 Please use over the counter cough remedies, discuss the best options with your pharmacist. Observation 68184-1 Covid-19 Antigen Test CARD None specified No [...] circulatory and respiratory systems 20231004 active COVID-19 47693054 active Acute cough 20241006 active Other specified symptoms and signs involving the circulatory and respiratory systems 20241006 active Acute upper respiratory infection, unspecified 2 2501025 active Influenza due to unidentifie d influenza virus with other manifestations No date recorded undefined Fever, unspecified 20241218 active Other fatigue 48221087 active Headache, unspecified 20241218 active * Vitals: BMI Body Mass Index Percentile Date Systolic Diastolic Head Circumference Head Circumference Percentile Height Oxygen Concentration Pulse Pulse Oximeter Respiratory Rate Temperature Weight Havzuf-xbj-cxqsqh Percentile 23.8 71 kg/m 2 Unknown 93948 121 122 mmHg 77 mmHg Unknown Unknown [...] Code Text Date Observatio n Data Instruction [id number] Patient Education 2024-12-15 Recomm end follow up with PCP in 7-10 days if still not better. Instruction [id number] Patient Education 2024-12-15 You ar e currently [...] counter medication options with your pharmacist. Instruction [id number] Patient Education 2024-12-15 Your t est for COVID-19 was negative today. You have been given education sheets with detailed information on self and follow up care. If you have worsening symptoms, please call 911. Instruction [id number] Patient Education 2024-12-15 Nasal saline rinse/spray 3-4 times per day Instruction [id number] Patient Education 2024-12-15 If you r condition [...] for follow up care as instructed. Instruction [id number] Patient Education 2024-12-15 Please use over the counter cough remedies, discuss the best options with your pharmacist. Observation 57426-3 Covid-19 Antigen Test CARD None specified No Observation data available for this record Observation Flu Test (Binax, QuickVue) None specified No Observation data available for this record Observation Rapid Strep None specified No Obser vation data available for this record * Lab Results: Overall Code Overall Text [Code] Result Type (Code) Result Text Result Value Relevant Reference Range Date Lab Name [facility] Zip [facility] [place] overall lab code recorded Covid-19 Antigen Test CARD [12707] 15545-8 Covid-19 Antigen Test CARD Negative Normal = Negative 210500 [facility] [place] [address] [place] [address] 0000 No overall lab code recorded Flu Test (Binax, QuickVue ) [35326] No result type code recorded Flu A Negative Normal = Negative 009714 [facility] [place] [facility] [address] [place] [address] 0000 No overall lab code recorded Flu Test (Binax, QuickVue ) [15446] No result type code recorded Flu B Negative Normal = Negative 995372 [facility] [place] [facility] [address] [place] [address] 0000 No overall lab code recorded Rapid Strep [74829] No result type code recorded Rapid Strep Negative Normal = Negative 775424 [facility] [place] [address] [place] [address] 0000 No overall lab code recorded Covid-19 Antigen Test CARD [54637] QTY(1) No result type code recorded Covid-19 Antigen Test CARD [31876] QTY(1) No range recorded 820395 [facility] [place] [address] [place] [address] 0000 No overall lab code recorded Rapid Strep [78581] QTY(1) [Complet ed by: Naima Flores] No result type code recorded Rapid Strep [74559] QTY(1) [Complet ed by: Naima Flores] No range recorded 708626 [facility] [place] [address] [place] [address] 0000 * Radiology Results: Overall Code Overall Text [Code] Result Type (Code) Result Text Result Value Relevant Reference Range Date Lab Name [facility] Zip Code None recorded None recorded [...] Code Text Date Instructio n Data Instruction [id number] Patient Education 2024-12-15 Recomm end follow up with PCP in 7-10 days if still not better. Instruction [id number] Patient Education 2024-12-15 You ar e currently [...] counter medication options with your pharmacist. Instruction [id number] Patient Education 2024-12-15 Your t est for COVID-19 was negative today. You have been given education sheets with detailed information on self and follow up care. If you have worsening symptoms, please call 911. Instruction [id number] Patient Education 2024-12-15 Nasal saline rinse/spray 3-4 times per day Instruction [id number] Patient Education 2024-12-15 If you r condition [...] for follow up care as instructed. Instruction [id number] Patient Education 2024-12-15 Please use over the counter cough remedies, discuss the best options with your pharmacist. Observation 08808-0 Covid-19 Antigen Test CARD None specified No [...]
--- OUTSIDE RECORDS SUMMARY | 2025-02-10 09:05 | XMS_ITS | CLINICAL SUMMARY ---
Author Name Krishna Avila Address [address] [place] [address] Phone Organization [facility] Address [address] [place] [address] Phone Care Team Providers Care Plastic Worker Name Role Phone Krishna Avila Unavailable [phone] Nahed Bush Unavailable [facility] Unavailable [phone] SOCIAL HISTORY Social History Observation Description Dates Observed Current Smoking Status Current every day smoker 20231004 Sex Male 76758175 VITAL SIGNS BMI Body Mass Index Percentile Date Systolic Diastolic Head Circumference Head Circumference Percentile Height Oxygen Concentration Pulse Pulse Oximeter Respiratory Rate Temperature Weight Wxdhtp-gde-wrmmom Percentile 24.8 82 kg/m 2 Unknown 110 [...] day PRN - Cough for 7 days 623112 08 syrup 3 times per day oral [...] active Acute upper respiratory infection, unspecified 2 9013266 active Other specified symptoms and signs involving the circulatory and respiratory systems 48865359 active COVID-19 21714689 active Acute cough 22231534 active Other specified symptoms and signs involving the circulatory and respiratory systems 99383794 active Acute upper respiratory infection, unspecified 2 2252009 active Influenza due to unidentifie d influenza virus with other manifestations No date recorded undefined Fever, unspecified 94233707 active Other fatigue 46467006 active Headache, unspecified 90858306 active FAMILY HISTORY ENCOUNTERS Encounter Performer Location E/M Code E/M Label Date Diagnosi s visit [facility] [address] Office or other outpatient visit (detailed) 00956218 Acute upper respiratory infection, unspecified visit [facility] [address] Office or other outpatient visit (detailed) 16837735 Other specified symptoms and signs involving the [...] Covered republican ID Insurance type Policy [employer] [id number] ? Primary Brent [place] PROCEDURE NOTE Date [...] Code Text Date Observatio n Data Instruction [id number] Patient Education 2023-10-04 Recomm end follow up with PCP in 7-10 days if still not better. Instruction [id number] Patient Education 2023-10-04 May us e Afrin 2 puffs 2 times a day for 3 days, and then stop using. It has very high dependancy potential and may lead to a rebound congestion effect. Instruction [id number] Patient Education 2023-10-04 - do f requent valsalva maneuvers throughout the day - apply warm compresses to the outer ear several times a day - use Afrin (oxymetazoline) nasal spray twice a day for 3 days Instruction [id number] Patient Education 2023-10-04 You ar e currently [...] counter medication options with your pharmacist. Instruction [id number] Patient Education 2023-10-04 Nasal saline rinse/spray 3-4 times per day Instruction [id number] Patient Education 2023-10-04 If you r condition [...] for follow up care as instructed. Instruction [id number] Patient Education 2023-10-04 Please use over the counter cough remedies, discuss the best options with your pharmacist. Instruction [id number] Patient Education 2023-10-04 Please take prednisone/Medrol mark [...] active Acute upper respiratory infection, unspecified 2 1192496 active Other specified symptoms and signs involving the circulatory and respiratory systems 20231004 active COVID-19 52747517 active Acute cough 98229004 active Other specified symptoms and signs involving the circulatory and respiratory systems 49080137 active Acute upper respiratory infection, unspecified 2 1676925 active Influenza due to unidentifie d influenza virus with other manifestations No date recorded undefined Fever, unspecified 07690615 active Other fatigue 39866923 active Headache, unspecified 19334538 active * Vitals: BMI Body Mass Index Percentile Date Systolic Diastolic Head Circumference Head Circumference Percentile Height Oxygen Concentration Pulse Pulse Oximeter Respiratory Rate Temperature Weight Kubdrx-was-animdg Percentile 24.8 82 kg/m 2 Unknown 110 [...] Code Text Date Observatio n Data Instruction [id number] Patient Education 2023-10-04 Recomm end follow up with PCP in 7-10 days if still not better. Instruction [id number] Patient Education 2023-10-04 May us e Afrin 2 puffs 2 times a day for 3 days, and then stop using. It has very high dependancy potential and may lead to a rebound congestion effect. Instruction [id number] Patient Education 2023-10-04 - do f requent valsalva maneuvers throughout the day - apply warm compresses to the outer ear several times a day - use Afrin (oxymetazoline) nasal spray twice a day for 3 days Instruction [id number] Patient Education 2023-10-04 You ar e currently [...] counter medication options with your pharmacist. Instruction [id number] Patient Education 2023-10-04 Nasal saline rinse/spray 3-4 times per day Instruction [id number] Patient Education 2023-10-04 If you r condition [...] for follow up care as instructed. Instruction [id number] Patient Education 2023-10-04 Please use over the counter cough remedies, discuss the best options with your pharmacist. Instruction [id number] Patient Education 2023-10-04 Please take prednisone/Medrol mark [...] Code Text Date Instructio n Data Instruction [id number] Patient Education 2023-10-04 Recomm end follow up with PCP in 7-10 days if still not better. Instruction [id number] Patient Education 2023-10-04 May us e Afrin 2 puffs 2 times a day for 3 days, and then stop using. It has very high dependancy potential and may lead to a rebound congestion effect. Instruction [id number] Patient Education 2023-10-04 - do f requent valsalva maneuvers throughout the day - apply warm compresses to the outer ear several times a day - use Afrin (oxymetazoline) nasal spray twice a day for 3 days Instruction [id number] Patient Education 2023-10-04 You ar e currently [...] counter medication options with your pharmacist. Instruction [id number] Patient Education 2023-10-04 Nasal saline rinse/spray 3-4 times per day Instruction [id number] Patient Education 2023-10-04 If you r condition [...] for follow up care as instructed. Instruction [id number] Patient Education 2023-10-04 Please use over the counter cough remedies, discuss the best options with your pharmacist. Instruction [id number] Patient Education 2023-10-04 Please take prednisone/Medrol mark [...]
--- OUTSIDE RECORDS SUMMARY | 2025-02-10 09:05 | XMS_ITS | Continuity of Care Document ---
Author Organization [facility] Address [address] [place] [address] Phone Care Team Providers Care Assembler Filters Name Role Phone Administrative, Provider Unavailable Unavail able Procedures Procedure Date Work/Medical Disability Exam RJR 2011 Advance Directives Directive Yes / No Effective Date File Name No Information Encounters Encounter Description Practice Location Reason(s) For Visit Diagnoses Date Provider Providers Copied on Encounter [facility], [address] [place], [place] [address] [place] [address], [id number], tel:[phone] [facility] CERVICAL DIS[facility] DEGEN 2 Administrative Provider[address] [place] [address], [place] [address], [place], [place], [address] [place] [address], . tel:[phone] Referring Provider: Markell Aceves, [address] [place] [address] [address] [facility], [place], [address] . tel:[phone] Family History Family Member Type Diagnosis Age At Onset No Information Payers Payer name Insurance type Covered constitution party ID Authorkarlaa titameka(s) [facility] [id number] Social History Type Description Quantity Date [...]
--- OUTSIDE RECORDS SUMMARY | 2025-02-10 09:06 | XMS_ITS | Clinical Summary ---
Author Organization [facility] Address [address] [address] [facility] [address] [place] [address] Care Team Providers Care Paralegals Name Role Phone Unavailable Primary Care Provider Unavailabl e Source Comments [facility],non-owned Affiliates and Associated Physician Practices is amultiple site organization consisting of ambulatory clinics and hospital sitesin [place], [place], [place] and [place]. This disclosure is being madepursuant to the Care Everywhere program and may not contain all information available regarding this patient. Last updated 18.[facility] Allergies No known active allergies Medications * [...] to complete this topic MENINGOCOCCAL (Group B) VACC INE SHARED DECISION-MAKING Aged Out No longer eligibl e based on patient's age to complete this topic MENINGOCOCCAL GROUPS A/C/Y/W VACCINE Aged Out No longer eligible b ased on patient's age to complete this topic
== END 2025-02-10 08:38 | disposition home or self-care (01) ==
LOC: ANHLAB 08:38
PROVIDERS: PCP Internal Medicine; Visit Provider Nurse Practitioner
DX: R19.7 Diarrhea, unspecified (principal)
CPT/HCPCS: 87045; 87177; 87209; 87427; 87449; 89055

== ENCOUNTER 2025-02-13 09:08 | Outpatient (NON) | payer MEDICARE, SELFPAY ==
--- OUTSIDE RECORDS SUMMARY | 2025-02-13 09:12 | XMS_ITS | CLINICAL SUMMARY ---
Author Name Krishna Avila Address [address] [place] [address] Phone Organization [facility] Address [address] [place] [address] Phone Care Team Providers Care Petrol Tanker Driver Name Role Phone Krishna Avila Unavailable [phone] Aury Gutierrez Unavailable [facility] Unavailable [phone] SOCIAL HISTORY Social History Observation Description Dates Observed Sex Male [id number] None recorded VITAL SIGNS BMI Body Mass Index Percentile Date Systolic Diastolic Head Circumference Head Circumference Percentile Height Oxygen Concentration Pulse Pulse Oximeter Respiratory Rate Temperature Weight Auqbtj-wuv-rkcclc Percentile 24.9 56 kg/m 2 Unknown 108 [...] active Acute upper respiratory infection, unspecified 2 5884215 active Other specified symptoms and signs involving the circulatory and respiratory systems 23136671 active COVID-19 41877082 active Acute cough 00721108 active Other specified symptoms and signs involving the circulatory and respiratory systems 86622469 active Acute upper respiratory infection, unspecified 2 7234061 active Influenza due to unidentifie d influenza virus with other manifestations No date recorded undefined Fever, unspecified 92215393 active Other fatigue 46746978 active Headache, unspecified 78057359 active FAMILY HISTORY ENCOUNTERS Encounter Performer Location E/M Code E/M Label Date Diagnosi s visit [facility] [address] No E/M display label [id number] COVID-19 visit [facility] [address]709 No E/M display label [id number] Hyperlipidemia visit [facility] [address] No E/M display label [id number] Acute cough visit [facility] [address] No E/M display label 85399705 Other specified symptoms and signs involving the circulatory and respiratory systems LAB RESULTS Overall Code Overall Text [Code] Result Type (Code) Result Text Result Value Relevant Reference Range Date Lab Name [facility] Zip Code No overall lab code recorded Covid-19 Antigen Test CARD [12223] 69304-1 Covid-19 Antigen Test CARD Positive Normal = Negative 20231125 08 [facility] [place] [address] [place] [address] 0000 No overall lab code recorded Flu Test (Binax, QuickVue ) [86052] No result type code recorded Flu A Negative Normal = Negative 20231125 08 [facility] [place] [facility] [address] [place] [address] 0000 No overall lab code recorded Flu Test (Binax, QuickVue ) [85086] No result type code recorded Flu B Negative Normal = Negative 20231125 08 [facility] [place] [facility] [address] [place] [address] 0000 No overall lab code recorded Rapid Strep [87630] No result type code recorded Rapid Strep Negative Normal = Negative 20231125 08 [facility] [place] [facility] [address] [place] [address] 0000 No overall lab code recorded Covid-19 Antigen Test CARD [25491] QTY(1) No result type code recorded Covid-19 Antigen Test CARD [12880] QTY(1) No range recorded 20231125 08 [facility] [place] [facility] [address] [place] [address] 0000 No overall lab code recorded Rapid Strep [25611] QTY(1) [Complet ed by: Aury Gutierrez] No result type code recorded Rapid Strep [50853] QTY(1) [Complet ed by: Aury Gutierrez] No range recorded 20231125 08 [facility] [place] [address] [place] [address] 0000 INSURANCE PROVIDERS (PAYERS) Payer name Policy type / Coverage type Policy ID Covered alliance party ID Insurance type Policy [employer] [id number] ? Primary [place] PROCEDURE NOTE Date Name Status Summary Text (N otes) 20241002 Covid-19 Antigen Test CARD Completed C ovid-19 Antigen Test CARD [71133] QTY(1) 20241002 Flu Test (Binax, QuickVue) Completed F sergey Test (Binax, QuickVue) [24410] QTY(2) [Completed by: Aury Gutierrez] 20241002 Rapid Strep Completed Rapid Strep [87 880] QTY(1) [Completed by: Aury Gutierrez] 20241002 84925 Completed Flu Test (Binax , QuickVue) None recorded None recorded None recorded None recorde d 20241002 Covid-19 Antigen Test CARD Completed C ovid-19 Antigen Test CARD [91373] QTY(1) 20241002 Flu Test (Binax, QuickVue) Completed F sergey Test (Binax, QuickVue) [17232] QTY(2) [Completed by: Aury Gutierrez] 20241002 Rapid Strep Completed Rapid Strep [87 880] QTY(1) [Completed by: Aury Gutierrez] PROCEDURES Date Name Status Summary Text (N otes) 20241002 Covid-19 Antigen Test CARD Completed C ovid-19 Antigen Test CARD [44883] QTY(1) 20241002 Flu Test (Binax, QuickVue) Completed F sergey Test (Binax, QuickVue) [57871] QTY(2) [Completed by: Aury Gutierrez] 20241002 Rapid Strep Completed Rapid Strep [87 880] QTY(1) [Completed by: Aury Gutierrez] 20241002 60131 Completed Flu Test (Binax , QuickVue) None recorded None recorded None recorded None recorde d 20241002 Covid-19 Antigen Test CARD Completed C ovid-19 Antigen Test CARD [81682] QTY(1) 20241002 Flu Test (Binax, QuickVue) Completed F sergey Test (Binax, QuickVue) [40623] QTY(2) [Completed by: Aury Gutierrez] 20241002 Rapid [...] Code Text Date Observatio n Data Instruction [id number] Patient Education 2024-10-02 The nivia leiva was stable enough for home care and placed in home self-isolation while awaiting the laboratory results. The patient was also given handouts containing information about home self-isolation regarding both the patient and household members. Instructed the patient to remain on home self-isolation until contacted with the laboratory results and further guidance is given. Patient verbalized understanding. Instruction [id number] Patient Education 2024-10-02 You we re tested [...] will be presenting to their facility. Instruction [id number] Patient Education 2024-10-02 If you r condition [...] for follow up care as instructed. Instruction [id number] Patient Education 2024-10-02 Avoid Caffeine, Alcohol, Peppermint, and Chocolate. Keep Head of bed elevated 4-6 inches. Instruction [id number] Patient Education 2024-10-02 Please use over the counter cough remedies, discuss the best options with your pharmacist. Instruction [id number] Patient Education 2024-10-02 Tyleno l every 4-6 hours as needed and/or Ibuprofen every 6-8 hours as needed, over the counter for pain or fever. Instruction [id number] Patient Education 2024-10-02 It is possible that dehydration could be the cause of or aggravate your condition. Both food and water are important to maintain proper hydration status. Signs of dehydration include but are not limited to; feeling thirsty, urinating less often, dark yellow urine, dry mouth, feeling tired, and feeling dizzy or lightheaded. Instruction [id number] Patient Education 2024-10-02 Paxlov id Antiviral therapy was recommended today, as one or more of the following criteria were met; *Age >65 *Age >50 without vaccination *Immunocompromised *Multiple risk factors Instruction [id number] Patient Education 2024-10-02 You te sted positive for COVID-19. You have been given detailed information on follow-up and self-care. If you have worsening symptoms please call 911 and inform personnel that you were COVID-19 positive. Instruction [id number] Patient Education 2024-10-02 Your c hronic illness appears to be exacerbated and therefore needs to be addressed as it adds complexity for the condition you have be diagnosed with. Instruction [id number] Patient Education 2024-10-02 You we re prescribed Paxlovid for your Covid diagnosis. This medication interacts with your high cholesterol medication. As we discussed, stop your cholesterol medication for the next 10 days. Observation 72262-0 Covid-19 Antigen Test CARD None specified No [...] active Acute upper respiratory infection, unspecified 2 6486695 active Other specified symptoms and signs involving the circulatory and respiratory systems 20231004 active COVID-19 62869196 active Acute cough 20241006 active Other specified symptoms and signs involving the circulatory and respiratory systems 20241006 active Acute upper respiratory infection, unspecified 2 2501025 active Influenza due to unidentifie d influenza virus with other manifestations No date recorded undefined Fever, unspecified 20241218 active Other fatigue 75126847 active Headache, unspecified 20241218 active * Vitals: BMI Body Mass Index Percentile Date Systolic Diastolic Head Circumference Head Circumference Percentile Height Oxygen Concentration Pulse Pulse Oximeter Respiratory Rate Temperature Weight Iigsla-ben-vdmhsw Percentile 24.9 56 kg/m 2 Unknown 34675 108 131 mmHg 82 mmHg Unknown Unknown [...] Code Text Date Observatio n Data Instruction [id number] Patient Education 2024-10-02 The pa tient was stable enough for home care and placed in home self-isolation while awaiting the laboratory results. The patient was also given handouts containing information about home self-isolation regarding both the patient and household members. Instructed the patient to remain on home self-isolation until contacted with the laboratory results and further guidance is given. Patient verbalized understanding. Instruction [id number] Patient Education 2024-10-02 You we re tested [...] will be presenting to their facility. Instruction [id number] Patient Education 2024-10-02 If you r condition [...] for follow up care as instructed. Instruction [id number] Patient Education 2024-10-02 Avoid Caffeine, Alcohol, Peppermint, and Chocolate. Keep Head of bed elevated 4-6 inches. Instruction [id number] Patient Education 2024-10-02 Please use over the counter cough remedies, discuss the best options with your pharmacist. Instruction [id number] Patient Education 2024-10-02 Tyleno l every 4-6 hours as needed and/or Ibuprofen every 6-8 hours as needed, over the counter for pain or fever. Instruction [id number] Patient Education 2024-10-02 It is possible that dehydration could be the cause of or aggravate your condition. Both food and water are important to maintain proper hydration status. Signs of dehydration include but are not limited to; feeling thirsty, urinating less often, dark yellow urine, dry mouth, feeling tired, and feeling dizzy or lightheaded. Instruction [id number] Patient Education 2024-10-02 Paxlov id Antiviral therapy was recommended today, as one or more of the following criteria were met; *Age >65 *Age >50 without vaccination *Immunocompromised *Multiple risk factors Instruction [id number] Patient Education 2024-10-02 You te sted positive for COVID-19. You have been given detailed information on follow-up and self-care. If you have worsening symptoms please call 911 and inform personnel that you were COVID-19 positive. Instruction [id number] Patient Education 2024-10-02 Your c hronic illness appears to be exacerbated and therefore needs to be addressed as it adds complexity for the condition you have be diagnosed with. Instruction [id number] Patient Education 2024-10-02 You we re prescribed Paxlovid for your Covid diagnosis. This medication interacts with your high cholesterol medication. As we discussed, stop your cholesterol medication for the next 10 days. Observation 94636-3 Covid-19 Antigen Test CARD None specified No Observation data available for this record Observation Flu Test (Binax, QuickVue) None specified No Observation data available for this record Observation Rapid Strep None specified No Obser vation data available for this record * Lab Results: Overall Code Overall Text [Code] Result Type (Code) Result Text Result Value Relevant Reference Range Date Lab Name [facility] Zip Code No overall lab code recorded Covid-19 Antigen Test CARD [70193] 88483-4 Covid-19 Antigen Test CARD Positive Normal = Negative 20231125 08 [facility] [place] [address] [place] [address] 0000 No overall lab code recorded Flu Test (Binax, QuickVue ) [98470] No result type code recorded Flu A Negative Normal = Negative 20231125 08 [facility] [place] [address] [place] [address] 0000 No overall lab code recorded Flu Test (Binax, QuickVue ) [94945] No result type code recorded Flu B Negative Normal = Negative 20231125 08 [facility] [place] [address] [place] [address] 0000 No overall lab code recorded Rapid Strep [29673] No result type code recorded Rapid Strep Negative Normal = Negative 20231125 08 [facility] [place] [address] [place] [address] 0000 No overall lab code recorded Covid-19 Antigen Test CARD [71910] QTY(1) No result type code recorded Covid-19 Antigen Test CARD [43641] QTY(1) No range recorded 20231125 08 [facility] [place] [address] [place] [address] 0000 No overall lab code recorded Rapid Strep [18315] QTY(1) [Complet ed by: Aury Gutierrez] No result type code recorded Rapid Strep [21629] QTY(1) [Complet ed by: Aury Gutierrez] No range recorded 20231125 08 [facility] [place] [address] [place] [address] 0000 * Radiology Results: Overall Code Overall Text [Code] Result Type (Code) Result Text Result Value Relevant Reference Range Date Lab Name [facility] Zip Code None recorded None recorded None [...] Code Text Date Instructebonie dominic Data Instruction [id number] Patient Education 2024-10-02 The pa tient was stable enough for home care and placed in home self-isolation while awaiting the laboratory results. The patient was also given handouts containing information about home self-isolation regarding both the patient and household members. Instructed the patient to remain on home self-isolation until contacted with the laboratory results and further guidance is given. Patient verbalized understanding. Instruction [id number] Patient Education 2024-10-02 You we re tested [...] will be presenting to their facility. Instruction [id number] Patient Education 2024-10-02 If you r condition [...] for follow up care as instructed. Instruction [id number] Patient Education 2024-10-02 Avoid Caffeine, Alcohol, Peppermint, and Chocolate. Keep Head of bed elevated 4-6 inches. Instruction [id number] Patient Education 2024-10-02 Please use over the counter cough remedies, discuss the best options with your pharmacist. Instruction [id number] Patient Education 2024-10-02 Tyleno l every 4-6 hours as needed and/or Ibuprofen every 6-8 hours as needed, over the counter for pain or fever. Instruction [id number] Patient Education 2024-10-02 It is possible that dehydration could be the cause of or aggravate your condition. Both food and water are important to maintain proper hydration status. Signs of dehydration include but are not limited to; feeling thirsty, urinating less often, dark yellow urine, dry mouth, feeling tired, and feeling dizzy or lightheaded. Instruction [id number] Patient Education 2024-10-02 Paxlov id Antiviral therapy was recommended today, as one or more of the following criteria were met; *Age >65 *Age >50 without vaccination *Immunocompromised *Multiple risk factors Instruction [id number] Patient Education 2024-10-02 You te sted positive for COVID-19. You have been given detailed information on follow-up and self-care. If you have worsening symptoms please call 911 and inform personnel that you were COVID-19 positive. Instruction [id number] Patient Education 2024-10-02 Your c hronic illness appears to be exacerbated and therefore needs to be addressed as it adds complexity for the condition you have be diagnosed with. Instruction [id number] Patient Education 2024-10-02 You we re prescribed Paxlovid for your Covid diagnosis. This medication interacts with your high cholesterol medication. As we discussed, stop your cholesterol medication for the next 10 days. Observation 33429-9 Covid-19 Antigen Test CARD None specified No [...]
--- OUTSIDE RECORDS SUMMARY | 2025-02-13 09:12 | XMS_ITS | CLINICAL SUMMARY ---
Author Name Krishna Avila Address [address] [place] [address] Phone Organization [facility] Address [address] [place] [address] Phone Care Team Providers Care Forensic Science Examiner Name Role Phone Krishna Avila Unavailable [phone] Nahed Bush Unavailable [facility] Unavailable [phone] SOCIAL HISTORY Social History Observation Description Dates Observed Current Smoking Status Current every day smoker 20231004 Sex Male 93123382 VITAL SIGNS BMI Body Mass Index Percentile Date Systolic Diastolic Head Circumference Head Circumference Percentile Height Oxygen Concentration Pulse Pulse Oximeter Respiratory Rate Temperature Weight Aqtpsj-mxp-fimyrf Percentile 24.8 82 kg/m 2 Unknown 110 [...] active Acute upper respiratory infection, unspecified 2 8707267 active Other specified symptoms and signs involving the circulatory and respiratory systems 76224206 active COVID-19 67288625 active Acute cough 29934116 active Other specified symptoms and signs involving the circulatory and respiratory systems 30932259 active Acute upper respiratory infection, unspecified 2 9860939 active Influenza due to unidentifie d influenza virus with other manifestations No date recorded undefined Fever, unspecified 66901326 active Other fatigue 66428931 active Headache, unspecified 69307442 active FAMILY HISTORY ENCOUNTERS Encounter Performer Location E/M Code E/M Label Date Diagnosi s visit [facility] [address] Office or other outpatient visit (detailed) [id number] Acute upper respiratory infection, unspecified visit [facility] [address] Office or other outpatient visit (detailed) 83408404 Other specified symptoms and signs involving the circulatory and respiratory systems LAB RESULTS Overall Code Overall Text [Code] Result Type (Code) Result Text Result Value Relevant Reference Range Date Lab Name [facility] No overall lab code recorded PPE Worn {PPE} QTY(1) No result type code recorded PPE Worn {PPE} QTY(1) No range recorded 20221125 No lab name record ed No street recorded No city recor ded No state record ed No zip code recor ded INSURANCE PROVIDERS (PAYERS) Payer name Policy type / Coverage type Policy ID Covered constitution party ID Insurance type Policy [employer] [id number] ? Primary [place] PROCEDURE NOTE Date [...] Code Text Date Observatio n Data Instruction [id number] Patient Education 2023-10-04 Recomm end follow up with PCP in 7-10 days if still not better. Instruction [id number] Patient Education 2023-10-04 May us e Afrin 2 puffs 2 times a day for 3 days, and then stop using. It has very high dependancy potential and may lead to a rebound congestion effect. Instruction [id number] Patient Education 2023-10-04 - do f requent valsalva maneuvers throughout the day - apply warm compresses to the outer ear several times a day - use Afrin (oxymetazoline) nasal spray twice a day for 3 days Instruction [id number] Patient Education 2023-10-04 You ar e currently [...] counter medication options with your pharmacist. Instruction [id number] Patient Education 2023-10-04 Nasal saline rinse/spray 3-4 times per day Instruction [id number] Patient Education 2023-10-04 If you r condition [...] for follow up care as instructed. Instruction [id number] Patient Education 2023-10-04 Please use over the counter cough remedies, discuss the best options with your pharmacist. Instruction [id number] Patient Education 2023-10-04 Please take prednisone/Medrol mark [...] active Acute upper respiratory infection, unspecified 2 3733227 active Other specified symptoms and signs involving the circulatory and respiratory systems 20231004 active COVID-19 02142812 active Acute cough 20241006 active Other specified symptoms and signs involving the circulatory and respiratory systems 20241006 active Acute upper respiratory infection, unspecified 2 6848762 active Influenza due to unidentifie d influenza virus with other manifestations No date recorded undefined Fever, unspecified 88665655 active Other fatigue 77592644 active Headache, unspecified 38919066 active * Vitals: BMI Body Mass Index Percentile Date Systolic Diastolic Head Circumference Head Circumference Percentile Height Oxygen Concentration Pulse Pulse Oximeter Respiratory Rate Temperature Weight Uvdqvz-kso-lprvbl Percentile 24.8 82 kg/m 2 Unknown 110 [...] Code Text Date Observatio n Data Instruction [id number] Patient Education 2023-10-04 Recomm end follow up with PCP in 7-10 days if still not better. Instruction [id number] Patient Education 2023-10-04 May us e Afrin 2 puffs 2 times a day for 3 days, and then stop using. It has very high dependancy potential and may lead to a rebound congestion effect. Instruction [id number] Patient Education 2023-10-04 - do f requent valsalva maneuvers throughout the day - apply warm compresses to the outer ear several times a day - use Afrin (oxymetazoline) nasal spray twice a day for 3 days Instruction [id number] Patient Education 2023-10-04 You ar e currently [...] counter medication options with your pharmacist. Instruction [id number] Patient Education 2023-10-04 Nasal saline rinse/spray 3-4 times per day Instruction [id number] Patient Education 2023-10-04 If you r condition [...] for follow up care as instructed. Instruction [id number] Patient Education 2023-10-04 Please use over the counter cough remedies, discuss the best options with your pharmacist. Instruction [id number] Patient Education 2023-10-04 Please take prednisone/Medrol mark [...] Code Text Date Instructio n Data Instruction [id number] Patient Education 2023-10-04 Recomm end follow up with PCP in 7-10 days if still not better. Instruction [id number] Patient Education 2023-10-04 May us e Afrin 2 puffs 2 times a day for 3 days, and then stop using. It has very high dependancy potential and may lead to a rebound congestion effect. Instruction [id number] Patient Education 2023-10-04 - do f requent valsalva maneuvers throughout the day - apply warm compresses to the outer ear several times a day - use Afrin (oxymetazoline) nasal spray twice a day for 3 days Instruction [id number] Patient Education 2023-10-04 You ar e currently [...] counter medication options with your pharmacist. Instruction [id number] Patient Education 2023-10-04 Nasal saline rinse/spray 3-4 times per day Instruction [id number] Patient Education 2023-10-04 If you r condition [...] for follow up care as instructed. Instruction [id number] Patient Education 2023-10-04 Please use over the counter cough remedies, discuss the best options with your pharmacist. Instruction [id number] Patient Education 2023-10-04 Please take prednisone/Medrol mark [...]
--- OUTSIDE RECORDS SUMMARY | 2025-02-13 09:12 | XMS_ITS | Clinical Summary ---
Author Organization [facility] Address [address] [place] [address] Care Team Providers Care Health And Safety Representative Name Role Phone Unavailable Primary Care Provider Unavailabl e Source Comments [facility],non-owned Affiliates and Associated Physician Practices is amultiple site organization consisting of ambulatory clinics and hospital sitesin [place], [place], [place] and [place]. This disclosure is being madepursuant to the Care Everywhere program and may not contain all information available regarding this patient. Last updated 18.ZUCHEM Allergies No known active allergies Medications * [...]
--- OUTSIDE RECORDS SUMMARY | 2025-02-13 09:12 | XMS_ITS | Continuity of Care Document ---
Author Organization [facility] Address [address] [place] [address] [address] [place] [address] Phone Care Team Providers Care Flake Drier Name Role Phone Margarita Rodriguez Unavailable Unavailable Advance Directives Directive Yes / No Effective Date File Name No Information Encounters Encounter Description Practice Location Reason(s) For Visit Diagnoses Date Provider Providers Copied on Encounter [facility], [address] [place] [address] [address], [place], [place], [id number], [place] tel:[phone] [facility] [place] No Information 4-200 5 Jennifer Avila. [address] [facility] , [address], [place], [address], [place]. tel:[phone] Family History Family Member Type Diagnosis Age [...]
--- OUTSIDE RECORDS SUMMARY | 2025-02-13 09:12 | XMS_ITS | CLINICAL SUMMARY ---
Author Name Krishna Avila Address [address] [place] [address] Phone Organization [facility] Address [address] [place] [address] Phone Care Team Providers Care Process Control Tech Name Role Phone Krishna Avila Unavailable [phone] MarkEssencekarinnataly Unavailable [facility] Unavailable [phone] SOCIAL HISTORY Social History Observation Description Dates Observed Sex Male [id number] None recorded VITAL SIGNS BMI Body Mass Index Percentile Date Systolic Diastolic Head Circumference Head Circumference Percentile Height Oxygen Concentration Pulse Pulse Oximeter Respiratory Rate Temperature Weight Ktiovx-wpr-ywrajb Percentile 23.8 71 kg/m 2 Unknown 121 122 mmHg 77 mmHg Unknown Unknown [...] active Acute upper respiratory infection, unspecified 2 3902341 active Other specified symptoms and signs involving the circulatory and respiratory systems 57650103 active COVID-19 14978307 active Acute cough 78050752 active Other specified symptoms and signs involving the circulatory and respiratory systems 05881621 active Acute upper respiratory infection, unspecified 2 4278965 active Influenza due to unidentifie d influenza virus with other manifestations No date recorded undefined Fever, unspecified 39013746 active Other fatigue 91649227 active Headache, unspecified 82337356 active FAMILY HISTORY ENCOUNTERS Encounter Performer Location E/M Code E/M Label Date Diagnosi s visit [facility] [address] No E/M display label 48784369 Acute upper respiratory infection, unspecified visit [facility] [address] No E/M display label 72408386 Influenza due to unidentified influenza virus with other manifestations visit [facility] [address] No E/M display label 60599432 Fever, unspecified visit [facility] [address] No E/M display label 42937422 Other fatigue visit Krishna Avila [facility] [address] No E/M display label 02512361 Headache, unspecified LAB RESULTS Overall Code Overall Text [Code] Result Type (Code) Result Text Result Value Relevant Reference Range Date Lab Name [facility] No overall lab code recorded Covid-19 Antigen Test CARD [88629] 19830-9 Covid-19 Antigen Test CARD Negative Normal = Negative 570506 [facility] [place] [address] [place] [address] No overall lab code recorded Flu Test (Binax, QuickVue ) [91220] No result type code recorded Flu A Negative Normal = Negative 461244 [facility] [place] [address] [place] [address] 0000 No overall lab code recorded Flu Test (Binax, QuickVue ) [61427] No result type code recorded Flu B Negative Normal = Negative 186644 [facility] [place] [address] [place] [address] 0000 No overall lab code recorded Rapid Strep [18204] No result type code recorded Rapid Strep Negative Normal = Negative 144425 [facility] [place] [address] [place] [address] 0000 No overall lab code recorded Covid-19 Antigen Test CARD [76151] QTY(1) No result type code recorded Covid-19 Antigen Test CARD [03740] QTY(1) No range recorded 542916 21 [facility] [place] [address] [place] [address] No overall lab code recorded Rapid Strep [44298] QTY(1) [Complet ed by: Naima Flores] No result type code recorded Rapid Strep [89488] QTY(1) [Complet ed by: Naima Flores] No range recorded 485591 [facility] [place] [address] [place] [address] 0000 INSURANCE PROVIDERS (PAYERS) Payer name Policy type / Coverage type Policy ID Covered alliance party ID Insurance type Policy Riggs Evino [id number] ? Primary Brent Marsh PROCEDURE NOTE Date Name Status Summary Text (N otes) 65178704 Covid-19 Antigen Test CARD Completed C ovid-19 Antigen Test CARD [91257] QTY(1) 61187144 Flu Test (Binax, QuickVue) Completed F sergey Test (Binax, QuickVue) [90094] QTY(2) [Completed by: Naima Flores] 37517804 Rapid Strep Completed Rapid Strep [87 880] QTY(1) [Completed by: Naima Flores] 61897476 31756 Completed Flu Test (Binax , QuickVue) None recorded None recorded None recorded None recorde d 02295661 Covid-19 Antigen Test CARD Completed C ovid-19 Antigen Test CARD [74188] QTY(1) 87102783 Flu Test (Binax, QuickVue) Completed F sergey Test (Binax, QuickVue) [27123] QTY(2) [Completed by: Naima Flores] 40110416 Rapid Strep Completed Rapid Strep [87 880] QTY(1) [Completed by: Naima Flores] PROCEDURES Date Name Status Summary Text (N otes) 41384147 Covid-19 Antigen Test CARD Completed C ovid-19 Antigen Test CARD [12497] QTY(1) 52554743 Flu Test (Binax, QuickVue) Completed F sergey Test (Binax, QuickVue) [91069] QTY(2) [Completed by: Naima Flores] 39451983 Rapid Strep Completed Rapid Strep [87 880] QTY(1) [Completed by: Naima Flores] 08145027 09277 Completed Flu Test (Binax , QuickVue) None recorded None recorded None recorded None recorde d 88216601 Covid-19 Antigen Test CARD Completed C ovid-19 Antigen Test CARD [74489] QTY(1) 11896280 Flu Test (Binax, QuickVue) Completed F sergey Test (Binax, QuickVue) [75112] QTY(2) [Completed by: Naima Flores] 61243149 Rapid Strep Completed Rapid Strep [87 880] [...] Code Text Date Observatio n Data Instruction 045035310 Patient Education 2024-12-15 Recomm end follow up with PCP in 7-10 days if still not better. Instruction [id number] Patient Education 2024-12-15 You ar e currently [...] counter medication options with your pharmacist. Instruction 268269092 Patient Education 2024-12-15 Your t est for COVID-19 was negative today. You have been given education sheets with detailed information on self and follow up care. If you have worsening symptoms, please call 911. Instruction 424497150 Patient Education 2024-12-15 Nasal saline rinse/spray 3-4 times per day Instruction 178793744 Patient Education 2024-12-15 If you r condition [...] for follow up care as instructed. Instruction 150883048 Patient Education 2024-12-15 Please use over the counter cough remedies, discuss the best options with your pharmacist. Observation 07919-6 Covid-19 Antigen Test CARD None specified No [...] active Acute upper respiratory infection, unspecified 2 4187042 active Other specified symptoms and signs involving the circulatory and respiratory systems 20231004 active COVID-19 95978810 active Acute cough 17874208 active Other specified symptoms and signs involving the circulatory and respiratory systems 20241006 active Acute upper respiratory infection, unspecified 2501025 active Influenza due to unidentifie d influenza virus with other manifestations No date recorded undefined Fever, unspecified 20241218 active Other fatigue 90529854 active Headache, unspecified 20241218 active * Vitals: BMI Body Mass Index Percentile Date Systolic Diastolic Head Circumference Head Circumference Percentile Height Oxygen Concentration Pulse Pulse Oximeter Respiratory Rate Temperature Weight Pewihj-ema-vtwblu Percentile 23.8 71 kg/m 2 Unknown 32629 121 122 mmHg 77 mmHg Unknown Unknown [...] Code Text Date Observatio n Data Instruction 204473571 Patient Education 2024-12-15 Recomm end follow up with PCP in 7-10 days if still not better. Instruction 793443067 Patient Education 2024-12-15 You ar e currently [...] counter medication options with your pharmacist. Instruction 757139639 Patient Education 2024-12-15 Your t est for COVID-19 was negative today. You have been given education sheets with detailed information on self and follow up care. If you have worsening symptoms, please call 911. Instruction 724963131 Patient Education 2024-12-15 Nasal saline rinse/spray 3-4 times per day Instruction 382607256 Patient Education 2024-12-15 If you r condition [...] for follow up care as instructed. Instruction 730965611 Patient Education 2024-12-15 Please use over the counter cough remedies, discuss the best options with your pharmacist. Observation 98207-2 Covid-19 Antigen Test CARD None specified No Observation data available for this record Observation Flu Test (Binax, QuickVue) None specified No Observation data available for this record Observation Rapid Strep None specified No Obser vation data available for this record * Lab Results: Overall Code Overall Text [Code] Result Type (Code) Result Text Result Value Relevant Reference Range Date Lab Name [facility] No overall lab code recorded Covid-19 Antigen Test CARD [89499] 31258-6 Covid-19 Antigen Test CARD Negative Normal = Negative 786507 [facility] [place] [address] [place] [address] 0000 No overall lab code recorded Flu Test (Binax, QuickVue ) [15523] No result type code recorded Flu A Negative Normal = Negative 429265 [facility] [place] [address] [place] [address] No overall lab code recorded Flu Test (Binax, QuickVue ) [91187] No result type code recorded Flu B Negative Normal = Negative 105371 [facility] [place] [address] [place] [address] 0000 No overall lab code recorded Rapid Strep [56932] No result type code recorded Rapid Strep Negative Normal = Negative 036468 [facility] [place] [address] [place] [address] 0000 No overall lab code recorded Covid-19 Antigen Test CARD [04815] QTY(1) No result type code recorded Covid-19 Antigen Test CARD [46486] QTY(1) No range recorded 250886 [facility] [place] [address] [place] [address] 0000 No overall lab code recorded Rapid Strep [12154] QTY(1) [Complet ed by: Naima Flores] No result type code recorded Rapid Strep [22505] QTY(1) [Complet ed by: Naima Flores] No range recorded 929023 [facility] [place] [address] [place] [address] 0000 * Radiology Results: Overall Code Overall Text [Code] Result Type (Code) Result Text Result Value Relevant Reference Range Date Lab Name [facility] None recorded None recorded None recorded None [...] Code Text Date Instructio n Data Instruction [id number] Patient Education 2024-12-15 Recomm end follow up with PCP in 7-10 days if still not better. Instruction [id number] Patient Education 2024-12-15 You ar e currently [...] counter medication options with your pharmacist. Instruction [id number] Patient Education 2024-12-15 Your t est for COVID-19 was negative today. You have been given education sheets with detailed information on self and follow up care. If you have worsening symptoms, please call 911. Instruction [id number] Patient Education 2024-12-15 Nasal saline rinse/spray 3-4 times per day Instruction [id number] Patient Education 2024-12-15 If you r condition [...] for follow up care as instructed. Instruction 626664162 Patient Education 2024-12-15 Please use over the counter cough remedies, discuss the best options with your pharmacist. Observation 32093-7 Covid-19 Antigen Test CARD None specified No [...]
--- OUTSIDE RECORDS SUMMARY | 2025-02-13 09:12 | XMS_ITS | Clinical Summary ---
Author Organization [facility] Address [address] [place] [address] Care Team Providers Care Cryptozoologist Name Role Phone Unavailable Primary Care Provider [...]
--- OUTSIDE RECORDS SUMMARY | 2025-02-13 09:12 | XMS_ITS | Continuity of Care Document ---
Author Organization [facility] Address [address] [place] [address] Phone Care Team Providers Care Robotics Mechanic Name Role Phone Administrative, Provider Unavailable Unavail able Procedures Procedure Date Work/Medical Disability Exam RJR 2011 Advance Directives Directive Yes / No Effective Date File Name No Information Encounters Encounter Description Practice Location Reason(s) For Visit Diagnoses Date Provider Providers Copied on Encounter [facility], [address] [place], [place] [address] [place] [address], [id number], tel:[phone] [facility] [employer] [facility] DEGEN 2 Administrative Provider. [address] [place] [address], [place] [address], [place], [place], [address] [place] [address], . tel:[phone] Referring Provider: Markell Aceves, [address] [place] [address] [address] [facility], [place], [address] . tel:[phone] Family History Family Member Type Diagnosis Age At Onset No Information Payers Payer name Insurance type Covered libertarian ID Authorkarlaa titameka(s) [employer] [id number] Social History Type Description Quantity Date [...]
--- OUTSIDE RECORDS SUMMARY | 2025-02-13 09:12 | XMS_ITS | Data Portability ---
Author Organization [place] [facility] [employer], Main Office Address [address] [place] [address] Assessment Encounter Date Assessment Date Assessment LastModified [...] DO Not Attach Compendium, Do Not Delete/merge, 07071 13:56:37 knee aspiration/ injection (PROC) 2023 024 In-Office Order, Internal Use Only DO Not Attach Compendium DO Not Attach Compendium, Do Not Delete/merge, 95539 14:01:15 injection/a spiration joint/bursa (PROC) - in office procedure, administere d by provider 2023 024 In-Office Order, Internal Use Only DO Not Attach Compendium DO Not Attach Compendium, Do Not Delete/merge, 34050 4 14:56:27 injection/a spiration joint/bursa (PROC) - in office procedure, administere d by provider 2022 023 [email or web address] In-Office Order, Internal Use Only DO Not Attach Compendium DO Not Attach Compendium, Do Not Delete/merge, 68011 3 11:35:36 Surgeries None recorded. Imaging XR, knee 2023 024 [facility] [place], [address], [place], [address], 4 15:35:51 Medication Orders ORTHOVISC 30 mg/2 mL intra-artic ular syringe 2023 024 [facility], [address] [place], [place], [id number], 4 16:53:47 ORTHOVISC 30 mg/2 mL intra-artic ular syringe 2023 024 [facility] #84644, [address] [facility], [place], [place], [id number], 4 14:42:51 ORTHOVISC 30 mg/2 mL intra-artic ular syringe 2023 024 [facility] #34830, [address] [place], [place], [id number], 4 16:10:57 Kenalog 10 mg/mL suspension for injection 2022 023 [facility]01117, [address] [facility], [place], [place], [id number], 4 14:50:22 prednisone 10 mg tablets in a dose pack 2022 023 [facility] #20051, [address], [place], [id number], 4 14:50:44 ropivacaine (PF) 5 mg/mL (0.5 %) injection solution 2022 023 Not available 4 14:50:56 Patient TargetsNo targets recorded. Patient InstructionsNo instructions recorded. Reason for Referral None Reported. Results Created Date Observation Date Name Description Value Unit Range Abnormal Flag Note LastModifiedBy Organization Detail LastModifiedTime 06/23/20 24 XR, knee No observ ation record ed. [facility] [place] [address], [place], [address], 06/23/2024 15:35:50 Result Notes None recorded. Problems Name Problem SNOMED Code Status Onset Date Resolution Date Notes Provider Name and Address Organization Details Recorded Time Chondromal acia of right patella 1346198808945 9108 Active 2021 Not Available [facility] 3 13:30:13 Pain of right knee joint 3011674885204 00 Active 2022 Mary allen, [place] [facility] [employer] 3 11:21:04 Osteoarthr itis of right knee joint 2741173441009 00 Active 2022 RYAN Azar [address] [facility], [facility] [address], [place], [address] , [place] [facility] [employer] 3 12:17:02 Problem Notes None recorded. Procedures Surgical History Date Name Laterality Status Provider Name and Address Organization Details Recorded Time repair of meniscus completed Not Available [facility] 01/23/2023 13:29:48 Imaging Results Imaging Date Name Status LastModified by Organiz ation Details LastModified Time 06/23/2024 XR, knee completed [facility] [place] [address], [place], [address], 06/23/2024 15:35:50 Procedure Notes None recorded. Medical [...] 20 mg by injection route. 06/23 completed [facility]: 0003- 0494- 20 Not Available Not Available [...] 20 mg by injection route. 06/23 completed [facility] [address]- 01 Not Available Not Available Not Available Vitals Date Recorded Body mass index (BMI) Body height Body weight Provider Name and Address Organization Details Last Updated DateTime 11/13/2022 26.4 kg/m2 175.26 cm 03872.03 g Not Available [facility] 01/23/2023 13:29:57 Date Recorded Body height Body mass index (BMI) Body weight Provider Name and Address Organization Details Last Updated DateTime 09/09/2023 175.26 cm 26.4 kg/m2 38696.03 g Mary Jungmons [employer] 09/09/2023 11:19:59 Date Recorded Body height Body mass index (BMI) Body weight Provider Name and Address Organization Details Last Updated DateTime 06/23/2024 175.26 cm 25.8 kg/m2 22718.66 g [employer] [facility] 06/23/2024 14:49:10 Date Recorded Body height Body mass index (BMI) Body weight Provider Name and Address Organization Details Last Updated DateTime 07/07/2024 175.26 cm 25.8 kg/m2 42055.66 g [employer], MANAGER STORY [facility] 07/07/2024 13:59:44 Date Recorded Body height Body mass index (BMI) Body weight Provider Name and Address Organization Details Last Updated DateTime 2024 175.26 cm 25.1 kg/m2 68988.7 g [employer], MANAGER STORY [facility] 2024 13:54:54 Social History Question Answer Notes LastModified by Organizat ion Details LastModified Time Tobacco Smoking Status Current Every Day Smoker Not Available [facility] 01/23/2023 13:29:47 What Is Your Level Of [...] SNOMED-CT Code Diagnosis ICD10 Code Diagnosis Note [id number] [facility] [place] [address] [place] [address] 10/02/2022 00:00:00 10/02/2022 14:27:11 [id number] [facility] [place] [address] [place] [address] 11/13/2022 00:00:00 11/13/2022 14:29:52 [id number] RYAN Azar [facility] [place] [address] [place] [address] 09/09/2023 11:15:42 09/09/2023 11:37:47 Chondromalacia of right patella 1636062380 6790682 M22.41 Pain of ri ght knee joint 4732526312 97234 M25.561 Osteoarthr itis of right knee joint 3545932082 62832 M17.11 [id number] RYAN Azar [facility] [place] [address] [place] [address] 06/23/2024 14:36:04 06/23/2024 15:17:42 Chondromalacia of right patella 1848000285 3377251 M22.41 Osteoarthr itis of right knee joint 5559011406 20290 M17.11 Pain of ri ght knee joint 9017355188 59033 M25.050 [id number] RYAN Azar [facility] [place] [address] [place] [address] 07/07/2024 13:57:15 07/07/2024 14:52:46 Chondromalacia of right patella 1887439707 5055641 M22.41 Osteoarthr itis of right knee joint 6567411860 51416 M17.11 Pain of ri ght knee joint 3639000717 52707 M25.267 [id number] RYAN Azar [facility] [place] [address] [facility] [address] [place] [address] 2024 13:51:53 2024 14:15:46 Chondromalacia of right patella 1498049600 8058415 M22.41 Osteoarthr itis of right knee joint 9824753280 48432 M17.11 Pain of ri ght knee joint 8588180937 51740 M25.561 Health Concerns Section Related Observation LastModified by Organization Detai ls LastModified Time None Recorded Concern Status LastModified by Organization Details LastModified Time None Recorded Advance Directives Directive None Recorded Payers Encounter Date Sequence Insurance Name Policy Number Policy Riggs Covered Member ID Riggs Member ID Guarantor Name 09/09/2023 1 [place] Brent Landaverde Yarelis [id number] 1 Brent Landaverde Yarelis 06/23/2024 1 [place] Brent Landaverde Yarelis [id number] 1 Brent Landaverde Yarelis 07/07/2024 1 [place] Brent Landaverde Yarelis [id number] 1 Brent Landaverde Yarelis 2024 1 [place] Brent Antonler [id number] 1 Brent Santoyo Notes Date Note Type Note Provider Name and Address Organization Details Recorded Time 11/13/2022 text/html KneeReported bypatient.Location:r ight; anterior Quality:aching; burning; throbbing Severity:moderate Duration:continuous since onset Timing:chronic; recurrent; intermittent episodes lasting: Context:cannot identify Alleviating Factors:lying down; rest; elevation; stretching Aggravating Factors:twisting; bending/squatting Associated Symptoms:swelling;wa rmth;popping/clickin g Previous PT:helped a little Not Available [facility] 11/13/2022 14:29:52 09/09/2023 text/html [...] RYAN Azar [address], [place], [address], [facility] [place] [facility] 09/09/2023 12:21:19 06/23/2024 text/html patient returns we [...] patient. Hugo Loza, [address], [place], [address], [facility] 06/23/2024 15:36:25 07/07/2024 text/html Patient returns for [...] RYAN Azar [address], [place], [address], [employer] 07/07/2024 14:17:37 2024 text/html The patient retu [...] RYAN Azar [address], [place], [address], [facility] 2024 14:13:05
== END 2025-02-13 09:09 | disposition home or self-care (01) ==
LOC: ANHLAB 09:10
PROVIDERS: PCP Internal Medicine; Visit Provider Nurse Practitioner
DX: R19.7 Diarrhea, unspecified (principal)
CPT/HCPCS: 87177; 87209

== ENCOUNTER 2025-04-15 10:25 | Outpatient (CLI) | payer MEDICARE, SELFPAY ==
--- NOTE | ~2025-04-15 | MR_ITS ---
MRI of the cervical spine Clinical History: Cervicalgia Technique: Axial T2-weighted and gradient images, and sagittal T1-weighted, T2-weighted, and STIR kush ges were acquired. Findings: There is no fracture of the cervical spine. There is 3 mm retrolisthesis of C5 over C6. No suspicious bone marrow signal abnormality seen. At C2-C3, there is left facet arthropathy. No disc bulge or herniation. No spinal canal stenosis, cor d compression, or definite neural foraminal narrowing. At C3-C4, there is disc osteophyte complex with minimal canal stenosis but no rishabh cord compression. There is mild to moderate bilateral neural foraminal narrowing. At C4-C5, there is degenerative disc narrowing with disc osteophyte complex, most prominent at the ri ght paracentral to right foraminal region. There is associated right neural foraminal narrowing. Left neural foramen probably preserved. There is minimal flattening of the ventral aspect of the right si de of the spinal cord by disc osteophyte complex. At C5-C6, there is degenerative disc narrowing with minimal disc bulge. There is bilateral neural for aminal narrowing. At C6-C7, there is disc bulge, especially the left paracentral to left foraminal region, with left ne ural foraminal narrowing. No canal stenosis, cord compression, or right neural foraminal narrowing. No abnormal signal seen in the spinal cord. Impression: Moderate multilevel degenerative spondylosis, as detailed above. 3 mm retrolisthesis of C5 over C6. Reviewed, dictated and finalized at [place] [facility]. Impression: Moderate multilevel degenerative spondylosis, as detailed above. 3 mm retrolisthesis of C5 over C6.
== END 2025-04-15 10:26 | disposition home or self-care (01) ==
PROVIDERS: PCP Internal Medicine; Visit Provider Clinical Nurse Specialist
DX: M47.812 Spondylosis without myelopathy or radiculopathy, cervical region (principal); M43.12 Spondylolisthesis, cervical region
CPT/HCPCS: 72141

== ENCOUNTER 2025-07-23 15:46 | Emergency (ER) | payer MEDICARE, SELFPAY ==
--- OUTSIDE RECORDS SUMMARY | 2005-06-07 10:00 | XMS_ITS | Continuity of Care Document ---
Author Organization [facility] Address [address] [place] [address] [address] [place] [address] Phone Care Team Providers Care Acute Care Physical Therapist Name Role Phone Margarita Rodriguez Unavailable Unavailable Advance Directives Directive Yes / No Effective Date File Name No Information Encounters Encounter Description Practice Location Reason(s) For Visit Diagnoses Date Provider Providers Copied on Encounter [facility], [id number] [place] [address] [address], [place], [place], [id number], [place] tel:[phone] [facility] [place] No Information 4-200 5 Jennifer Avila. [address] [facility] , [address], [place], [address], [place]. tel:[phone] Family History Family Member Type Diagnosis Age At Onset No Information Payers Payer name Insurance type Covered green party ID Authoriza tion(s) No Information Social History Type Description Quantity Date Captured Comments Sex Male Smoking Status No Information Chief Complaint And Reason For Visit No Information Reason For Referral Reason For Referral No Information History Of Present Illness Encounter Date Complaint History Of Prese nt Illness No Information Functional Status Date Functional Assessmen t No Information Instructions Date Instruction Additional Infor mation No Information Assessments Type Assessment Date No Information Patient Care Teams Name Effective Dates (start - stop) Status Members No Information
--- OUTSIDE RECORDS SUMMARY | 2012-10-15 04:00 | XMS_ITS | Continuity of Care Document ---
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 [address] [place] [address], [place] [address], [place], [place], [address] [place] [address], . tel:[phone] Referring Provider: Markell Aceves, [address] [place] [address] [address] [facility] [place], [place], [address] . tel:[phone] Family History Family Member Type Diagnosis Age At Onset No Information Payers Payer name Insurance type Covered republican ID Authorkarlaa titameka(s) [facility] [id number] Social History Type Description Quantity Date Captured [...]
--- NOTE | ~2025-07-23 | CT_ITS ---
EXAMINATION: CT abdomen pelvis w con, 07/23/2025 21:30 CDT HISTORY: lower abd pain, diarrhea COMPARISON: No comparisons available. TECHNIQUE: CT scan of the abdomen and pelvis was performed with contrast. Isovue 300, 92cc injected IV. One or more of the following dose reduction techniques were used: automated exposure control, adjustment of the mA and/or kV according to patient size, use of iterative reconstruction technique. Unless otherwise stated, incidental findings do not require dedicated follow up imaging FINDINGS: CT abdomen: LUNG BASES: Lung bases demonstrate basilar areas of linear atelectatic changes. LIVER: Subcentimeter probable liver cysts. The main portal vein is patent. Mild intrahepatic biliary duct dilatation. SPLEEN: Unremarkable, no splenomegaly. KIDNEYS: Right Kidney: Right kidney simple appearing renal cyst along the superior pole 3 x 4 cm. Left Kidney: Left kidney simple appearing renal cysts the largest midpole 4 x 4 centimeters. ADRENAL GLANDS: Unremarkable. PANCREAS: Unremarkable. GALLBLADDER/BILIARY: Post cholecystectomy. STOMACH AND ESOPHAGUS: Visualized stomach and esophagus within normal limits. BOWEL/MESENTERY: Moderate fecal content, no colitis or diverticulitis. Appendix normal. Mesentery normal. Small bowel normal. ADENOPATHY/RETROPERITONEUM: No lymphadenopathy. AORTA/VASCULATURE: Normal caliber aorta. FREE FLUID OR FREE AIR: No free fluid.. CT pelvis: SOLID ORGANS/REPRODUCTIVE: Unremarkable. BLADDER: Mild distention of the bladder. OSSEOUS STRUCTURES: No acute osseous abnormality.No suspicious lesions. OVERLYING SOFT TISSUES: Unremarkable. IMPRESSION: 1. No etiology identified to explain the patient's symptoms. Follow-up suggested if symptoms persist. Reviewed, dictated and finalized at location A. IMPRESSION: 1. No etiology identified to explain the patient's symptoms. Follow-up suggeste d if symptoms persist.
--- OUTSIDE RECORDS SUMMARY | 2025-07-23 15:48 | XMS_ITS | Clinical Summary ---
Author Organization [facility] Address [address] [place] [id number] Care Team Providers Care Football Pad Repairer Name Role Phone Unavailable Primary Care Provider [...] 11:08 AM CDT Height 175.3 cm (5' 9) 09/08/2012 11:08 AM CDT Body Mass Index 24.37 09/08/2012 11:08 AM CDT Plan of Treatment Health Maintenance Due Date Last Done Comments Colorectal Cancer Screening Colonoscopy (10 Years) 1955 Hepatitis C 1973 DTaP, Tdap and Td Vaccines ( 1 - Tdap) 1974 Pneumococcal Vaccine: 50+ Ye ars (1 of 1 - PCV) 2005 Zoster Vaccines (1 of 2) 2005 COVID-19 Vaccine ( - 2023-2 5 season) 2024 RSV Immunization or 60+ Years (1 [...]
--- OUTSIDE RECORDS SUMMARY | 2025-07-23 15:48 | XMS_ITS | Patient Health Record ---
Author Organization [facility] Address [address] [address] Care Team Providers Care Auto Inspection Specialist Name Role Phone Adilson Chacon Unavailable [phone] Reason For Referral No Information Plan Of Treatment No Information
--- OUTSIDE RECORDS SUMMARY | 2025-07-23 15:48 | XMS_ITS | Clinical Summary ---
Author Organization [facility] Address [address] [place] [address] Care Team Providers Care Extension Professor Name Role Phone Unavailable Primary Care Provider Unavailabl e Source Comments [facility],non-owned Affiliates and Associated Physician Practices is amultiple site organization consisting of ambulatory clinics and hospital sitesin [place], [place], [place] and [place]. This disclosure is being madepursuant to the Care Everywhere program and may not contain all information available regarding this patient. Last updated 18.Sincerely Allergies No known active allergies Medications * Be aware that medications may not be up to date on this document. Alwaysverify current medications with the patient. VANCOMYCIN HCL PO Active METRONIDAZOLE PO Act mary OXYCODONE HCL PO Act mary DOCUSATE SODIUM PO Active AMOXICILLIN ER PO Active aspirin (ASPIRIN) 81 MG tablet Take 81 mg by mouth once daily Active PANTOPRAZOLE SODIUM PO Active Immunizations Immunization Administration Dates Next Due INFLUENZA VACCINE, HIGH-DOSE , QUADR. (FLUZONE HIGH-DOSE QUADRIVALENT; 65Y+), 0.7 ML (HD-IIV4) 09/14/2020 Social History Tobacco Use Types Packs/Day Years Used Date Smoking Tobacco: Former Smokeless Tobacco: Never Sex and Gender Information Value Date Recorded Sex Assigned at Not on file Legal Sex Male 7:02 AM CDT Gender Identity Not on file Sexual [...] 10:57 AM CDT Height 175.3 cm (5' 9) 09/20/2017 10:57 AM CDT Body Mass Index [...] COLON CA SCREENING 1955 LIPID TESTING 1955 HEPATITIS C SCREENING 07/09/1973 DTAP/TDAP/TD VACCINES (1 - Tdap) 1974 PNEUMOCOCCAL VACCINE 50+ (1 of 1 - PCV) 2005 ZOSTER VACCINE (1 of 2) 2005 AAA SCREENING 2020 COVID-19 VACCINE (1 - 2023-2 5 season) 2024 DEPRESSION SCREENING 11/25/2024 INFLUENZA VACCINE (#1) 2025 09/14/2020 Respiratory Syncytial Virus (RSV) Vaccine Pt: or [...] on patient's age to complete this topic Insurance [facility] MEDICARE [facility] [employer] Address: [address] [place] [address]
[2025-07-23 16:16] VITALS: BP 125/66; PULSE 94; RESP 16; TEMP 36.8; O2SAT 97
--- NOTE | 2025-07-23 17:33 | ED.NAVMDI ---
HPI - Nausea/Vomiting/Diarrhea General Chief complaint: Nausea/Vomiting/Diarrhea Stated complaint: cramps and diarrhea x2 weeks Time Seen by Provider: 07/23/25 17:33 Focused HPI: Patient is a 70-year-old male who presents the ED with report of lower abdominal pain. Reports having intermittent lower abdominal cramping for the past 2 weeks. Has history of IBS and is prescribed Bentyl. States this usually helps with cramping, but has not been improving sx's lately. Has had diarrhea over the past 3 days, but reported having multiple episodes of diarrhea today. Denies rectal bleeding, melena, fevers, N/V, hx of diverticulitis. GENERAL: Well-appearing, well-nourished, and in no acute distress. HEAD: Normocephalic, atraumatic. CHEST: Clear to auscultation. ?No respiratory distress. HEART: Regular rate and rhythm.? ABD: Mild diffuse tenderness throughout lower abdomen. No rebound. Nondistended. Normoactive BS. NEURO: ?Alert and oriented x3. Patient screened in triage and initial orders placed.? ?Additional care and disposition to be based upon?diagnostic testing and treatment. Source: patient Mode of arrival: ambulatory Limitations: no limitations Related Data Home Medications ?Medication ?Instructions ?Recorded ?Confirmed ?Last Taken ?Type rosuvastatin 10 mg tablet 5 mg PO DAILY 06/01/24 07/23/25 07/23/25 History sildenafil 50 mg tablet 50 mg PO DAILY PRN activity 06/01/24 07/23/25 Unknown History pantoprazole 40 mg tablet,delayed 40 mg PO QAM 08/20/24 07/23/25 07/23/25 History release finasteride 5 mg-tadalafil 5 mg 1 cap PO DAILY 01/28/25 07/23/25 07/23/25 History capsule Allergies Allergy/AdvReac Type Severity Reaction Status Date / Time No Known Allergies Allergy Verified 07/23/25 19:55 PMFSH Past Medical History Medical History Schatzki's ring GERD (gastroesophageal reflux disease) Abdominal pain Sepsis Prediabetes Hyperlipidemia BPH (benign prostatic hyperplasia) Irritable bowel syndrome Pancreatitis (~2016) C. difficile diarrhea (~2017) Surgical History Surgical History Hx of cholecystectomy (~2017) Family History Family History Father Hypertension Family history of lung cancer Cerebrovascular accident Social History Social History Smoking packs per day: 0.5 Smoking cigarettes per day: 10.0 Years smoked: 50 Smoking pack-years: 25.00 Smoking status: Current every day smoker Tobacco type: cigarettes Alcohol intake: never Substance use: never Substance use type: does not use Do You Feel Safe in your Home?: Yes Lack of Transportation: No Lack of Food: Never True Current Housing: I Have Housing Concerned About Future Housing: No Difficulty Paying Gas/Electric Bills: No Difficulty Paying for Meds: No Currently Unemployed: No Education: High School Diploma/GED Difficulty w/ Childcare or Family Care: No Living arrangements: alone Spiritual care concerns: No Course Vital Signs Vital signs: Vital Signs Temperature 98.2 F 07/23/25 16:16 Pulse Rate 94 07/23/25 16:16 Respiratory Rate 16 07/23/25 16:16 Blood Pressure 125/66 07/23/25 16:16 Pulse Oximetry 97 07/23/25 16:16 Oxygen Delivery Room Air 07/23/25 16:16 Temperature 97.3 F L 07/23/25 19:40 Pulse Rate 69 07/23/25 23:00 Respiratory Rate 15 07/23/25 23:00 Blood Pressure 116/79 07/23/25 23:00 Pulse Oximetry 97 07/23/25 23:00 Oxygen Delivery Room Air 07/23/25 19:29 MDM - Nausea/Vomiting/Diarrhea MDM Narrative Medical decision making narrative: MSE by KRUNAL in triage. Lab Data 07/23/25 20:07 07/23/25 20:07 Labs: Lab Results 07/23/25 07/23/25 Range/Units 20:06 20:07 WBC 11.7 H (4.5-10.0) K/mm3 RBC 4.33 L (4.6-6.20) M/mm3 Hgb 13.4 L (14.0-18.0) g/dL Hct 39.9 L (42.0-52.0) % MCV 92.1 (80-100) fl MCH 30.9 (26-34) pg MCHC 33.6 (32-36) g/dl RDW 13.2 (11.5-14.5) % Plt Count 348 (150-375) k/mm3 MPV 9.3 (7.4-10.4) fl Immature Gran % (Auto) 0.3 (0-0.5) % Neut % (Auto) 60.2 (45.5-73.1) % Lymph % (Auto) 31.5 (18.3-44.2) % [place] % (Auto) 6.9 (2.6-8.5) % Eos % (Auto) 0.8 (0-4.4) % Baso % (Auto) 0.3 (0.2-1.2) % Lymph # (Auto) 3.68 H (0.9-3.2) K/mm3 [place] # (Auto) 0.8 H (0.1-0.6) K/mm3 Eos # (Auto) 0.1 (0-0.3) K/mm3 Baso # (Auto) 0.0 (0.0-0.1) K/mm3 Abs Immat Gran (auto) 0.03 (0.00-0.031) K/mm3 Absolute Neuts (auto) 7.1 H (1.3-6.7) K/mm3 Absolute Nucleated RBC 0.000 (0.0-0.012) K/mm3 Nucleated RBC % 0.0 (0.0-0.2) % Sodium 136 L (137-145) mmol/L Potassium 3.9 (3.4-5.0) mmol/L Chloride 103 (98-107) mmol/L Carbon Dioxide 24 (22-30) mmol/L Anion Gap 9 (4-12) mmol/L BUN 18 (9-20) mg/dL Creatinine 1.17 (0.7-1.3) mg/dL Estim Creat Clear Calc 52 ml/min Estimated GFR > 60 (59 - ) Glucose 76 (65-110) mg/dL Lactic Acid 1.1 (0.7-2.0) mmol/L Calcium 9.6 (8.4-10.2) mg/dL Total Bilirubin 0.6 (0.2-1.3) mg/dL AST 32 (17-59) U/L ALT 18 (6-50) U/L Alkaline Phosphatase 79 (38-126) U/L Total Protein 7.2 (6.3-8.2) g/dL Albumin 4.5 (3.5-5.1) g/dL Lipase 91 (23-300) U/L Urine Color Yellow (Yellow) Urine Appearance Cloudy H (Clear) Urine pH 6.0 (5.0-9.0) Ur Specific [place] 1.007 (1.001-1.035) Urine Protein Negative (Negative) mg/dL Urine Glucose (UA) Negative (Negative) mg/dL Urine Ketones Negative (Negative) mg/dL Ur Blood (Man) Negative (Negative) Urine Nitrate Negative (Negative) Urine Bilirubin Negative (Negative) Urine Urobilinogen 0.2 (<2.0) mg/dL Leukocyte Esterase Rfl Negative (Negative) HARPAL/UL Urine RBC 0-2 (0-2) /hpf Urine WBC 0-5 (0-3) /hpf Ur Squamous Epith Cells None seen (Few) /hpf Urine Bacteria None seen /hpf Urine Casts 0-2 Discharge Plan Discharge Clinical Impression: Diarrhea Patient Disposition: Home Condition: Stable Instructions: Antibiotic Form, Acute Diarrhea (ED) Additional Instructions: You were seen in the emergency department for diarrhea. Please make sure you are drinking plenty of fluids. You can try avdi-tbb-nuodphj medicine such as Pepto-Bismol or Imodium. Return if you develop fevers severe abdominal pain or bloody diarrhea. Patient Language: Moldovan Prescriptions: No Action pantoprazole 40 mg tablet,delayed release (DR/EC) 40 mg PO QAM finasteride-tadalafil 5-5 mg capsule 1 cap PO DAILY Rx Instructions: administer on an empty stomach rosuvastatin 10 mg tablet 5 mg PO DAILY sildenafil 50 mg tablet 50 mg PO DAILY PRN (Reason: activity) Rx Instructions: administer 30 minutes to 4 hours before activity meclizine 25 mg tablet 25 mg PO BID PRN (Reason: dizziness) Qty: 30 0RF Follow-up/Referrals: Ignacio Encinas DO [Primary Care Provider, Internal Medicine] - 3 Days Referral Note: Diarrhea
[2025-07-23 19:29] VITALS: BP 134/82; PULSE 72; RESP 15; TEMP 36.3; O2SAT 96
--- NOTE | 2025-07-23 19:39 | ED.NAVMDI ---
HPI - Nausea/Vomiting/Diarrhea General Chief complaint: Nausea/Vomiting/Diarrhea <Gaurang Orta MD - Last Filed: 07/23/25 21:05> Stated complaint: cramps and diarrhea x2 weeks <Gaurang Orta MD - Last Filed: 07/23/25 21:05> Time Seen by Provider: 07/23/25 17:33 <Gaurang Orta MD - Last Filed: 07/23/25 21:05> Source: patient <Gaurang Orta MD - Last Filed: 07/23/25 21:05> Mode of arrival: ambulatory <Gaurang Orta MD - Last Filed: 07/23/25 21:05> Limitations: no limitations <Gaurang Orta MD - Last Filed: 07/23/25 21:05> History of Present Illness HPI Narrative: 70 YEARS OLD WHITE MALE DROVE HIMSELF TO THE EMERGENCY ROOM COMPLAINING OF ABDOMINAL PAIN BILATERALLY FOR THE LAST 2 WEEKS. PATIENT HAD SIMILAR SYMPTOMS INTERMITTENTLY SINCE 2017 AND USUALLY GETS BETTER ON DICYCLOMINE. THIS TIME DICYCLOMINE IS NOT WORKING. PATIENT REPORTS LOOSE STOOL AT LEAST 4 EPISODES OF PRIOR TO ARRIVAL TO THE EMERGENCY ROOM TODAY. DID NOT HAVE IT IN THE LAST FEW WEEKS. PATIENT DENIES ANY FEVER OR CHILLS. PATIENT REPORTED THE ABOVE SYMPTOM ASSOCIATED WITH BELCHING AND FEELING RUMBLING ABDOMEN. PATIENT DENIES AGGRAVATING OR RELIEVING FACTORS, HISTORY OF GERD, TINNITUS. PATIENT SMOKES CIGARETTES, DENIES DRINKING ALCOHOL OR USING DRUGS. <Gaurang Orta MD - Last Filed: 07/23/25 21:05> Related Data Home medications: Home Medications ?Medication ?Instructions ?Recorded ?Confirmed ?Last Taken ?Type rosuvastatin 10 mg tablet 5 mg PO DAILY 06/01/24 07/23/25 07/23/25 History sildenafil 50 mg tablet 50 mg PO DAILY PRN activity 06/01/24 07/23/25 Unknown History pantoprazole 40 mg tablet,delayed 40 mg PO QAM 08/20/24 07/23/25 07/23/25 History release finasteride 5 mg-tadalafil 5 mg 1 cap PO DAILY 01/28/25 07/23/25 07/23/25 History capsule <Gaurang Orta MD - Last Filed: 07/23/25 21:05> Allergies/Adverse reactions: Allergies Allergy/AdvReac Type Severity Reaction Status Date / Time No Known Allergies Allergy Verified 07/23/25 19:55 <Gaurang Orta MD - Last Filed: 07/23/25 21:05> Review of Systems Review of Systems: All systems reviewed & are unremarkable except as noted in HPI and below <Gaurang Orta MD - Last Filed: 07/23/25 21:05> PMFSH Past Medical History Medical History: Medical History Schatzki's ring GERD (gastroesophageal reflux disease) Abdominal pain Sepsis Prediabetes Hyperlipidemia BPH (benign prostatic hyperplasia) Irritable bowel syndrome Pancreatitis (~2017) C. difficile diarrhea (~2016) <Gaurang Orta MD - Last Filed: 07/23/25 21:05> Surgical History Surgical History: Surgical History Hx of cholecystectomy (~2016) <Gaurang Orta MD - Last Filed: 07/23/25 21:05> Family History Family History: Family History Father Hypertension Family history of lung cancer Cerebrovascular accident <Gaurang Orta MD - Last Filed: 07/23/25 21:05> Social History Social History: Social History Smoking packs per day: 0.5 Smoking cigarettes per day: 10.0 Years smoked: 50 Smoking pack-years: 25.00 Smoking status: Current every day smoker Tobacco type: cigarettes Alcohol intake: never Substance use: never Substance use type: does not use Do You Feel Safe in your Home?: Yes Lack of Transportation: No Lack of Food: Never True Current Housing: I Have Housing Concerned About Future Housing: No Difficulty Paying Gas/Electric Bills: No Difficulty Paying for Meds: No Currently Unemployed: No Education: High School Diploma/GED Difficulty w/ Childcare or Family Care: No Living arrangements: alone Spiritual care concerns: No <Gaurang Orta MD - Last Filed: 07/23/25 21:05> Exam Narrative: GENERAL APPEARANCE: WELL-DEVELOPED, WELL-NOURISHED SKIN: NORMAL COLOR HEAD: NORMOCEPHALIC, NONTRAUMATIC EYES: CLEAR CONJUNCTIVA ENT: OROPHARYNX NORMAL, EARS NORMAL, NOSE NORMAL NECK: SUPPLE, NONTENDER CHEST AND RESPIRATORY: AIRWAY PATENT, NO RESPIRATORY DISTRESS, NO ACCESSORY MUSCLE USE HEART: REGULAR RATE/RHYTHM ABDOMEN: SOFT, NONTENDER, NO ORGANOMEGALY, QUIET BOWEL SOUNDS VASCULAR: NORMAL PERIPHERAL PULSES, NORMAL CAPILLARY REFILL. MUSCULOSKELETAL: NORMAL RANGE OF MOTION, NONTENDER BACK NEUROLOGIC: ALERT AND ORIENTED ?3, DIRECT SUPPORT WORKER IS NORMAL TESTED, NO GROSS MOTOR DEFICIT <Gaurang Orta MD - Last Filed: 07/23/25 21:05> Course Course Emergency Course: ODETTE: Patient signed out pending CT abdomen pelvis. Prelim read did not reveal any acute findings outside of possible cystitis although that does not correlate his urinalysis or symptoms. Patient re-evaluated just comfortably in bed with stable vital signs. Abdominal exam is benign. Likely diarrheal illness/gastroenteritis. Patient educated on expected course given return precautions. Discharged. <Deangelo Bustillos MD - Last Filed: 07/23/25 23:36> Vital Signs Vital signs: Vital Signs Temperature 98.2 F 07/23/25 16:16 Pulse Rate 94 07/23/25 16:16 Respiratory Rate 16 07/23/25 16:16 Blood Pressure 125/66 07/23/25 16:16 Pulse Oximetry 97 07/23/25 16:16 Oxygen Delivery Room Air 07/23/25 16:16 Temperature 97.3 F L 07/23/25 19:40 Pulse Rate 69 07/23/25 23:00 Respiratory Rate 15 07/23/25 23:00 Blood Pressure 116/79 07/23/25 23:00 Pulse Oximetry 97 07/23/25 23:00 Oxygen Delivery Room Air 07/23/25 19:29 <Gaurang Orta MD - Last Filed: 07/23/25 21:05> Vital Signs Temperature 98.2 F 07/23/25 16:16 Pulse Rate 94 07/23/25 16:16 Respiratory Rate 16 07/23/25 16:16 Blood Pressure 125/66 07/23/25 16:16 Pulse Oximetry 97 07/23/25 16:16 Oxygen Delivery Room Air 07/23/25 16:16 Temperature 97.3 F L 07/23/25 19:40 Pulse Rate 69 07/23/25 23:00 Respiratory Rate 15 07/23/25 23:00 Blood Pressure 116/79 07/23/25 23:00 Pulse Oximetry 97 07/23/25 23:00 Oxygen Delivery Room Air 07/23/25 19:29 <Deangelo Bustillos MD - Last Filed: 07/23/25 23:36> MDM - Nausea/Vomiting/Diarrhea MDM Narrative Medical decision making narrative: PATIENT CAME WITH ABDOMINAL PAIN FOR 2 WEEKS, STARTED HAVING DIARRHEA THIS MORNING. VITAL SIGNS ARE STABLE PHYSICAL EXAMINATION SHOWING HYPERACTIVE BOWEL SOUNDS OTHERWISE INSIGNIFICANT DIFFERENTIAL DIAGNOSIS INCLUDE GASTROENTERITIS, DIARRHEA, ELECTROLYTE IMBALANCE, DEHYDRATION, COLITIS, ENTERITIS. BLOOD WORKUP TODAY INCLUDES CBC, CMP, LIPASE SHOWED WBC 11.7 OTHERWISE INSIGNIFICANT URINALYSIS SHOWED CT ABDOMEN AND PELVIS WITH IV CONTRAST SHOWED <Gaurang Orta MD - Last Filed: 07/23/25 21:05> Differential Diagnosis Differential diagnosis: Likely other ( ABOVE) <Gaurang Orta MD - Last Filed: 07/23/25 21:05> Lab Data Result diagrams: 07/23/25 20:07 07/23/25 20:07 <Gaurang Orta MD - Last Filed: 07/23/25 21:05> Labs: Lab Results 07/23/25 07/23/25 Range/Units 20:06 20:07 WBC 11.7 H (4.5-10.0) K/mm3 RBC 4.33 L (4.6-6.20) M/mm3 Hgb 13.4 L (14.0-18.0) g/dL Hct 39.9 L (42.0-52.0) % MCV 92.1 (80-100) fl MCH 30.9 (26-34) pg MCHC 33.6 (32-36) g/dl RDW 13.2 (11.5-14.5) % Plt Count 348 (150-375) k/mm3 MPV 9.3 (7.4-10.4) fl Immature Gran % (Auto) 0.3 (0-0.5) % Neut % (Auto) 60.2 (45.5-73.1) % Lymph % (Auto) 31.5 (18.3-44.2) % [place] % (Auto) 6.9 (2.6-8.5) % Eos % (Auto) 0.8 (0-4.4) % Baso % (Auto) 0.3 (0.2-1.2) % Lymph # (Auto) 3.68 H (0.9-3.2) K/mm3 [place] # (Auto) 0.8 H (0.1-0.6) K/mm3 Eos # (Auto) 0.1 (0-0.3) K/mm3 Baso # (Auto) 0.0 (0.0-0.1) K/mm3 Abs Immat Gran (auto) 0.03 (0.00-0.031) K/mm3 Absolute Neuts (auto) 7.1 H (1.3-6.7) K/mm3 Absolute Nucleated RBC 0.000 (0.0-0.012) K/mm3 Nucleated RBC % 0.0 (0.0-0.2) % Sodium 136 L (137-145) mmol/L Potassium 3.9 (3.4-5.0) mmol/L Chloride 103 (98-107) mmol/L Carbon Dioxide 24 (22-30) mmol/L Anion Gap 9 (4-12) mmol/L BUN 18 (9-20) mg/dL Creatinine 1.17 (0.7-1.3) mg/dL Estim Creat Clear Calc 52 ml/min Estimated GFR > 60 (59 - ) Glucose 76 (65-110) mg/dL Lactic Acid 1.1 (0.7-2.0) mmol/L Calcium 9.6 (8.4-10.2) mg/dL Total Bilirubin 0.6 (0.2-1.3) mg/dL AST 32 (17-59) U/L ALT 18 (6-50) U/L Alkaline Phosphatase 79 (38-126) U/L Total Protein 7.2 (6.3-8.2) g/dL Albumin 4.5 (3.5-5.1) g/dL Lipase 91 (23-300) U/L Urine Color Yellow (Yellow) Urine Appearance Cloudy H (Clear) Urine pH 6.0 (5.0-9.0) Ur Specific [place] 1.007 (1.001-1.035) Urine Protein Negative (Negative) mg/dL Urine Glucose (UA) Negative (Negative) mg/dL Urine Ketones Negative (Negative) mg/dL Ur Blood (Man) Negative (Negative) Urine Nitrate Negative (Negative) Urine Bilirubin Negative (Negative) Urine Urobilinogen 0.2 (<2.0) mg/dL Leukocyte Esterase Rfl Negative (Negative) HARPAL/UL Urine RBC 0-2 (0-2) /hpf Urine WBC 0-5 (0-3) /hpf Ur Squamous Epith Cells None seen (Few) /hpf Urine Bacteria None seen /hpf Urine Casts 0-2 <Gaurang Orta MD - Last Filed: 07/23/25 21:05> Lab Results 07/23/25 07/23/25 Range/Units 20:06 20:07 WBC 11.7 H (4.5-10.0) K/mm3 RBC 4.33 L (4.6-6.20) M/mm3 Hgb 13.4 L (14.0-18.0) g/dL Hct 39.9 L (42.0-52.0) % MCV 92.1 (80-100) fl MCH 30.9 (26-34) pg MCHC 33.6 (32-36) g/dl RDW 13.2 (11.5-14.5) % Plt Count 348 (150-375) k/mm3 MPV 9.3 (7.4-10.4) fl Immature Gran % (Auto) 0.3 (0-0.5) % Neut % (Auto) 60.2 (45.5-73.1) % Lymph % (Auto) 31.5 (18.3-44.2) % [place] % (Auto) 6.9 (2.6-8.5) % Eos % (Auto) 0.8 (0-4.4) % Baso % (Auto) 0.3 (0.2-1.2) % Lymph # (Auto) 3.68 H (0.9-3.2) K/mm3 [place] # (Auto) 0.8 H (0.1-0.6) K/mm3 Eos # (Auto) 0.1 (0-0.3) K/mm3 Baso # (Auto) 0.0 (0.0-0.1) K/mm3 Abs Immat Gran (auto) 0.03 (0.00-0.031) K/mm3 Absolute Neuts (auto) 7.1 H (1.3-6.7) K/mm3 Absolute Nucleated RBC 0.000 (0.0-0.012) K/mm3 Nucleated RBC % 0.0 (0.0-0.2) % Sodium 136 L (137-145) mmol/L Potassium 3.9 (3.4-5.0) mmol/L Chloride 103 (98-107) mmol/L Carbon Dioxide 24 (22-30) mmol/L Anion Gap 9 (4-12) mmol/L BUN 18 (9-20) mg/dL Creatinine 1.17 (0.7-1.3) mg/dL Estim Creat Clear Calc 52 ml/min Estimated GFR > 60 (59 - ) Glucose 76 (65-110) mg/dL Lactic Acid 1.1 (0.7-2.0) mmol/L Calcium 9.6 (8.4-10.2) mg/dL Total Bilirubin 0.6 (0.2-1.3) mg/dL AST 32 (17-59) U/L ALT 18 (6-50) U/L Alkaline Phosphatase 79 (38-126) U/L Total Protein 7.2 (6.3-8.2) g/dL Albumin 4.5 (3.5-5.1) g/dL Lipase 91 (23-300) U/L Urine Color Yellow (Yellow) Urine Appearance Cloudy H (Clear) Urine pH 6.0 (5.0-9.0) Ur Specific [place] 1.007 (1.001-1.035) Urine Protein Negative (Negative) mg/dL Urine Glucose (UA) Negative (Negative) mg/dL Urine Ketones Negative (Negative) mg/dL Ur Blood (Man) Negative (Negative) Urine Nitrate Negative (Negative) Urine Bilirubin Negative (Negative) Urine Urobilinogen 0.2 (<2.0) mg/dL Leukocyte Esterase Rfl Negative (Negative) HARPAL/UL Urine RBC 0-2 (0-2) /hpf Urine WBC 0-5 (0-3) /hpf Ur Squamous Epith Cells None seen (Few) /hpf Urine Bacteria None seen /hpf Urine Casts 0-2 <Deangelo Bustillos MD - Last Filed: 07/23/25 23:36> Discharge Plan Discharge Clinical Impression: Diarrhea <Gaurang Orta MD - Last Filed: 07/23/25 21:05> Patient Disposition: Home <Gaurang Orta MD - Last Filed: 07/23/25 21:05> Condition: Stable <Gaurang Orta MD - Last Filed: 07/23/25 21:05> Instructions: Antibiotic Form, Acute Diarrhea (ED) <Gaurang Orta MD - Last Filed: 07/23/25 21:05> Additional Instructions: You were seen in the emergency department for diarrhea. Please make sure you are drinking plenty of fluids. You can try mzqa-kwy-cvpnykx medicine such as Pepto-Bismol or Imodium. Return if you develop fevers severe abdominal pain or bloody diarrhea. <Gaurang Orta MD - Last Filed: 07/23/25 21:05> Patient Language: Japanese <Gaurang Orta MD - Last Filed: 07/23/25 21:05> Prescriptions: No Action pantoprazole 40 mg tablet,delayed release (DR/EC) 40 mg PO QAM finasteride-tadalafil 5-5 mg capsule 1 cap PO DAILY Rx Instructions: administer on an empty stomach rosuvastatin 10 mg tablet 5 mg PO DAILY sildenafil 50 mg tablet 50 mg PO DAILY PRN (Reason: activity) Rx Instructions: administer 30 minutes to 4 hours before activity meclizine 25 mg tablet 25 mg PO BID PRN (Reason: dizziness) Qty: 30 0RF <Gaurang Orta MD - Last Filed: 07/23/25 21:05> Follow-up/Referrals: Ignacio Encinas DO [Primary Care Provider, Internal Medicine] - 3 Days Referral Note: Diarrhea <Gaurang Orta MD - Last Filed: 07/23/25 21:05>
[2025-07-23 19:40] VITALS: BP 134/82; PULSE 70; RESP 15; TEMP 36.3; O2SAT 97
[2025-07-23 20:30] VITALS: BP 122/66; PULSE 78; RESP 15; O2SAT 98
[2025-07-23 20:33] LABS: Hematocrit 39.9 % (42.0-52.0); Hemoglobin 13.4 g/dL (14.0-18.0); Immature Granulocyte Percent A 0.3 % (0-0.5); Lymphocytes Absolute Auto 3.68 K/mm3 (0.9-3.2); Mean Corpuscular HGB Conc 33.6 g/dl (32-36); Mean Corpuscular Hemoglobin 30.9 pg (26-34); Mean Corpuscular Volume 92.1 fl (80-100); Nucleated Red Blood Cells Absolute Auto 0.000 K/mm3 (0.0-0.012); Nucleated Red Blood Cells Perc 0.0 % (0.0-0.2); Platelet Count Result 348 k/mm3 (150-375); Red Blood Count 4.33 M/mm3 (4.6-6.20); White Blood Count 11.7 K/mm3 (4.5-10.0)
[2025-07-23 20:51] LABS: Alanine Aminotransferase 18 U/L (6-50); Albumin Level 4.5 g/dL (3.5-5.1); Alkaline Phosphatase 79 U/L (38-126); Anion Gap 9 mmol/L (4-12); Aspartate Amino Transferase 32 U/L (17-59); Bilirubin,Total 0.6 mg/dL (0.2-1.3); Blood Urea Nitrogen 18 mg/dL (9-20); Calcium 9.6 mg/dL (8.4-10.2); Carbon Dioxide 24 mmol/L (22-30); Chloride 103 mmol/L (98-107); Estimated CRCL calculation 52 ml/min; Estimated Glomerular Filt Rate > 60; Glucose 76 mg/dL (65-110); Lipase 91 U/L (23-300); Potassium 3.9 mmol/L (3.4-5.0); Sodium 136 mmol/L (137-145); Total Protein 7.2 g/dL (6.3-8.2)
[2025-07-23 21:03] VITALS: BP 133/78; PULSE 74; RESP 15; O2SAT 96
[2025-07-23 21:05] LABS: Add Urine Microscopic? YES; Appearance Urine Cloudy (Clear); Glucose Urine UA Negative (Negative); Leukocyte Esterase Ur Negative LEU/UL (Negative); Nitrate Urine Negative (Negative); Non Pathogenic Casts 0-2; Specific Grav Ur 1.007 (1.001-1.035)
[2025-07-23 23:00] VITALS: BP 116/79; PULSE 69; RESP 15; O2SAT 97
== END 2025-07-24 00:02 | disposition home or self-care (01) ==
PROVIDERS: Physician Assistant; Emergency Provider Emergency Medicine; PCP Internal Medicine
DX: R19.7 Diarrhea, unspecified (principal); E78.5 Hyperlipidemia, unspecified; R73.03 Prediabetes; N40.0 Benign prostatic hyperplasia without lower urinary tract symptoms; K21.9 Gastro-esophageal reflux disease without esophagitis; K58.9 Irritable bowel syndrome, unspecified; F17.210 Nicotine dependence, cigarettes, uncomplicated; Z90.49 Acquired absence of other specified parts of digestive tract; Z79.899 Other long term (current) drug therapy
CPT/HCPCS: 36415; 74177; 80053; 81001; 83605; 83690; 85025; 99284; Q9967